=== PATIENT | male | born 1945 | race Caucasian/White ===

== ENCOUNTER 2017-11-04 05:50 | Day surgery (SDC) | payer BC ==
[2017-11-03 13:43] VITALS: BMI 34.2
[~2017-11-04 05:50] MED LIST: Cyclopentolate 1% Opth Drop 2 ML BOT FS SCH; Fluorouracil 100 MG, Enoxaparin Sodium 25 MG, EPINEPHrine 0.3 MG in Ophthalmic Irrigati... IVPB SCH; Phenylephrine 2.5% Ophth Soln 5 ML BOT FS SCH
[2017-11-04] MEDS ORDERED: Phenylephrine 2.5% Ophth Soln 5 ML BOT ONE (06:11)
[2017-11-04] MEDS ORDERED: Cyclopentolate 1% Opth Drop 2 ML BOT ONE (06:11)
[2017-11-04] MEDS ORDERED: Lidocaine 2% 10 ML INJ ONE (06:17)
[2017-11-04] MEDS ORDERED: Fentanyl 100 MCG/2 ML VIAL ONE (06:17)
[2017-11-04] MEDS ORDERED: Midazolam HCl 2 mg/2 ml Vial ONE (06:17)
[2017-11-04] MEDS ORDERED: PROPOFOL 20 ML ONE (06:17)
--- NOTE | 2017-11-04 09:43 | OP ---
DATE OF PROCEDURE: 11/04/2017 PREOPERATIVE DIAGNOSIS: Epiretinal membrane, right eye. POSTOPERATIVE DIAGNOSIS: Epiretinal membrane, right eye. PROCEDURE: Pars plana vitrectomy and membrane peel, right eye. SURGEON: Dr. Mathew Bullock ANESTHESIA: Local with monitored anesthesia care. PROCEDURE IN DETAIL: The patient was identified in the preoperative holding area. Appropriate conse nt for planned surgical procedure on the right eye been obtained. The patient was transported to the operative suite. Appropriate cardiopulmonary monitoring was established. Local anesthesia was obta ined using retrobulbar and modified Van Lint lid block using 50/50 mixture of 4% lidocaine, 0.75% bup ivacaine. The patient was prepped and draped in the usual sterile manner for ophthalmic surgery on t he right eye. Lid speculum was placed in the right eye. The 25-gauge trocars were placed in conjunc tiva and sclera supratemporally, inferotemporally, and supranasally. Infusion line was placed infero temporally. Light pipe and vitreous cutter were inserted into the eye. Core vitrectomy was performe d. Posterior hyaloid face was elevated and peeled into the periphery using vacuum suction. Indocyan ine green dye was infused on the posterior pole x1, identifying the epiretinal membrane. This was el evated using membrane scraper and peeled in several pieces across the macula. Periphery examined usi ng 360 degrees using the indirect ophthalmoscopy, no holes, breaks or tears were identified. Prophyl actic laser was placed behind the sclerotomy sites. Complete air fluid exchange was performed and ai r was left in the eye. Trocars were removed. The eye was noted to retain pressure well. Retrobulba r Kenalog and subconjunctival Ancef were placed. Atropine and antibiotic ointment were placed, and t he eye was patched and shielded. The patient was taken to the postoperative recovery unit in good co ndition having suffered no immediate perioperative complications. DISCHARGE INSTRUCTIONS: The patient was instructed to keep patch and shield on, avoid lifting or jose j ding, and follow up in the morning with Dr. Bullock.
[2017-11-04] MEDS ORDERED: PROPOFOL 200 MG/20 ML VIAL ONE (12:29)
[2017-11-04] MEDS ORDERED: Lidocaine 1% PF 5 ML VIAL ONE (12:29)
== END 2017-11-04 08:43 | disposition home or self-care (01) ==
LOC: SDC 05:50
PROVIDERS: ATTEND Ophthalmology Retina Specialist
PROC: 08NE3ZZ Release Right Retina, Percutaneous Approach (ICD-10-PCS; principal; 2017-11-04)
PROC: 08T43ZZ Resection of Right Vitreous, Percutaneous Approach (ICD-10-PCS; principal; 2017-11-04)
DX: H35.371 Puckering of macula, right eye (principal); Z79.82 Long term (current) use of aspirin; Z79.899 Other long term (current) drug therapy; Z88.0 Allergy status to penicillin; Z88.7 Allergy status to serum and vaccine; Z98.890 Other specified postprocedural states
CPT/HCPCS: J0171; J1650; J2001; J2250; J2704; J3010; J9190

== ENCOUNTER 2018-08-10 08:13 | Outpatient (CLI) | payer BC ==
[2018-08-10] MEDS ORDERED: Gadobenate Dimeglumine 529 MG/1 ML (20ML VIAL) ONE (10:26)
--- NOTE | 2018-08-10 13:22 | MRI ---
MRI BRAIN WITH AND WITHOUT CONTRAST: 08/10/2018 HISTORY: A 73-year-old male with R42, dizziness. COMPARISON: None. TECHNIQUE: Multiple sequences obtained in axial, sagittal, and coronal planes; pre and post IV injection of gado linium-based contrast agent: MultiHance 20 mL. FINDINGS: There is a small region of left frontal lobe encephalomalacia and gliosis, with no overlying post staci gical changes. There is a moderate degree of chronic ischemic white matter changes in the periventri cular and deep white matter, and some in the subcortical white matter, due to microvascular atheroscl erosis. There are also chronic ischemic white matter changes in the ned. The ventricles are normal in size and configuration. No mass effect, midline shift, extraaxial fluid collection, abnormal int raaxial enhancement, or mass. There are a few punctate foci of magnetic susceptibility artifact, ind icating remote hemorrhages, one in the right occipital lobe and two in the left posteromedial tempora l lobe, near the occipital lobe. These could represent a very mild degree of amyloid angiopathy or a very mild case of chronic hypertensive encephalopathy. There is no recent hemorrhage. There are bi lateral mastoid effusions. IMPRESSION: 1. No acute intracranial findings. 2. Small, focal, old insult in the left frontal lobe, probably an old infarction. 3. Moderate degree of chronic ischemic white matter changes. 4. Possible minimal amyloid angiopathy vs. minimal chronic hypertensive encephalopathy. 5. Bilateral mastoid effusions. DENICE Vargas POS: AMAURI
--- NOTE | 2018-08-10 14:37 | NM ---
NUCLEAR MEDICINE [facility] BRAIN SCAN: Date: 08/10/18 HISTORY: 73-year-old male with dizziness and giddiness. TECHNIQUE: Patient was premedicated with 130 mg of potassium iodide 1 hour prior to injection of radiopharmaceut ical. 4.6 mCi of I-123 Ioflupane injected IV. 3 hours later, scintigraphic images of the brain performed in axial plane. FINDINGS: There is fairly symmetrical uptake in the bilateral caudate nuclei. There is diminished uptake in the bilateral putamina. The findings are suggestive of Parkinsonism. IMPRESSION: Findings suggestive of early Parkinsonism. Recommend clinical correlation. POS: AMAURI
== END 2018-08-10 08:14 | disposition home or self-care (01) ==
LOC: NM 08:13
PROVIDERS: ATTEND Psychiatry & Neurology Neurology
DX: R42 Dizziness and giddiness (principal); H74.8X3 Other specified disorders of middle ear and mastoid, bilateral
CPT/HCPCS: 70553; 78607; 82565; A9577; A9584

== ENCOUNTER 2019-03-04 08:18 | Inpatient (IN) | payer BC, MEDICARE ==
[2019-03-04] MEDS ORDERED: PHENYLEPHRINE-NS 100 MCG/ML 10 ML SYRINGE ONE (08:29)
[2019-03-04] MEDS ORDERED: PROPOFOL 200 MG/20 ML VIAL ONE (08:29)
[2019-03-04] MEDS ORDERED: Vecuronium 10 MG VIAL ONE (08:29)
[2019-03-04] MEDS ORDERED: Rocuronium Bromide 10 MG/ML (10ML VIAL) ONE (08:29)
--- NOTE | 2019-03-04 08:40 | CT ---
EXAM: Brain CT scan Without contrast: HISTORY: Level One stroke left-sided weakness left-sided facial droop COMPARISON: Brain MRI 08/10/2018 FINDINGS: Small old left frontal cortical infarct. Small focal area of scalp swelling over the right parietal region. Atrophy and chronic white matter ischemic change. No focal mass or midline shift. No intra or extra-axial hemorrhage. Minimal mucosal disease. Bilateral mastoid abnormal opacification worse on the left unchanged from prior MRI. IMPRESSION: No significant acute mass or bleed. 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 Other findings as above. Findings discussed with Dr. Landa in the emergency room at 8:33 AM CODE CR
[2019-03-04] MEDS ORDERED: Midazolam HCl 5 mg/ml Vial ONE (08:57)
[2019-03-04] MEDS ORDERED: Succinylcholine Chloride 20 MG/ML 10 ml SYRINGE FS ONE (08:57)
[2019-03-04] MEDS ORDERED: Communication Order-Pharmacy FS ONE (09:00)
[2019-03-04] MEDS ORDERED: niCARdipine 20MG In NaCl 20 MG/200 ML BAG ONE (09:04)
[2019-03-04] MEDS ORDERED: fentaNYL Citrate/PF 2,000 MCG in Sodium Chloride 0.9% 60 ML IV SCH (09:07)
--- NOTE | 2019-03-04 09:08 | CT ---
EXAM: CT angiogram of the head including 3-D rendering: HISTORY: Left facial droop, left-sided weakness, Level One stroke alert COMPARISON: None FINDINGS: There is adequate opacification of the intracranial arteries. Visualized vertebral and basilar arteries: Unremarkable. Right and left intracranial internal carotid arteries: Calcified plaques without effusion or signific ant stenosis. Right and left Anterior and posterior cerebral arteries: Unremarkable. Right and left middle cerebral arteries: Using Nascet Criteria there is a severe stenosis of the dist al right M1 segment with intraluminal clot but without complete occlusion. No evidence for intracranial aneurysm. IMPRESSION: Severe stenosis of the distal right M1 segment without complete occlusion EXAM: CT angiogram of the neck including 3-D rendering: HISTORY: Left-sided facial droop Level One stroke COMPARISON: None FINDINGS: There is adequate opacification of the extracranial arterial tree. The origins of the right and left carotid and vertebral arteries demonstrate no significant stenosis. Right common, internal, and external carotid arteries:Calcified plaque at the origin of the ICA with mild stenosis using Nascet Criteria. Left common, internal, and external carotid arteries:Calcified plaque at the origin of the left ICA w ith mild stenosis. Moderate stenosis of the origin of the right subclavian artery. Right and left vertebral arteries and basilar artery:No significant stenosis or occlusion. Soft tissue neck demonstrates no evidence for significant adenopathy, mass, or abnormal fluid collect ion. IMPRESSION: Mild stenotic changes at the origins of the right and left ICA with calcified plaque. Moderate stenosis of the origin of the right subclavian artery. Findings were discussed with Dr. Landa in the emergency room at 9:00 AM CODE CR
[2019-03-04] MEDS ORDERED: Fentanyl 100 MCG/2 ML VIAL ONE ×2 (09:17→10:15)
[2019-03-04] MEDS ORDERED: Propofol 1,000 MG/100 ML VIAL IV ONE (09:19)
[2019-03-04 09:42] LABS: #Basophils 0.1 thou/uL (0.0-0.2); #Eosinphils 0.4 thou/uL (0.0-0.7); #Lymphocytes 1.3 thou/uL (1.20-3.40); #Monocytes 0.9 thou/uL (0.11-0.59); #Neutrophils 4.1 thou/uL (1.40-6.50); %Basophils 0.9 % (0.0-1.0); %Eosinophils 5.3 % (0.0-10.0); %Lymphocytes 18.8 % (21.0-51.0); %Monocytes 13.8 % (0.0-10.0); %Neutrophils 61.3 % (42.0-75.0); Hemoglobin 15.5 g/dL (14.0-18.0); Mean Corpuscular HGB CONC 33.9 g/dL (32.0-36.0); Mean Corpuscular Hemoglobin 33.1 pg (27.0-31.0); Mean Corpuscular Volume 97.6 fL (78.0-98.0); Platelet Count 175 thou/uL (130-400); RBC Distribution Width 12.6 % (11.5-14.5); Red Blood Cell (RBC) Count 4.68 mill/uL (4.70-6.10); White Blood Cell (WBC) Count 6.7 thou/uL (4.8-10.8)
[2019-03-04 09:49] LABS: PTT 26.8 SEC (22.9-36.1); Prothrombin Time 12.9 SEC (12.0-14.7)
[2019-03-04] MEDS ORDERED: Heparin 10,000 UNITS/1 ML VIAL ONE (09:54)
[2019-03-04] MEDS ORDERED: Lidocaine 1% (PF) 30 ML VIAL ONE (09:55)
[2019-03-04 10:01] LABS: Actual Bicarbonate (HCO3a) 23.6 mEq/L (22-28); Base Excess (BEa) -0.8 mEq/L (-2.0 to +3.0); CO2 Tension 38.2 mmHg (35.0-45.0); O2 Tension (PaO2) 372.8 mmHg (> 70.0); pH, Arterial 7.41 (7.35-7.45)
--- NOTE | 2019-03-04 10:01 | RAD ---
Exam: Chest one view HISTORY: Post intubation, left-sided chest pain FINDINGS: NG tube and endotracheal tubes are in satisfactory location. There is some mild bilateral vascular co ngestion. Minimal parenchymal changes in the left infrahilar region, nonspecific possibly chronic versus some subsegmental atelectasis versus mild pneumonitis. IMPRESSION: Life support tubes in place. Postop midline sternotomy. Increased markings in the left infrahilar reg ion, nonspecific. Mild bilateral vascular congestion. No old studies.
[2019-03-04 10:02] LABS: Analyzer IN Cardio ER; Calcium, Ionized 1.15 mmol/L (1.12-1.30); Carboxyhemoglobin (COHb) 0.3 gm% (0.0-3.0); Hemoglobin (Hb) 15.7 g/dL (14.0-18.0); Potassium - ABG Lab 4.52 mmol/L (3.70-5.30); Puncture Site RRA
[2019-03-04 10:05] LABS: ALT (SGPT) 12 U/L (8-55); AST (SGOT) 17 U/L (5-34); Alkaline Phosphatase 74 U/L (40-150); Anion Gap 12 mmol/L (10-20); BUN (Urea Nitrogen) 12 mg/dL (8.4-25.7); Bilirubin, Total 0.6 mg/dL (0.2-1.2); Calc. Creatinine Clearance 0 mL/min (70-130); Calcium 9.2 mg/dL (7.8-10.44); Carbon Dioxide 22 mmol/L (23-31); Chloride 107 mmol/L (98-107); Estimated GFR-MDRD 47; Globulin 2.8 g/dL (2.4-3.5); Glucose 87 mg/dL (83-110); Potassium 4.4 mmol/L (3.5-5.1); Protein, Total 6.8 g/dL (5.8-8.1); Sodium 137 mmol/L (136-145)
[2019-03-04] MEDS ORDERED: Rocuronium Bromide 50 MG/5 ML VIAL ONE (11:11)
--- NOTE | 2019-03-04 11:13 | PRG ---
DATE OF SERVICE: 03/04/2019 Mr. Mitchell is a 73-year-old gentleman, who had an altered level of consciousness with mild hemiparesis later this morning. He was brought into the ER, where he underwent a CT examination of the head, which was negative for hemorrhage. He was given IV tPA and he also underwent CT angiography. CT angiography revealed what was suggestive of incomplete occlusion of the right middle cerebral artery with appropriate filling to the distal vessels. Because he had mild degree of lateralizing findings, he was taken to the slab off mill tender where he underwent angiography. Angiography revealed no evidence for thrombus or occlusion. This is indicative of either artifact on the CTA or resolution of clot as a result of the tPA. He is intubated as he was intubated in the ER. He was intubated due to diminishing level of consciousness. In my view, it is conceivable there is some underlying other problem accountable for his symptoms. He will be admitted to the ICU. Medicine service has been notified by the ER. No resumed care for Mr. Mitchell. Job ID: [id number]
[2019-03-04 11:37] LABS: Actual Bicarbonate (HCO3a) 20.9 mEq/L (22-28); Analyzer IN Cardio OR; Base Excess (BEa) -2.2 mEq/L (-2.0 to +3.0); CO2 Tension 31.5 mmHg (35.0-45.0); Calcium, Ionized 1.06 mmol/L (1.12-1.30); Carboxyhemoglobin (COHb) 0.3 gm% (0.0-3.0); O2 Tension (PaO2) 137.9 mmHg (> 70.0); Potassium - ABG Lab 4.11 mmol/L (3.70-5.30); Puncture Site ALINE; pH, Arterial 7.44 (7.35-7.45)
[2019-03-04 11:38] LABS: ALV-art Gradient 105.925 (0-20)
[2019-03-04] MEDS ORDERED: hydrALAZINE 20 MG/ML VIAL ONE (12:06)
[2019-03-04] MEDS ORDERED: Iopamidol 370 76% 100 ML VIAL ONE (12:53)
[2019-03-04] MEDS ORDERED: ISOVUE-370 76%-LOCM 1 ML ONE (12:56)
[2019-03-04] MEDS ORDERED: Ondansetron PF 4 MG/2 ML Vial IVP PRN (13:18)
[2019-03-04] MEDS ORDERED: Sodium Chloride 0.65% Nasal 44 ML BOT EA NARE PRN (13:18)
[2019-03-04] MEDS ORDERED: niCARdipine 25 MG in Sodium Chloride 0.9% 250 ML 250 ML IVPB PRN (13:18)
[2019-03-04] MEDS ORDERED: Artificial Tears 18 DROP/0.9 ML EA EYE PRN (13:18)
[2019-03-04] MEDS ORDERED: Labetalol HCl 100 MG/20 ML VIAL SLOW IVP PRN (13:18)
[2019-03-04] MEDS ORDERED: hydrALAZINE 20 MG/ML VIAL SLOW IVP PRN (13:18)
[2019-03-04] MEDS ORDERED: Ventilator Sedation Protocol 1 EACH FS SCH (13:18)
--- NOTE | 2019-03-04 14:14 | HP ---
PRIMARY CARE PHYSICIAN: JANELLE Chaves REASON FOR ADMISSION: CVA status post tPA. HISTORY OF PRESENT ILLNESS: A 73-year-old male, who has history of Parkinson's disease, who was brought to emergency room for stroke-like symptoms. As per report, he had a fall, loss of consciousness and subsequently decreased responsiveness around 7:00 a.m. this morning. As per Paramedics, the patient was following some commands. He was maintaining his airway. As per family member, when he woke up , at that time the patient was fine, but all of suddenly symptoms started with falling and decreased responsiveness, which was witnessed. The patient fell down on his back and got mild contusion. The patient has underlying Parkinson's disease and he is following Dr. Gorge Fall as an outpatient basis. In our emergency room, the patient was more lethargic and for airway protection, he was intubated. The patient also received tPA. As a part of stroke workup, the patient had CT angiography, which showed severe stenosis of distal right M1 segment without complete occlusion and CT brain did not show any acute process other than old left frontal cortical infarct. There was no contraindication for tPA and after controlling blood pressure in the emergency room, the patient was given tPA and subsequently, he was taken to cardiac yard labor supervisor for cerebral angiography and as per Dr. Velasquez, there was no blockage. Subsequently, the patient is being admitted to ICU. Currently, the patient is already intubated. He cannot provide any history. ER physician has been notified pleating supervisor as well as neurosurgeon and I spoke with neurosurgeon as well. REVIEW OF SYSTEMS: All review of systems tried to be reviewed with the patient , but unable to review at this point because of intubated status. PAST MEDICAL HISTORY: Parkinson's disease and hypertension. PAST SURGICAL HISTORY: Unknown. The patient is not able to provide any history because of intubated status. FAMILY HISTORY: Unable to obtain because of intubated status. CURRENT HOME MEDICATION: Unable to obtain the patient home medication to verify. ALLERGIES: PER REPORT, THE PATIENT IS ALLERGIC TO PENICILLIN AND TETANUS TOXOID. SOCIAL HISTORY: The patient is . No history of tobacco, alcohol, or illicit drug abuse as per report. EMERGENCY ROOM COURSE: The patient is given tPA. He was given fentanyl, Diprivan as well as Cardene drip. PHYSICAL EXAMINATION: VITAL SIGNS: Currently, blood pressure 160/70, pulse 95, respiratory rate 18, and saturation 100% on ventilator. Weight 97.9 kg. GENERAL: The patient is currently intubated. HEENT: Head, mild abrasion over right occipital region noted. Eyes, pupil are reactive to light. Extraocular muscle intact. ENT, endotracheal tube in place. NECK: Supple. No JVD. LUNGS: Clear to auscultation without any rhonchi or rales. CARDIAC: S1 and S2 appears regular. No murmur. No gallop. No rub. ABDOMEN: Soft. Bowel sounds present. Nondistended. No peritoneal sign. BACK: Unremarkable. EXTREMITIES: Upper extremities, passive movement of all joints are normal. Lower extremity, no edema. NEUROLOGIC: Unable to assess at this point because he is currently intubated. SKIN: No skin rash. HEMATOLOGICAL SYSTEM: No lymphadenopathy. PSYCHIATRIC: Unable to assess at this point. SIGNIFICANT LABORATORY DATA: EKG showing sinus tachycardia, nonspecific ST-T changes. CT angiography reported as severe stenosis of distal right M1 segment without complete occlusion, moderate stenosis of right subclavian artery, vertebral and basilar artery without any stenosis. CT brain showed no acute intracranial process. CBC; WBC 6.7, hemoglobin 15.5, and platelet 175. INR 1.0. ABG; pH 7.41, CO2 of 38.2, O2 of 372, and saturation 99.4. BMP; sodium 137, potassium 4.4, chloride 107, carbon dioxide 22, BUN 12, creatinine 1.46, glucose 87, and calcium 9.2. LFT; AST 17, ALT 12, alkaline phosphatase 74, and albumin 4.0. Troponin I less than 0.010. ASSESSMENT AND PLAN: 1. Cerebrovascular accident status post tPA. CT brain is negative and CT angiography showed M1 stenosis. The patient is given tPA and the patient had cardiac cath with cerebral angiography, which was negative for any blockage. The patient is intubated for airway protection and he will be in ICU for 24 hours after tPA. 2. Acute respiratory failure, on intubation for airway protection. [facility] will be consulted for vent management. 3. Parkinson's disease. 4. Hypertension with hypertensive urgency, resolved with Cardene drip. 5. Dyslipidemia. We will continue Crestor 20 mg p.o. daily. 6. Anxiety and depression. Once we verify the patient's home medication, we will resume Lexapro and clonazepam. 7. Chronic kidney disease, stage 3. We will repeat labs tomorrow. 8. Deep venous thrombosis prophylaxis. We will start Lovenox from tomorrow. 9. Gastrointestinal prophylaxis, Pepcid 20 mg IV b.i.d. 10. Code status. The patient will be full code. The patient's is surrogate decision maker. As a part of stroke workup, we will obtain MRI brain echocardiography. We will check lipid profile, TSH tomorrow. As per protocol, we will also consult Neurology. Job ID: [id number] [facility]
[2019-03-04] MEDS ORDERED: Fentanyl BOLUS 250 ML IVPB PRN (14:29)
[2019-03-04] MEDS ORDERED: Morphine 2 MG/ML SYRINGE SLOW IVP PRN (14:29)
[2019-03-04] MEDS ORDERED: Propofol BOLUS 1,000 MG/100 ML VIAL IV PRN (14:29)
[2019-03-04] MEDS ORDERED: DISCONTINUE PREVIOUS NARCOTIC PAIN MEDICATIONS AND BENZODIAZEPINES FS SCH (14:29)
[2019-03-04] MEDS: fentaNYL Citrate/PF 2,000 MCG in Sodium Chloride 0.9% 60 ML IV SCH (14:58)
[2019-03-04] MEDS: Propofol 1,000 MG/100 ML VIAL IV PRN ×2 (16:03→21:11)
--- NOTE | 2019-03-04 17:33 | CON ---
DATE OF TELEMEDICINE CONSULTATION: 03/04/2019 JOSIE CAZARES CHIEF COMPLAINT: Acute stroke. HISTORY OF PRESENT ILLNESS: The patient's gave the medical history. The patient was awake this morning. He has been recently diagnosed with Parkinson disease. He went down to take his medications. In a little bit, the patient's found him unresponsive in the kitchen after he fell. He was following some commands Paramedics saw him, and then he woke up, but he had decreased responsiveness, and on CTA, he had M1 occlusion, IV tPA was given, and he was also taken to cardiac general labor for cerebral angiography by Dr. Velasquez, and there was no blockage. He is now admitted to the hospital, and before intubation, the nurse called me stating he was moving a lot and he was tightening his left arm and leg and he had to be intubated because of restlessness. The patient is currently intubated and sedated and some limitation to the exam because of that. The patient has been recently diagnosed with Parkinson disease. PAST MEDICAL HISTORY: Parkinson disease and hypertension. PAST SURGICAL HISTORY: Coronary artery bypass graft which was a 4-vessel bypass 12 years ago. FAMILY HISTORY: Father in his 50s from phlebitis. Mother in her 70s from coronary artery disease. Brother has cardiac or lung issue per , and she could not remember the name of the condition. The patient has 3 sons, who are all grown and healthy, youngest son is 35. No family history of strokes or Parkinson's. REVIEW OF SYSTEMS: Unable to obtain. PHYSICAL EXAMINATION: VITAL SIGNS: Blood pressure 152/64, pulse 88, respiratory rate 17, O2 saturation is 100%. He is on vent and also partial sedation with propofol during the exam. CHEST: Clear vesicular breathing. CARDIOVASCULAR: S1 and S2 heard. No murmurs. ABDOMEN: Soft. NEUROLOGIC: Pupils are 2 mm, reactive to light. Facial asymmetry with left facial weakness. He was able to protrude his tongue to command. Higher intellectual functions, he tries to obey some commands, but also has spontaneous movement. On motor examination, he was able to squeeze the examiner's hand on the left side and had spontaneous movement of the right upper extremity and lower extremity. On the left lower extremity, he tries to move it, but has positive withdrawal to pain. Involuntary movements, he had resting tremor in the right lower extremity and also left upper extremity. LABORATORY DATA: White count 6.7, hemoglobin 16.5, hematocrit 45.7, platelets 175. PT 12.9, INR 1, PTT 26.8. Chemistry: Sodium 137, potassium 4.4, chloride 107, bicarb 22, BUN 12, creatinine 1.46, glucose 87. Liver panel within normal limits for now, and he is pending cholesterol and lipid profile. IMAGING STUDIES: His CT angiography of [place] of [place] showed distal M1 severe stenosis with intraluminal clot, but without complete occlusion. He had severe stenosis of the distal right M1 segment. Angiography of the neck showed mild stenotic changes at the origin of the right ICA and left ICA with calcified plaque and moderate stenosis of the right subclavian artery. CT of the head was completed. There was an old left frontal cortical infarct. Other findings are negative. Known acute stroke was noted. In general labor, the procedural report was reviewed, and the patient had no visible clot per record. IMPRESSION: The patient is a 73-year-old man, who presented with right M1 occlusion to the ER. This was presumed to be the cause of his loss of consciousness this morning and his fall, and he had a prior stroke in the frontal area on the left side. He has Parkinson disease and also remote history of coronary artery disease at baseline. His examination showed tremor in the right lower extremity and left upper extremity and also spontaneous movement of the right side when he was more awake, and some effort with left upper extremity, not much effort with the left lower extremity. Clinical history and diagnosis most consistent with acute cerebrovascular accident in the right MCA territory. RECOMMENDATIONS: I discussed with the that it would take him some time to recover, and we will be following with them closely. Please follow acute stroke IV tPA protocol for management of his ischemic event and repeat CT tomorrow. I will follow up the patient with you. Job ID: [id number] JASMINA
[2019-03-04] MEDS: Rosuvastatin 20 MG TAB PO SCH (21:40)
--- NOTE | 2019-03-04 23:41 | CON ---
DATE OF CONSULTATION: HISTORY OF PRESENT ILLNESS: Mr. Mitchell is a 73-year-old male, who presented with altered mental status and hemiplegia. He subsequently received tPA and then went to the pathology laboratory aides teacher with Neurosurgery. He has now been admitted, mechanically ventilated in the ICU. He was sedated, when I evaluated him. PAST MEDICAL HISTORY: Remarkable for Parkinson disease and hypertension. FAMILY HISTORY: Unknown. There is no one in the room. SOCIAL HISTORY: Unknown. REVIEW OF SYSTEMS: Not obtainable. PHYSICAL EXAMINATION: VITAL SIGNS: Heart rate is 88, respiratory rate 18, oximetry is 100%, and blood pressure 152/64. He has an arterial line in. NECK: There is no cervical lymphadenopathy. LUNGS: Clear. HEART: Regular rhythm. ABDOMEN: Soft. EXTREMITIES: Without edema. LABORATORY DATA: White count 6.7, hemoglobin 15.5, and platelets 175. Sodium 137, potassium 4.4, chloride 107, bicarb 22, BUN 12, and creatinine 1.46. IMPRESSION: Hemiplegia with altered mental status, suggestive of a thrombotic cerebrovascular accident, now status post tPA. We will continue mechanical ventilation with serial neuro exams. Blood gas shows a pH 7.44, CO2 31, PO2 137 on 40%. Job ID: [id number]
[2019-03-05] MEDS: Propofol 1,000 MG/100 ML VIAL IV PRN ×3 (01:18→13:08)
[2019-03-05 04:56] LABS: Anion Gap 11 mmol/L (10-20); BUN (Urea Nitrogen) 12 mg/dL (8.4-25.7); Calc. Creatinine Clearance 80 mL/min (70-130); Calcium 8.3 mg/dL (7.8-10.44); Carbon Dioxide 23 mmol/L (23-31); Cardiac Risk 3.3 (Less than 4.5); Chloride 107 mmol/L (98-107); Cholesterol 117 mg/dl (< 200 Desired); Estimated GFR-MDRD 59; Glucose 91 mg/dL (83-110); HDL Cholesterol 36 mg/dL (>60 Neg Risk); LDL Cholesterol, Calculated 53 mg/dL; Potassium 3.7 mmol/L (3.5-5.1); Sodium 137 mmol/L (136-145); Triglycerides 140 mg/dL (Less than 150)
[2019-03-05 04:58] LABS: Band 3 % (5-11); Eosinophils 3 % (0-10); Hemoglobin 13.4 g/dL (14.0-18.0); Lymphocytes 16 % (21-51); MDiff Complete? YES; Mean Corpuscular HGB CONC 34.5 g/dL (32.0-36.0); Mean Corpuscular Hemoglobin 32.5 pg (27.0-31.0); Mean Corpuscular Volume 94.1 fL (78.0-98.0); Mean Platelet Volume 8.3 fL (7.4-10.4); Monocytes 14 % (0-10); Neutrophil 64 % (42-75); Platelet Count 193 thou/uL (130-400); Platelet Morphology Comment Appears Adequate; RBC Distribution Width 12.5 % (11.5-14.5); Red Blood Cell (RBC) Count 4.14 mill/uL (4.70-6.10); White Blood Cell (WBC) Count 9.7 thou/uL (4.8-10.8)
--- NOTE | 2019-03-05 08:19 | CT ---
PRELIMINARY REPORT/[facility]/EMERGENCY AFTER HOURS PROCEDURE: EXAM: CT Head Without Contrast EXAM DATE/TIME: 03/05/2019 4:15 AM CLINICAL HISTORY: 73 years old, male; Condition or disease; Patient HX: F/u CVA post tpa administration TECHNIQUE: Imaging protocol: Computed tomography of the head without contrast. COMPARISON: CT Brain WO Con 03/04/2019 8:29 AM FINDINGS: Brain: Volume loss and chronic small vessel ischemic change. Left frontal encephalomalacia. No intrac ranial hemorrhage. Ventricles: Right parieto-occipital cytotoxic edema compatible with known acute/subacute stroke. Bones/joints: See Mastoid Air Cells Finding. Sinuses: Complete opacification of the left maxillary sinus and partial opacification of the ethmoid air cells suspicious for sinusitis. Mastoid air cells: Partial opacification of the left mastoid air cells. No perceptible mastoid fractu re. No osseous erosion, overlying inflammation, or subperiosteal abscess to indicate mastoiditis. Soft tissues: Right parietal scalp hematoma. IMPRESSION: 1. Right parieto-occipital cytotoxic edema compatible with known acute/subacute stroke. 2. No intracranial hemorrhage. 3. Complete opacification of the left maxillary sinus and partial opacification of the ethmoid air ce lls suspicious for sinusitis. Thank you for allowing us to participate in the care of your patient. Dictated and Authenticated by: Jim Bourgeois MD 03/05/2019 4:28 AM Central Time ([place] & [place]) FINAL REPORT EMERGENCY AFTER HOURS BRAIN CT WITHOUT IV CONTRAST: Date: 03/05/19 Time: 0416 hours HISTORY: CVA. COMPARISON: 03/04/19. FINDINGS/IMPRESSION: Developing right parietooccipital edema, evidence for acute/subacute stroke findings. Complete opacif ication of the left maxillary and partial opacification of the ethmoid sinuses. Report in agreement with preliminary report given on-call by Nicholas. POS: AMAURI
[2019-03-05 08:29] LABS: Actual Bicarbonate (HCO3a) 21.4 mEq/L (22-28); Base Excess (BEa) -3.6 mEq/L (-2.0 to +3.0); CO2 Tension 38.6 mmHg (35.0-45.0); Calcium, Ionized 1.08 mmol/L (1.12-1.30); Carboxyhemoglobin (COHb) 0.9 gm% (0.0-3.0); Hemoglobin (Hb) 14.6 g/dL (14.0-18.0); O2 Tension (PaO2) 71.1 mmHg (> 70.0); pH, Arterial 7.36 (7.35-7.45)
[2019-03-05 08:33] LABS: Puncture Site ART LINE
--- NOTE | 2019-03-05 08:54 | RAD ---
Exam: Chest one view: HISTORY: Respiratory insufficiency COMPARISON: 03/04/2019 NG tube and endotracheal tubes remain in place. Stable increased markings in the infrahilar regions. No significant pneumothorax. IMPRESSION: Stable findings. Continued short-term follow-up.
[2019-03-05] MEDS: Famotidine/PF 20 mg/2ml Vial SLOW IVP SCH (09:00)
--- NOTE | 2019-03-05 10:10 | PDOC.HOSPP ---
- Subjective Encounter Date: 03/05/19 Encounter Time: 09:00 non-verbal Subjective: Patient seen and examined. pt is on ventilator, family bedside, No overnight events - Objective Vital Signs & Weight: Vital Signs (12 hours) Pulse Resp BP Pulse Ox 03/05/19 08:11 95 165/66 H 03/05/19 08:00 22 H 99 03/05/19 06:00 19 03/05/19 04:00 18 03/05/19 02:07 64 03/05/19 02:00 18 03/05/19 00:00 23 H Weight Admit Weight 231 lb 7.766 oz Weight 231 lb 7.766 oz Most Recent Monitor Data Heart Rate from ECG 83 NIBP 143/61 NIBP BP-Mean 88 Respiration from ECG 20 SpO2 96 I&O: 03/04/19 03/05/19 03/06/19 06:59 06:59 06:59 Intake Total 1589.1 Output Total 2320 190 Balance -730.9 -190 Result Diagrams: 03/05/19 04:05 03/05/19 04:05 Radiology Reviewed by me: Yes (CT brain and chest xray reviwed , echo reviewed) EKG Reviewed by me: Yes (NSR) Hospitalist ROS - Review of Systems ROS unobtainable: due to endotracheal tube - Medication Medications: Active Medications Generic Name Dose Route Start Last Admin Trade Name Freq PRN Reason Stop Dose Admin Famotidine 20 mg 03/05/19 09:00 03/05/19 09:00 Pepcid SLOW IVP 20 mg DAILY LOUIE Administration Nicardipine HCl 25 mg/ Sodium 260 mls @ 0 mls/hr 03/04/19 13:18 03/05/19 09: 02 Chloride IVPB 260 mls INF PRN Administration SBP > 180 or DBP > 105 Protocol Titrate Fentanyl Citrate 2,000 mcg/ 100 mls @ 0 mls/hr 03/04/19 14:29 03/04/19 14:58 Sodium Chloride IV 04/03/19 14:29 100 mls INF LOUIE Administration Protocol Per Protocol Propofol 1,000 mg 03/04/19 14:29 03/05/19 05:03 Diprivan IV 04/03/19 14:29 1,000 mg INF PRN Administration TO ACHIEVE GOAL RASS Protocol Rosuvastatin Calcium 20 mg 03/04/19 21:00 03/04/19 21:40 Crestor PO Not Given HS LOUIE - Exam General Appearance: NAD General - other findings: on ventilator, sedated Eye: PERRL, anicteric sclera ENT: normocephalic atraumatic, no oropharyngeal lesions Neck: supple, symmetric, no JVD, no thyromegaly, no carotid bruit Heart: RRR, no murmur, no gallops, no rubs Respiratory: CTAB, no wheezes, no rales, no ronchi Gastrointestinal: soft, non-distended, normal bowel sounds, no palpable masses, no hepatomegaly, no splenomegaly Extremities: no cyanosis, no clubbing, no edema Extremeties - other findings: scd+ Skin: normal turgor, no lesions, no rashes Neurological - other findings: unable to assess due to intubated status Musculoskeletal: normal tone Psychiatric - other findings: on ventilator Hosp A/P (1) Acute respiratory failure with hypoxia Code(s): J96.01 - ACUTE RESPIRATORY FAILURE WITH HYPOXIA Status: Acute (2) CVA (cerebral vascular accident) Code(s): I63.9 - CEREBRAL INFARCTION, UNSPECIFIED Status: Acute Qualifiers: Precerebral and cerebral artery: middle cerebral artery Laterality of affected vessel: right (3) Encephalopathy acute Code(s): G93.40 - ENCEPHALOPATHY, UNSPECIFIED Status: Acute (4) tPA adm status 24 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 Code(s): Z92.82 - S/P ADMN TPA IN DIFF FAC W/N LAST 24 HR BEF ADM TO CRNT FAC Status: Acute (5) Anxiety and depression Code(s): F41.9 - ANXIETY DISORDER, UNSPECIFIED; F32.9 - MAJOR DEPRESSIVE DISORDER, SINGLE EPISODE, UNSPECIFIED Status: Chronic (6) Dyslipidemia Code(s): E78.5 - HYPERLIPIDEMIA, UNSPECIFIED Status: Chronic (7) Glaucoma Code(s): H40.9 - UNSPECIFIED GLAUCOMA Status: Chronic (8) Hypertension Code(s): I10 - ESSENTIAL (PRIMARY) HYPERTENSION Status: Chronic (9) Obesity (BMI 30-39.9) Code(s): E66.9 - OBESITY, UNSPECIFIED Status: Chronic (10) Parkinson disease Code(s): G20 - PARKINSON'S DISEASE Status: Chronic - Plan old records reviewed/req, plan discussed w/ family, lei catheter, PT/OT, health care social worker, speech therapy, DVT proph w/lovenox, DVT proph w/SCDs plan of care discussed with and son bedside his home medication has been reconciled ventilator as per pulmonary MRI later on today Neurology, pulmonary assistance appreciated after 24 hour of TPA, will start lovenox, aspirin medication via NG tube for now medication reviewed as above symptomatic treatment
[2019-03-05] MEDS ORDERED: Vecuronium Bromide 20 MG VIAL IV SCH (10:30)
[2019-03-05] MEDS: Lorazepam 2 MG/ML VIAL SLOW IVP PRN ×2 (10:45→12:34)
[2019-03-05] MEDS: Sodium Chloride 0.9% 1,000 ML IV SCH (10:45)
[2019-03-05] MEDS ORDERED: Lisinopril 20 MG TAB PO SCH ×2 (11:15→21:00)
[2019-03-05] MEDS ORDERED: Vecuronium 10 MG VIAL IV SCH (11:45)
--- NOTE | 2019-03-05 13:17 | MRI ---
BRAIN MRI WITHOUT CONTRAST: Date: 03/05/19 COMPARISON: None. HISTORY: Stroke, left-sided facial droop, and left-sided weakness. TECHNIQUE: Multiplanar, multisequence MR imaging of the brain obtained without contrast. FINDINGS: There is multifocal restricted diffusion within the MCA territory on the right, including the posteri or superior right frontoparietal region measuring 3.7 x 1.4 cm. There is also vague restricted diffus ion consistent with acute infarction within the insula on the right and the right caudate head. In ad dition, there is an area of acute infarction within the parieto-occipital region on the right measuri ng up to 4-5 cm. There is T2 hyperintensity consistent with cytotoxic edema in the areas of multifoca l acute infarction within the right cerebral hemisphere. There is extensive opacification of bilateral ethmoid air cells and mastoid air cells. There is mucos al thickening of bilateral maxillary sinuses, left greater than right. Regional bone marrow signal in tensity is within normal limits. The axial gradient echo imaging demonstrates no evidence for acute hemorrhage. There is encephalomala fly in the left frontal lobe consistent with an area of prior infarction. Periventricular, deep, and subcortical white matter FLAIR hyperintensity noted, evidence of small vessel disease. IMPRESSION: Multifocal acute infarction within the right cerebral hemisphere. No associated hemorrhage. POS: OFF
--- NOTE | 2019-03-05 14:22 | PRG ---
DATE OF TELEMEDICINE SERVICE: 03/05/2019, JOSIE CAZARES CHIEF COMPLAINT: Acute stroke. INTERVAL HISTORY: The patient has remained on ventilator. He does react to stimuli and tries to cooperate when off sedation. At the time of my evaluation, he was on sedation today, which was done for MRI scan and his current report, MRI was completed and MRI shows multifocal acute infarction within the right cerebral hemisphere, no associated hemorrhage. His echocardiogram was also completed and ejection fraction is 55% to 60%. Normal-sized left atrium. PHYSICAL EXAMINATION: VITAL SIGNS: Blood pressure was 137/53, pulse 74, the patient was on vent, and he was afebrile, and his last temperature recording was at 98.6. GENERAL APPEARANCE: Well-built, well-nourished man, who was on sedation. Cranial nerves, pupils 2 mm reactive and equal. NEUROLOGIC: With higher intellectual functions. He was unable to obey any commands. Motor examination, he had improvement in his left hand lurer, which was more spontaneous. He did have right hand lurer as well and he had mild withdrawal to stimuli bilaterally in upper and lower extremities, despite sedation. IMPRESSION: The patient is a 73-year-old man with right middle cerebral artery infarct, currently sedated post tPA for airway protection and also to keep him calm and not be very agitated. RECOMMENDATIONS: Continue present monitoring and hopefully, he will be able to get off vent soon. I will request Dr. Fall to see the patient again tomorrow. Job ID: [id number] MTDD
--- NOTE | 2019-03-05 14:55 | PRG ---
DATE OF SERVICE: 03/05/2019 SUBJECTIVE: I am told he is moving all 4 extremities, although one of his upper extremities, I believe, his left was weaker than his right. When I saw him, he was sedated, anticipating going downstairs for an MRI. OBJECTIVE: VITAL SIGNS: Blood pressure has been reasonably well controlled at 131/60 systolic, heart rate in the 90s, respiratory rates in the 20s, oximetry is 97%. Intake and outputs positive -730. LUNGS: Clear. HEART: Regular rhythm. ABDOMEN: Soft. EXTREMITIES: Without edema. LABORATORY DATA: White count 9.7, hemoglobin 13.4, platelets 193,000. Electrolytes are normal. Blood gas; pH 7.36, CO2 38, PO2 71. IMPRESSION: 1. Respiratory failure associated with thrombotic cerebrovascular accident, status post tPA. 2. MRI has been done at the time of this dictation. Multifocal acute infarction was seen in the right cerebral hemisphere. PLAN: We will continue with supportive care. He needs sedation holiday in the morning and then an evaluation for weaning from mechanical ventilation. I met with family and answered all their questions. CRITICAL CARE TIME: 30 minutes. Job ID: [id number]
[2019-03-05] MEDS: Carbidopa/Levodopa 25-100 mg Tablet PO SCH ×2 (15:41→20:54)
[2019-03-05] MEDS: Rosuvastatin 20 MG TAB PO SCH (20:54)
[2019-03-05] MEDS: Aspirin 300 MG Suppository PR SCH (20:54)
[2019-03-05] MEDS: Aspirin 325 MG TAB PO SCH (20:54)
[2019-03-05] MEDS: Enoxaparin Sodium 30 MG/0.3 ML SYRINGE SC SCH (20:54)
[2019-03-05] MEDS: Brimonidine Tartrate 0.2% Ophth Soln 5 ml Bottle EA EYE SCH ×2 (20:55→21:16)
[2019-03-05] MEDS ORDERED: clonazePAM 1 MG TAB PO SCH (21:00)
[2019-03-06] MEDS: Propofol 1,000 MG/100 ML VIAL IV PRN ×3 (02:27→23:06)
[2019-03-06] MEDS: Sodium Chloride 0.9% 1,000 ML IV SCH ×3 (02:28→11:30)
[2019-03-06 04:50] LABS: Anion Gap 11 mmol/L (10-20); BUN (Urea Nitrogen) 11 mg/dL (8.4-25.7); Calc. Creatinine Clearance 91 mL/min (70-130); Calcium 8.1 mg/dL (7.8-10.44); Carbon Dioxide 20 mmol/L (23-31); Chloride 109 mmol/L (98-107); Estimated GFR-MDRD 68; Glucose 90 mg/dL (83-110); Potassium 3.5 mmol/L (3.5-5.1); Sodium 136 mmol/L (136-145)
[2019-03-06 05:00] LABS: Hemoglobin 12.5 g/dL (14.0-18.0); Mean Corpuscular HGB CONC 34.4 g/dL (32.0-36.0); Mean Corpuscular Hemoglobin 32.8 pg (27.0-31.0); Mean Corpuscular Volume 95.4 fL (78.0-98.0); Mean Platelet Volume 8.3 fL (7.4-10.4); Platelet Count 175 thou/uL (130-400); RBC Distribution Width 12.4 % (11.5-14.5); Red Blood Cell (RBC) Count 3.82 mill/uL (4.70-6.10); White Blood Cell (WBC) Count 9.3 thou/uL (4.8-10.8)
[2019-03-06 05:52] LABS: Band 7 % (5-11); Eosinophils 3 % (0-10); Lymphocytes 9 % (21-51); MDiff Complete? YES; Monocytes 10 % (0-10); Neutrophil 71 % (42-75)
[2019-03-06 07:40] LABS: Actual Bicarbonate (HCO3a) 20.8 mEq/L (22-28); Base Excess (BEa) -4.1 mEq/L (-2.0 to +3.0); CO2 Tension 37.5 mmHg (35.0-45.0); Calcium, Ionized 1.14 mmol/L (1.12-1.30); Carboxyhemoglobin (COHb) 1.2 gm% (0.0-3.0); Hemoglobin (Hb) 13.8 g/dL (14.0-18.0); O2 Tension (PaO2) 71.1 mmHg (> 70.0); Potassium - ABG Lab 3.73 mmol/L (3.70-5.30); pH, Arterial 7.36 (7.35-7.45)
[2019-03-06 07:44] LABS: Puncture Site ART LINE
[2019-03-06 07:45] LABS: ALV-art Gradient 167.225 (0-20)
[2019-03-06] MEDS: Carbidopa/Levodopa 25-100 mg Tablet PO SCH ×3 (08:10→20:40)
[2019-03-06] MEDS: Famotidine/PF 20 mg/2ml Vial SLOW IVP SCH (08:10)
[2019-03-06] MEDS: Multivit, Therapeutic 1 TAB PO SCH (08:10)
[2019-03-06] MEDS: Brimonidine Tartrate 0.2% Ophth Soln 5 ml Bottle EA EYE SCH ×2 (08:11→20:40)
[2019-03-06] MEDS: Lisinopril 20 MG TAB PO SCH (08:11)
[2019-03-06] MEDS: Bupropion 150 MG SR TAB PO SCH (08:12)
[2019-03-06] MEDS ORDERED: Ascorbic Acid 500 mg Chewable Tablet PO SCH (09:00)
--- NOTE | 2019-03-06 09:17 | PRG ---
DATE OF SERVICE: 03/06/2019 TIME SPENT: 35 minutes of critical care time. SUBJECTIVE: The patient remains intubated on mechanical ventilation. When sedation was lower, he did not awaken or follow commands. His blood pressure did shoot up quite high, therefore he was re-sedated. OBJECTIVE: VITAL SIGNS: Pulse 71, blood pressure 123/52 via art-line, O2 saturation 95%, respiratory rate 16, and temperature 98.2. HEENT: Pupils are 2 mm and sluggishly reactive. Sclerae are anicteric. Oropharynx clear. NECK: No adenopathy or JVD. LUNGS: Coarse breath sounds bilaterally. CARDIAC: S1 and S2. Regular. ABDOMEN: Soft, nontender to palpation. No hepatosplenomegaly. EXTREMITIES: No clubbing, cyanosis, or edema. LABORATORY DATA: PH of 7.36, pCO2 of 37, pO2 of 71, SIMV rate 12, tidal volume 500, PEEP 5, pressure support 10, and FiO2 of 40%. White blood cell count 9.3, hematocrit 36.4, and platelet count 175. Sodium 136, potassium 3.5, chloride 109, CO2 of 20, BUN 11, creatinine 1.1, and glucose 90. IMAGING DATA: His MRI from yesterday showed a large right hemispheric stroke. ASSESSMENT: 1. Cerebrovascular accident, status post tPA. 2. Large right cerebral hemisphere infarct. 3. Acute respiratory failure, requiring mechanical ventilation. PLAN: I have discussed with his at bedside on the bottom line is we really cannot proceed with weaning extubation until the patient is more awake and following commands. At the current time, all we can do is give him some time and see how this goes. We will go ahead and initiate enteral tube feeds if that has not already been done. Job ID: [id number]
--- NOTE | 2019-03-06 09:26 | RAD ---
CHEST 1 VIEW: Date: 03/06/19 HISTORY: Respiratory insufficiency. COMPARISON: 03/05/19. FINDINGS: Life support tubes remain in place. There are some increased bronchovascular markings, evidence for s ome vascular congestion, with bilateral pleural effusions, slightly progressive from prior study. IMPRESSION: Slightly progressive vascular congestion and bibasilar pleural and parenchymal opacity changes, more prominent in the left base. POS: H
--- NOTE | 2019-03-06 16:10 | PDOC.HOSPP ---
- Subjective Encounter Date: 03/06/19 Encounter Time: 16:08 Subjective: intubated and sedated, very drowsy but trying to follow PT commands - Objective Vital Signs & Weight: Vital Signs (12 hours) Temp Pulse Pulse Pulse Resp BP BP 03/06/19 15:11 75 03/06/19 14:00 24 H 03/06/19 12:00 18 03/06/19 11:00 98.1 F 03/06/19 10:43 70 03/06/19 10:11 61 66 151/60 H 03/06/19 10:00 25 H 03/06/19 09:32 67 68 132/55 L 03/06/19 08:11 154/70 H 03/06/19 08:00 18 03/06/19 07:33 79 03/06/19 07:00 98.2 F 03/06/19 06:00 20 BP Pulse Ox Pulse Ox Pulse Ox 03/06/19 15:11 03/06/19 14:00 03/06/19 12:00 03/06/19 11:00 03/06/19 10:43 03/06/19 10:11 137/56 L 100 99 03/06/19 10:00 03/06/19 09:32 136/57 L 03/06/19 08:11 03/06/19 08:00 99 03/06/19 07:33 03/06/19 07:00 03/06/19 06:00 Weight Admit Weight 231 lb 7.766 oz Weight 231 lb 7.766 oz Most Recent Monitor Data Heart Rate from ECG 83 NIBP 123/65 NIBP BP-Mean 84 Respiration from ECG 23 SpO2 94 I&O: 03/05/19 03/06/19 03/07/19 06:59 06:59 06:59 Intake Total 1589.1 2656.8 120 Output Total 2320 1180 445 Balance -730.9 1476.8 -325 Result Diagrams: 03/06/19 03:55 03/06/19 03:55 Hospitalist ROS - Medication Medications: Active Medications Generic Name Dose Route Start Last Admin Trade Name Freq PRN Reason Stop Dose Admin Aspirin 300 mg 03/05/19 21:00 03/05/19 20:54 Aspirin GA Not Given HS LOUIE Aspirin 325 mg 03/05/19 21:00 03/05/19 20:54 Aspirin PO 325 mg HS LOUIE Administration Brimonidine Tartrate 1 drop 03/05/19 21:00 03/06/19 08:11 Alphagan 0.2% Ophth Soln EA EYE 1 drop BID LOUIE Administration Bupropion HCl 150 mg 03/06/19 09:00 03/06/19 08:12 Wellbutrin Sr PO Not Given DAILY LOUIE Carbidopa/Levodopa 1 tab 03/05/19 15:00 03/06/19 14:34 Sinemet 25-100 PO 1 tab TID LOUIE Administration Enoxaparin Sodium 30 mg 03/05/19 21:00 03/05/19 20:54 Lovenox SC 30 mg 2100 LOUIE Administration Famotidine 20 mg 03/05/19 09:00 03/06/19 08:10 Pepcid SLOW IVP 20 mg DAILY LOUIE Administration Nicardipine HCl 25 mg/ Sodium 260 mls @ 0 mls/hr 03/04/19 13:18 03/05/19 09: 02 Chloride IVPB 260 mls INF PRN Administration SBP > 180 or DBP > 105 Protocol Titrate Fentanyl Citrate 2,000 mcg/ 100 mls @ 0 mls/hr 03/04/19 14:29 03/04/19 14:58 Sodium Chloride IV 04/03/19 14:29 100 mls INF LOUIE Administration Protocol Per Protocol Sodium Chloride 1,000 mls @ 75 mls/hr 03/04/19 19:15 03/06/19 11:30 Normal Saline 0.9% IV 1,000 mls .[id number] LOUIE Administration Dexmedetomidine HCl 400 mcg/ 100 mls @ 0 mls/hr 03/05/19 18:15 03/06/19 06:13 Sodium Chloride IVPB 100 mls INF LOUIE Administration Protocol Per Protocol Lisinopril 20 mg 03/06/19 09:00 03/06/19 08:11 Zestril PO 20 mg DAILY LOUIE Administration Lorazepam 2 mg 03/04/19 14:29 03/05/19 12:34 Ativan SLOW IVP 04/03/19 14:29 2 mg Q1H PRN Administration Breakthrough agitation Multivitamins 1 tab 03/06/19 09:00 03/06/19 08:10 Theragran PO 1 tab DAILY LOUIE Administration Propofol 1,000 mg 03/04/19 14:29 03/06/19 02:27 Diprivan IV 04/03/19 14:29 1,000 mg INF PRN Administration TO ACHIEVE GOAL RASS Protocol Rosuvastatin Calcium 20 mg 03/04/19 21:00 03/05/19 20:54 Crestor PO 20 mg HS LOUIE Administration - Exam General - other findings: intubated and sedated ENT: normocephalic atraumatic, no oropharyngeal lesions, moist mucosa Neck: supple, symmetric, no JVD, no thyromegaly Heart: RRR, no murmur, no gallops, no rubs, normal peripheral pulses Respiratory - other findings: intubated and sedated Gastrointestinal: soft, non-tender, non-distended, normal bowel sounds Extremities: no cyanosis, no clubbing, no edema Skin: normal turgor, no lesions, no rashes Neurological - other findings: intubated and sedated Hosp A/P (1) Acute respiratory failure with hypoxia Code(s): J96.01 - ACUTE RESPIRATORY FAILURE WITH HYPOXIA Status: Acute (2) CVA (cerebral vascular accident) Code(s): I63.9 - CEREBRAL INFARCTION, UNSPECIFIED Status: Acute Qualifiers: Precerebral and cerebral artery: middle cerebral artery Laterality of affected vessel: right (3) Encephalopathy acute Code(s): G93.40 - ENCEPHALOPATHY, UNSPECIFIED Status: Acute (4) 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 --S/P TPA, intubated for acute encephalopathy and respiratory failure --Started on aspirin --Continue Nicardipine for BP control --CTH with acute stroke and right parieto occipital edema --MRI showing multifocal acute infarction of right cerebrum --Angiogram shwoing severe stenotic M1 segment of middle cerbral artey and mod stenosis of B/L ICA dw NURSE, . Continue Lovenox for DVT prophylaxis
[2019-03-06] MEDS: Rosuvastatin 20 MG TAB PO SCH (20:40)
[2019-03-06] MEDS: Aspirin 325 MG TAB PO SCH (20:40)
[2019-03-06] MEDS: Enoxaparin Sodium 30 MG/0.3 ML SYRINGE SC SCH (20:40)
[2019-03-06] MEDS: Aspirin 300 MG Suppository PR SCH (20:41)
[2019-03-07] MEDS: Sodium Chloride 0.9% 1,000 ML IV SCH ×2 (01:43→15:10)
[2019-03-07 05:32] LABS: Band 16 % (5-11); Eosinophils 3 % (0-10); Hemoglobin 12.1 g/dL (14.0-18.0); Lymphocytes 6 % (21-51); MDiff Complete? YES; Mean Corpuscular HGB CONC 33.9 g/dL (32.0-36.0); Mean Corpuscular Hemoglobin 32.3 pg (27.0-31.0); Mean Corpuscular Volume 95.2 fL (78.0-98.0); Mean Platelet Volume 8.6 fL (7.4-10.4); Monocytes 10 % (0-10); Neutrophil 64 % (42-75); Platelet Count 172 thou/uL (130-400); RBC Distribution Width 12.3 % (11.5-14.5); Red Blood Cell (RBC) Count 3.76 mill/uL (4.70-6.10); White Blood Cell (WBC) Count 12.7 thou/uL (4.8-10.8)
[2019-03-07 05:34] LABS: Anion Gap 10 mmol/L (10-20); BUN (Urea Nitrogen) 12 mg/dL (8.4-25.7); Calc. Creatinine Clearance 92 mL/min (70-130); Calcium 8.1 mg/dL (7.8-10.44); Carbon Dioxide 21 mmol/L (23-31); Chloride 108 mmol/L (98-107); Estimated GFR-MDRD 69; Glucose 111 mg/dL (83-110); Potassium 3.7 mmol/L (3.5-5.1); Sodium 135 mmol/L (136-145)
[2019-03-07] MEDS: Propofol 1,000 MG/100 ML VIAL IV PRN ×2 (07:00→23:43)
[2019-03-07 07:03] LABS: Actual Bicarbonate (HCO3a) 19.9 mEq/L (22-28); Base Excess (BEa) -4.1 mEq/L (-2.0 to +3.0); CO2 Tension 32.5 mmHg (35.0-45.0); Calcium, Ionized 1.14 mmol/L (1.12-1.30); Carboxyhemoglobin (COHb) 0.9 gm% (0.0-3.0); Hemoglobin (Hb) 11.4 g/dL (14.0-18.0); O2 Tension (PaO2) 112.7 mmHg (> 70.0); Potassium - ABG Lab 3.52 mmol/L (3.70-5.30)
[2019-03-07 07:05] LABS: ALV-art Gradient 131.875 (0-20); Puncture Site LRA
--- NOTE | 2019-03-07 09:23 | RAD ---
PORTABLE CHEST: HISTORY: Respiratory distress. COMPARISON: 03/06/2019 study. FINDINGS: Heart size appears slightly enlarged. There are postop sternotomy changes. Endotracheal and NG Tube s are in satisfactory [id number]. Bibasilar parenchymal lung changes and pleural changes in the left base all appear unchanged since the prior exam. IMPRESSION: Stable exam. POS: OFF
[2019-03-07] MEDS: Multivit, Therapeutic 1 TAB PO SCH (11:00)
[2019-03-07] MEDS: Bupropion 150 MG SR TAB PO SCH (11:00)
[2019-03-07] MEDS: Brimonidine Tartrate 0.2% Ophth Soln 5 ml Bottle EA EYE SCH ×2 (11:01→20:44)
[2019-03-07] MEDS: Famotidine/PF 20 mg/2ml Vial SLOW IVP SCH (11:02)
[2019-03-07] MEDS: Carbidopa/Levodopa 25-100 mg Tablet PO SCH ×3 (11:47→20:42)
[2019-03-07] MEDS: Lisinopril 20 MG TAB PO SCH (11:49)
[2019-03-07] MEDS: Scopolamine 1.5 mg/72 hour Patch TD SCH (13:32)
--- NOTE | 2019-03-07 13:34 | PQF ---
CLINICAL DOCUMENTATION IMPROVEMENT CLARIFICATION FORM: ICD-10 Updated PLEASE DO AN ADDENDUM TO THE PROGRESS NOTE WITH ANY DOCUMENTATION UPDATES OR ADDITIONS AND CARRY THROUGH TO DC SUMMARY. THANK YOU. DATE: 03/08/19 ATTN: DR. ESCAMILLA Please exercise your independent, professional judgment in responding to the clarification form. Clinical indicators are provided on the bottom of this form for your review Please check appropriate box(s): [ x] Encephalopathy: Type: [x ] Acute [ ] Subacute [ ] Chronic Etiology: [ ] Hypertensive [ ] Metabolic [ ] Toxic [ ] Hepatic with Coma [ ] Hepatic w/o Coma [ ] Hypoxic [ ] Septic [ ] Drug induced: [ ] Unspecified [ ] in the setting of underlying dementia [ ] Other (please specify) [ ] Transient Alteration of Awareness [ x ] Other diagnosis __secondary to CVA with infarct [ ] Unable to determine In addition, please specify: Present on Admission (POA): [x ] Yes [ ] No [ ] Unable to determine For continuity of documentation, please document condition throughout progress notes and discharge summary. Thank You. CLINICAL INDICATORS - SIGNS / SYMPTOMS / LABS CONSULTATION NOTE 03/04: "ACUTE ENCEPHALOPATHY" RISKS: CVA (PROGRESS NOTE 03/05) HTN (PROGRESS NOTE 03/05) PARKINSON'S DISEASE (PROGRESS NOTE 03/05) TREATMENT: BRAIN CT (03/04) CRITICAL CARE MONITORING IV ATIVAN (03/04-PRESENT) (This form is maintained as a part of the permanent medical record) 2014 [employer]. All Rights Reserved JOSIE [email or web address] Office: [phone] JASMINA
--- NOTE | 2019-03-07 14:58 | PDOC.HOSPP ---
- Subjective Encounter Date: 03/07/19 Encounter Time: 14:56 non-verbal Subjective: More awake with mild sedation, no obvious discomfort - Objective Vital Signs & Weight: Vital Signs (12 hours) Temp Pulse Pulse Pulse Resp BP BP 03/07/19 14:41 80 138/76 03/07/19 14:00 25 H 03/07/19 13:00 98.8 F 03/07/19 12:00 15 03/07/19 11:04 84 96 128/62 03/07/19 11:00 98.7 F 03/07/19 10:13 68 154/68 H 03/07/19 10:00 26 H 03/07/19 08:00 12 03/07/19 06:06 54 L 126/66 03/07/19 06:00 12 03/07/19 04:00 97.8 F 12 BP Pulse Ox Pulse Ox 03/07/19 14:41 03/07/19 14:00 03/07/19 13:00 03/07/19 12:00 03/07/19 11:04 154/68 H 98 98 03/07/19 11:00 03/07/19 10:13 03/07/19 10:00 03/07/19 08:00 03/07/19 06:06 03/07/19 06:00 03/07/19 04:00 Weight Admit Weight 231 lb 7.766 oz Weight 231 lb 7.766 oz Most Recent Monitor Data Heart Rate from ECG 97 NIBP 161/86 NIBP BP-Mean 111 Respiration from ECG 19 SpO2 97 I&O: 03/06/19 03/07/19 03/08/19 06:59 06:59 06:59 Intake Total 2656.8 2902 120 Output Total 1180 2400 540 Balance 1476.8 502 -420 Result Diagrams: 03/07/19 04:21 03/07/19 04:22 Hospitalist ROS - Medication Medications: Active Medications Generic Name Dose Route Start Last Admin Trade Name Freq PRN Reason Stop Dose Admin Aspirin 300 mg 03/05/19 21:00 03/06/19 20:41 Aspirin VT Not Given HS LOUIE Brimonidine Tartrate 1 drop 03/05/19 21:00 03/07/19 11:01 Alphagan 0.2% Ophth Soln EA EYE 1 drop BID LOUIE Administration Bupropion HCl 150 mg 03/06/19 09:00 03/07/19 11:00 Wellbutrin Sr PO Not Given DAILY LOUIE Carbidopa/Levodopa 1 tab 03/05/19 15:00 03/07/19 11:47 Sinemet 25-100 PO 1 tab TID LOUIE Administration Enoxaparin Sodium 30 mg 03/05/19 21:00 03/06/19 20:40 Lovenox SC 30 mg 2100 LOUIE Administration Nicardipine HCl 25 mg/ Sodium 260 mls @ 0 mls/hr 03/04/19 13:18 03/05/19 09: 02 Chloride IVPB 260 mls INF PRN Administration SBP > 180 or DBP > 105 Protocol Titrate Fentanyl Citrate 2,000 mcg/ 100 mls @ 0 mls/hr 03/04/19 14:29 03/04/19 14:58 Sodium Chloride IV 04/03/19 14:29 100 mls INF LOUIE Administration Protocol Per Protocol Sodium Chloride 1,000 mls @ 75 mls/hr 03/04/19 19:15 03/07/19 01:43 Normal Saline 0.9% IV 1,000 mls .[id number] LOUIE Administration Dexmedetomidine HCl 400 mcg/ 100 mls @ 0 mls/hr 03/05/19 18:15 03/07/19 12:11 Sodium Chloride IVPB 100 mls INF LOUIE Administration Protocol Per Protocol Lisinopril 20 mg 03/06/19 09:00 03/07/19 11:49 Zestril PO 20 mg DAILY LOUIE Administration Lorazepam 2 mg 03/04/19 14:29 03/05/19 12:34 Ativan SLOW IVP 04/03/19 14:29 2 mg Q1H PRN Administration Breakthrough agitation Propofol 1,000 mg 03/04/19 14:29 03/07/19 07:00 Diprivan IV 04/03/19 14:29 1,000 mg INF PRN Administration TO ACHIEVE GOAL RASS Protocol Rosuvastatin Calcium 20 mg 03/04/19 21:00 03/06/19 20:40 Crestor PO 20 mg HS LOUIE Administration Scopolamine 1.5 mg 03/07/19 14:00 03/07/19 13:32 Transderm Scop TD 1.5 mg Q3D LOUIE Administration - Exam General - other findings: arousable, following commands Eye: PERRL, anicteric sclera ENT: normocephalic atraumatic, no oropharyngeal lesions ENT - other findings: + INTUBATION + ng TUBE Neck: supple, symmetric, no JVD Heart: RRR, no murmur, no gallops Respiratory: rales Gastrointestinal: soft, non-tender, non-distended Extremities: no cyanosis, no clubbing, no edema Neurological: CN's grossly intact Neurological - other findings: CONTINUED TO BE MILDLY SEDATED, DECREASED RIGHT UE STRENGTH? 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 --S/P TPA, intubated for acute encephalopathy and respiratory failure. Spontaneous on Vent, continued to be intubated, possible extubation on 03/08 --Started on aspirin --off of Nicardipine gtt for BP control --CTH with acute stroke and right parieto occipital edema --MRI showing multifocal acute infarction of right cerebrum --Angiogram showing severe stenotic M1 segment of middle cerbral artey and mod stenosis of B/L ICA dw . Continue Lovenox for DVT prophylaxis
--- NOTE | 2019-03-07 16:26 | PRG ---
DATE OF SERVICE: 03/07/2019 SUBJECTIVE: Claude Mitchell will awaken and move his extremities. His negative inspiratory force was -50. He is having issues with secretions both oral and tracheobronchial. Decreased his ventilatory support to 5/5 and we will observe him overnight. If he remains stable, we will have to bite the bullet and extubate him in the morning. OBJECTIVE: LUNGS: Remarkable for coarse and equal breath sounds. HEART: Regular rhythm. ABDOMEN: Soft. IMAGING DATA: Chest x-ray is unchanged. LABORATORY DATA: White count 12.7, hemoglobin 12.1, platelets 172. Sodium 135, potassium 3.7, chloride 108, bicarb 21, BUN 12, and creatinine 1.05, pH 7.40, CO2 32, PO2 112. IMPRESSION: Cerebrovascular accident. It was explained to the that we will not know about his ability to swallow and the secretions until he is extubated. I would like to try to get him extubated tomorrow, but I would like to have him have a stable 24 hours with minimal ventilatory support. His current settings will eliminate tube resistance. Hopefully, we can consider extubation tomorrow. CRITICAL CARE TIME: 30 minutes. Job ID: [id number]
[2019-03-07] MEDS: Famotidine 20 MG TAB PO SCH (20:42)
[2019-03-07] MEDS: Rosuvastatin 20 MG TAB PO SCH (20:42)
[2019-03-07] MEDS: Aspirin 300 MG Suppository PR SCH (20:43)
[2019-03-07] MEDS: Enoxaparin Sodium 30 MG/0.3 ML SYRINGE SC SCH (20:43)
[2019-03-08] MEDS ORDERED: Acetaminophen 1,000 MG in Premix Bag 1 BAG IVPB SCH (00:45)
[2019-03-08 00:48] LABS: Bacteria/HPF None Seen HPF (None Seen); Bilirubin Negative (Negative); Blood, Urine 1+ (Negative); Clarity Clear (Clear); Glucose, Urine (Dipstick) Normal (Negative); Leukocyte Negative Leu/uL (Negative); Mucous/LPF Rare LPF (<2+); Nitrite Negative (Negative); Protein, Urine (Dipstick) 50 mg/dL (Neg-Trace); Squamous Epithelial None Seen HPF (0-3); Urobilinogen Normal mg/dL (Less than 2); WBC/HPF 0-3 HPF (0-3)
[2019-03-08 00:54] LABS: Urine Culture Reflex No No
[2019-03-08] MEDS: Sodium Chloride 0.9% 1,000 ML IV SCH ×2 (05:11→18:05)
[2019-03-08 05:50] LABS: Hemoglobin 12.2 g/dL (14.0-18.0); Mean Corpuscular HGB CONC 33.4 g/dL (32.0-36.0); Mean Corpuscular Hemoglobin 31.9 pg (27.0-31.0); Mean Corpuscular Volume 95.4 fL (78.0-98.0); Mean Platelet Volume 8.7 fL (7.4-10.4); Platelet Count 203 thou/uL (130-400); RBC Distribution Width 12.2 % (11.5-14.5); Red Blood Cell (RBC) Count 3.83 mill/uL (4.70-6.10); White Blood Cell (WBC) Count 9.1 thou/uL (4.8-10.8)
[2019-03-08 06:01] LABS: Band 21 % (5-11); Eosinophils 1 % (0-10); Lymphocytes 5 % (21-51); MDiff Complete? YES; Monocytes 12 % (0-10); Neutrophil 60 % (42-75); Reactive Lymphocytes 1 % (0-10)
[2019-03-08 06:10] LABS: Anion Gap 11 mmol/L (10-20); BUN (Urea Nitrogen) 13 mg/dL (8.4-25.7); Calc. Creatinine Clearance 105 mL/min (70-130); Calcium 8.3 mg/dL (7.8-10.44); Carbon Dioxide 21 mmol/L (23-31); Chloride 108 mmol/L (98-107); Estimated GFR-MDRD 82; Glucose 107 mg/dL (83-110); Potassium 3.5 mmol/L (3.5-5.1); Sodium 136 mmol/L (136-145)
[2019-03-08] MEDS: Carbidopa/Levodopa 25-100 mg Tablet PO SCH ×3 (07:09→20:38)
[2019-03-08] MEDS: Lisinopril 20 MG TAB PO SCH (07:09)
[2019-03-08] MEDS: Famotidine 20 MG TAB PO SCH ×2 (07:09→20:37)
[2019-03-08] MEDS: Bupropion 150 MG SR TAB PO SCH (07:10)
[2019-03-08] MEDS: Brimonidine Tartrate 0.2% Ophth Soln 5 ml Bottle EA EYE SCH ×2 (07:10→20:38)
[2019-03-08 07:28] LABS: Actual Bicarbonate (HCO3a) 20.7 mEq/L (22-28); Base Excess (BEa) -3.2 mEq/L (-2.0 to +3.0); CO2 Tension 33.7 mmHg (35.0-45.0); Calcium, Ionized 1.16 mmol/L (1.12-1.30); Carboxyhemoglobin (COHb) 0.5 gm% (0.0-3.0); O2 Tension (PaO2) 100.3 mmHg (> 70.0); Potassium - ABG Lab 3.52 mmol/L (3.70-5.30); pH, Arterial 7.41 (7.35-7.45)
[2019-03-08 07:30] LABS: ALV-art Gradient 142.775 (0-20); Puncture Site RRA
[2019-03-08] MEDS: Multivits W-Minerals Liquid 15mL UDCUP PER TUBE SCH (08:40)
--- NOTE | 2019-03-08 08:48 | RAD ---
CHEST ONE VIEW: HISTORY: Respiratory insufficiency. COMPARISON: 03/07/2019 FINDINGS: Stable life support tubes with bilateral vascular congestion and bilateral pleural effusions, showing worsening when compared to the prior study. IMPRESSION: Worsening vascular congestion and pleural effusions from prior examination. Continued short-term followup. POS: [facility]
[2019-03-08] MEDS ORDERED: Midazolam HCl 2 mg/2 ml Vial ONE (11:18)
[2019-03-08] MEDS: Lorazepam 2 MG/ML VIAL SLOW IVP PRN (11:37)
[2019-03-08 12:08] LABS: Actual Bicarbonate (HCO3a) 20.2 mEq/L (22-28); Base Excess (BEa) -4.4 mEq/L (-2.0 to +3.0); CO2 Tension 35.5 mmHg (35.0-45.0); Calcium, Ionized 1.15 mmol/L (1.12-1.30); Carboxyhemoglobin (COHb) 0.6 gm% (0.0-3.0); Hemoglobin (Hb) 12.6 g/dL (14.0-18.0); O2 Tension (PaO2) 106.2 mmHg (> 70.0); Potassium - ABG Lab 3.26 mmol/L (3.70-5.30); pH, Arterial 7.37 (7.35-7.45)
[2019-03-08 12:11] LABS: ALV-art Gradient 205.925 (0-20); Puncture Site RRA
[2019-03-08] MEDS: Propofol 1,000 MG/100 ML VIAL IV PRN (13:07)
[2019-03-08] MEDS: fentaNYL Citrate/PF 2,000 MCG in Sodium Chloride 0.9% 60 ML IV SCH (14:46)
--- NOTE | 2019-03-08 17:34 | PRG ---
DATE OF SERVICE: 03/08/2019 SUBJECTIVE: Mr. Mitchell this morning looked well once the sedation was held. His sedation has been turned up overnight as was his mechanical ventilation. He met criteria for weaning. He passed a leak test. OBJECTIVE: LUNGS: Clear. HEART: Regular rhythm. ABDOMEN: Soft and nontender. EXTREMITIES: Without asymmetry. He is moving all 4 extremities, although it was difficult to say whether or not it was equally. LABORATORY DATA: White count 9.1, hemoglobin 12.2, platelets 203,000. Sodium 136, potassium 3.5, chloride 108, bicarb 29, BUN 30, creatinine 0.9. PH was 7.41, CO2 of 33, PO2 of 100. He was successfully extubated. About 30 minutes after extubation, he became very hoarse and then very stridorous. I presented to the bedside. He is unable to speak. He was adequately oxygenating and had no signs of muscle fatigue. Bronchoscope was quickly set up with an endotracheal tube over it. The scope was passed into his mouth. He had copious secretions retained in his upper airway. I was thinking initially that maybe this and his tongue were contributing to his stridor, but once all the secretions were cleared, it became apparent that this was all vocal cord edema. He had a very small orifice posteriorly that I fortunately was able to get the bronchoscope through, followed by an endotracheal tube, which was secured above the scott. He was connected to mechanical ventilation and sedated. When I went out to explain to his what it happened (she was actually in the room when all of this started), she said this exact same thing happened when he had bypass surgery in the past and then he ended up being hoarse for over a month. Because of his failure to adequately handle secretions after extubation combined with severe vocal cord edema, I recommended going ahead and proceeding with a tracheostomy. If it was vocal cord edema alone, I would not recommend this. Since he cannot handle saliva, it is unlikely he will handle nutrition in liquids, I have recommended a PEG as well. General Surgery has been consulted. Critical care time 45 minutes independent of the procedure. Job ID: [id number]
--- NOTE | 2019-03-08 20:33 | PDOC.HOSPP ---
- Subjective Encounter Date: 03/08/19 Encounter Time: 17:00 Subjective: Extubation trial failed, reintubated with plan for trach/peg on 03/10. Off nicardipine gtt. Difficulty managing his own secretions. Some spontaneous bilateral movements per nurse. Intubated and sedated at the time of my visit this evening. - Objective Vital Signs & Weight: Vital Signs (12 hours) Temp Pulse Resp Pulse Ox 03/08/19 20:00 99.7 F H 14 03/08/19 19:56 98 03/08/19 18:00 16 03/08/19 17:00 99.3 F 03/08/19 16:26 86 03/08/19 16:00 17 03/08/19 14:00 22 H 03/08/19 13:41 65 03/08/19 13:00 99.3 F 03/08/19 12:00 14 03/08/19 11:45 24 H 03/08/19 11:25 71 03/08/19 10:00 18 Weight Admit Weight 231 lb 7.766 oz Weight 227 lb 8.273 oz Most Recent Monitor Data Heart Rate from ECG 92 NIBP 170/80 NIBP BP-Mean 110 Respiration from ECG 15 SpO2 98 I&O: 03/07/19 03/08/19 03/09/19 06:59 06:59 06:59 Intake Total 2902 3296.7 1042.7 Output Total 2400 2175 1146 Balance 502 1121.7 -103.3 Result Diagrams: 03/08/19 04:54 03/08/19 04:54 Hospitalist ROS - Medication Medications: Active Medications Generic Name Dose Route Start Last Admin Trade Name Freq PRN Reason Stop Dose Admin Aspirin 300 mg 03/05/19 21:00 03/07/19 20:43 Aspirin [place] 300 mg HS LOUIE Administration Brimonidine Tartrate 1 drop 03/05/19 21:00 03/08/19 07:10 Alphagan 0.2% Ophth Soln EA EYE 1 drop BID LOUIE Administration Bupropion HCl 150 mg 03/06/19 09:00 03/08/19 07:10 Wellbutrin Sr PO Not Given DAILY LOUIE Carbidopa/Levodopa 1 tab 03/08/19 14:00 03/08/19 14:00 Sinemet 25-100 PO Not Given Q8HR LOUIE Enoxaparin Sodium 30 mg 03/05/19 21:00 03/07/19 20:43 Lovenox SC 30 mg 2100 LOUIE Administration Famotidine 20 mg 03/07/19 21:00 03/08/19 07:09 Pepcid PO 20 mg BID LOUIE Administration Nicardipine HCl 25 mg/ Sodium 260 mls @ 0 mls/hr 03/04/19 13:18 03/05/19 09: 02 Chloride IVPB 260 mls INF PRN Administration SBP > 180 or DBP > 105 Protocol Titrate Fentanyl Citrate 2,000 mcg/ 100 mls @ 0 mls/hr 03/04/19 14:29 03/08/19 14:46 Sodium Chloride IV 04/03/19 14:29 100 mls INF LOUIE Administration Protocol Per Protocol Sodium Chloride 1,000 mls @ 75 mls/hr 03/04/19 19:15 03/08/19 18:05 Normal Saline 0.9% IV 1,000 mls .[id number] LOUIE Administration Dexmedetomidine HCl 400 mcg/ 100 mls @ 0 mls/hr 03/05/19 18:15 03/08/19 08:37 Sodium Chloride IVPB 100 mls INF LOUIE Administration Protocol Per Protocol Iron/Minerals/Multivitamins 15 ml 03/08/19 09:00 03/08/19 08:40 Certa Nickolas Liquid PER TUBE 15 ml DAILY LOUIE Administration Lisinopril 20 mg 03/06/19 09:00 03/08/19 07:09 Zestril PO 20 mg DAILY LOUIE Administration Lorazepam 2 mg 03/04/19 14:29 03/08/19 11:37 Ativan SLOW IVP 04/03/19 14:29 2 mg Q1H PRN Administration Breakthrough agitation Propofol 1,000 mg 03/04/19 14:29 03/08/19 13:07 Diprivan IV 04/03/19 14:29 1,000 mg INF PRN Administration TO ACHIEVE GOAL RASS Protocol Rosuvastatin Calcium 20 mg 03/04/19 21:00 03/07/19 20:42 Crestor PO 20 mg HS LOUIE Administration Scopolamine 1.5 mg 03/07/19 14:00 03/07/19 13:32 Transderm Scop TD 1.5 mg Q3D LOUIE Administration Sodium Chloride 10 ml 03/07/19 21:00 03/08/19 07:10 Flush - Normal Saline IVF 10 ml Q12HR LOUIE Administration - Exam General - other findings: Intubated, sedated Eye - other findings: Pupils reactive bilaterally ENT - other findings: ETT Neck: no JVD Heart: RRR Respiratory - other findings: Transmitted upper airway noise, clears with suction Gastrointestinal: soft, non-tender Extremeties - other findings: trace edema Skin: no rashes Neurological - other findings: Moves ext spontaneously Psychiatric - other findings: Sedated Hosp A/P (1) Acute respiratory failure with hypoxia Code(s): J96.01 - ACUTE RESPIRATORY FAILURE WITH HYPOXIA Status: Acute (2) CVA (cerebral vascular accident) Code(s): I63.9 - CEREBRAL INFARCTION, UNSPECIFIED Status: Acute Qualifiers: Precerebral and cerebral artery: middle cerebral artery Laterality of affected vessel: right (3) Encephalopathy acute Code(s): G93.40 - ENCEPHALOPATHY, UNSPECIFIED Status: Acute (4) 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
[2019-03-08] MEDS: Aspirin 300 MG Suppository PR SCH (20:38)
[2019-03-08] MEDS: Rosuvastatin 20 MG TAB PO SCH (20:38)
[2019-03-08] MEDS: Enoxaparin Sodium 30 MG/0.3 ML SYRINGE SC SCH (20:39)
--- NOTE | 2019-03-08 23:32 | CON ---
DATE OF CONSULTATION: HISTORY OF PRESENT ILLNESS: Claude Mitchell is a 73-year-old male patient, who has respiratory failure and has had in the past after coronary bypass grafting 10 years ago, a prolonged period of hoarseness and stridor and attempts to extubate him have been not successful. Dr. Castillo has asked me to see him regarding placement of a tracheostomy and a PEG tube. We will plan that for Wednesday. The patient is ventilatory dependent with acute respiratory failure with hypoxia, recent stroke, MCA, encephalopathy, malnutrition, anxiety, depression, glaucoma, and hypertension. ALLERGIES: PENICILLIN, TETANUS, AND DIPHTHEROID. PAST MEDICAL HISTORY: Parkinson disease, hypertension, coronary artery disease, recent stroke with near-complete recovery after tPA administration by Neurosurgery. Neurosurgeon, Dr. Velasquez. PAST SURGICAL HISTORY: Coronary artery bypass grafting four vessels 12 years ago. PREHOSPITALIZATION MEDICATIONS: 1. Carbidopa. 2. Levodopa. 3. Bupropion. 4. Aspirin. 5. Crestor. 6. [place]-3. 7. Multivitamin. 8. Lisinopril. 9. Clonazepam. 10. Inhalers. 11. Eyedrops. PHYSICAL EXAMINATION: GENERAL: The patient on the ventilator. He is sedated. His is at the bedside. VITAL SIGNS: Blood pressure 166/84, pulse 76, 111 MAP, saturation 99%. LUNGS: Clear to auscultation. CARDIAC: Regular rate and rhythm without murmur or gallop. ABDOMEN: Soft, obese, nontender. Scar per sternotomy. EXTREMITIES: Unremarkable. ASSESSMENT AND PLAN: Recent stroke, status post tPA with neurologic recovery, but respiratory failure. Plan placement of tracheostomy and PEG tube in 48 hours, Wednesday. I have discussed with the patient's at the bedside and she consents. She understands risks and benefits. Job ID: [id number]
[2019-03-09] MEDS: Propofol 1,000 MG/100 ML VIAL IV PRN ×3 (02:57→20:00)
[2019-03-09] MEDS: Labetalol HCl 100 MG/20 ML VIAL SLOW IVP PRN (05:18)
[2019-03-09] MEDS: Carbidopa/Levodopa 25-100 mg Tablet PO SCH ×3 (05:18→21:17)
[2019-03-09] MEDS: Sodium Chloride 0.9% 1,000 ML IV SCH ×3 (05:21→21:16)
[2019-03-09 07:01] LABS: Anion Gap 17 mmol/L (10-20); BUN (Urea Nitrogen) 12 mg/dL (8.4-25.7); Calc. Creatinine Clearance 98 mL/min (70-130); Calcium 8.2 mg/dL (7.8-10.44); Carbon Dioxide 19 mmol/L (23-31); Chloride 107 mmol/L (98-107); Estimated GFR-MDRD 77; Glucose 76 mg/dL (83-110); Potassium 4.3 mmol/L (3.5-5.1); Sodium 139 mmol/L (136-145)
[2019-03-09] MEDS: Acetaminophen 650 MG Suppository PR PRN ×2 (07:11→15:37)
[2019-03-09 07:56] LABS: Actual Bicarbonate (HCO3a) 20.3 mEq/L (22-28); Base Excess (BEa) -4.8 mEq/L (-2.0 to +3.0); CO2 Tension 37.7 mmHg (35.0-45.0); Calcium, Ionized 1.17 mmol/L (1.12-1.30); Carboxyhemoglobin (COHb) 0.6 gm% (0.0-3.0); Hemoglobin (Hb) 12.8 g/dL (14.0-18.0); O2 Tension (PaO2) 70.2 mmHg (> 70.0); Potassium - ABG Lab 3.24 mmol/L (3.70-5.30); pH, Arterial 7.35 (7.35-7.45)
[2019-03-09 08:00] LABS: Puncture Site RR
[2019-03-09 08:01] LABS: ALV-art Gradient 167.875 (0-20)
[2019-03-09 08:12] LABS: Hemoglobin 12.4 g/dL (14.0-18.0); Mean Corpuscular HGB CONC 34.4 g/dL (32.0-36.0); Mean Corpuscular Hemoglobin 32.4 pg (27.0-31.0); Mean Corpuscular Volume 94.2 fL (78.0-98.0); Mean Platelet Volume 7.6 fL (7.4-10.4); Platelet Count 233 thou/uL (130-400); RBC Distribution Width 12.1 % (11.5-14.5); Red Blood Cell (RBC) Count 3.82 mill/uL (4.70-6.10); White Blood Cell (WBC) Count 13.7 thou/uL (4.8-10.8)
--- NOTE | 2019-03-09 08:25 | RAD ---
RADIOGRAPH CHEST 1 VIEW: DATE: 03/09/2019 TIME: 4:53 AM HISTORY: 73-year-old male in respiratory failure COMPARISON: 03/08/2019 FINDINGS: There has been no interval change. IMPRESSION: 1. No interval change. 2. Endotracheal tube and esophagogastric tube. 3. Mild pulmonary densities at bilateral lung bases, nonspecific.
[2019-03-09 08:29] LABS: Band 37 % (5-11); Eosinophils 1 % (0-10); Lymphocytes 3 % (21-51); MDiff Complete? YES; Monocytes 13 % (0-10); Myelocyte 1 % (0-0); Neutrophil 44 % (42-75); RBC Morphology Normal; Reactive Lymphocytes 1 % (0-10)
[2019-03-09] MEDS: Brimonidine Tartrate 0.2% Ophth Soln 5 ml Bottle EA EYE SCH ×2 (08:58→21:16)
[2019-03-09] MEDS: Lisinopril 20 MG TAB PO SCH (08:59)
[2019-03-09] MEDS: Famotidine 20 MG TAB PO SCH ×2 (08:59→21:17)
[2019-03-09] MEDS: Bupropion 150 MG SR TAB PO SCH (09:00)
[2019-03-09] MEDS: Multivits W-Minerals Liquid 15mL UDCUP PER TUBE SCH (09:00)
[2019-03-09] MEDS: fentaNYL Citrate/PF 2,000 MCG in Sodium Chloride 0.9% 60 ML IV SCH (10:37)
--- NOTE | 2019-03-09 11:08 | OP ---
DATE OF PROCEDURE: 03/08/2019 PROCEDURE PERFORMED: Fiberoptic bronchoscopy with intubation. DESCRIPTION OF PROCEDURE: The patient had a bite block placed in his mouth emergently. The scope was passed into his upper airway. Copious secretions were encountered. These were suctioned clear. This took probably between 1 and 2 minutes to get all of his secretions clear. I was then able to visualize the vocal cords, were extremely edematous. There was a very small glottic opening posteriorly. Fortunately, I was able to pass the fiberoptic scope through this and advanced a 7.5 endotracheal tube into his airway and secured it. His tracheobronchial tree was suctioned quickly until it was free of secretions. There was no hypoxemia or change in his vital signs during this emergent procedure. I met with the after and answered all of her questions. Job ID: [id number]
[2019-03-09] MEDS: Lorazepam 2 MG/ML VIAL SLOW IVP PRN ×2 (12:58→15:04)
--- NOTE | 2019-03-09 17:40 | PDOC.HOSPP ---
- Subjective Encounter Date: 03/09/19 Encounter Time: 13:10 Subjective: Intubated, lightly sedated, no acute overnight events. Trach/PEG planned 03/10. Spoke with bedside nurse. - Objective Vital Signs & Weight: Vital Signs (12 hours) Temp Pulse Pulse Pulse Resp BP BP 03/09/19 16:00 16 03/09/19 15:46 108 H 153/75 H 03/09/19 14:00 12 03/09/19 13:51 94 101/62 03/09/19 12:00 99.2 F 12 03/09/19 10:11 88 03/09/19 10:00 12 03/09/19 08:59 98/70 03/09/19 08:58 90 91 122/64 03/09/19 08:00 14 03/09/19 07:53 105 H 03/09/19 07:18 03/09/19 07:00 101.6 F H 03/09/19 06:00 17 BP Pulse Ox Pulse Ox Pulse Ox 03/09/19 16:00 03/09/19 15:46 03/09/19 14:00 03/09/19 13:51 03/09/19 12:00 03/09/19 10:11 03/09/19 10:00 03/09/19 08:59 03/09/19 08:58 115/59 L 98 99 03/09/19 08:00 03/09/19 07:53 03/09/19 07:18 97 03/09/19 07:00 03/09/19 06:00 Weight Admit Weight 231 lb 7.766 oz Weight 226 lb 13.69 oz Most Recent Monitor Data Heart Rate from ECG 107 NIBP 138/78 NIBP BP-Mean 98 Respiration from ECG 5 SpO2 94 I&O: 03/08/19 03/09/19 03/10/19 06:59 06:59 06:59 Intake Total 3296.7 2332.7 180 Output Total 2175 1686 495 Balance 1121.7 646.7 -315 Result Diagrams: 03/09/19 07:45 03/09/19 06:35 Hospitalist ROS - Medication Medications: Active Medications Generic Name Dose Route Start Last Admin Trade Name Freq PRN Reason Stop Dose Admin Acetaminophen 650 mg 03/04/19 13:18 03/09/19 15:37 Tylenol NV 650 mg Q4H PRN Administration Headache/Fever/Mild Pain (1-3) Aspirin 300 mg 03/05/19 21:00 03/08/19 20:38 Aspirin NV 300 mg HS LOUIE Administration Brimonidine Tartrate 1 drop 03/05/19 21:00 03/09/19 08:58 Alphagan 0.2% Ophth Soln EA EYE 1 drop BID LOUIE Administration Bupropion HCl 150 mg 03/06/19 09:00 03/09/19 09:00 Wellbutrin Sr PO 150 mg DAILY LOUIE Administration Carbidopa/Levodopa 1 tab 03/08/19 14:00 03/09/19 13:44 Sinemet 25-100 PO 1 tab Q8HR LOUIE Administration Enoxaparin Sodium 30 mg 03/05/19 21:00 03/08/19 20:39 Lovenox SC 30 mg 2100 LOUIE Administration Famotidine 20 mg 03/07/19 21:00 03/09/19 08:59 Pepcid PO 20 mg BID LOUIE Administration Nicardipine HCl 25 mg/ Sodium 260 mls @ 0 mls/hr 03/04/19 13:18 03/05/19 09: 02 Chloride IVPB 260 mls INF PRN Administration SBP > 180 or DBP > 105 Protocol Titrate Fentanyl Citrate 2,000 mcg/ 100 mls @ 0 mls/hr 03/04/19 14:29 03/09/19 10:37 Sodium Chloride IV 04/03/19 14:29 100 mls INF LOUIE Administration Protocol Per Protocol Sodium Chloride 1,000 mls @ 75 mls/hr 03/04/19 19:15 03/09/19 07:11 Normal Saline 0.9% IV 1,000 mls .[id number] LOUIE Administration Dexmedetomidine HCl 400 mcg/ 100 mls @ 0 mls/hr 03/05/19 18:15 03/08/19 08:37 Sodium Chloride IVPB 100 mls INF LOUIE Administration Protocol Per Protocol Iron/Minerals/Multivitamins 15 ml 03/08/19 09:00 03/09/19 09:00 Certa Nickolas Liquid PER TUBE 15 ml DAILY LOUIE Administration Labetalol HCl 10 mg 03/04/19 13:18 03/09/19 05:18 Normodyne SLOW IVP 10 mg Q10MIN PRN Administration SBP > 180 or DBP > 105 Lisinopril 20 mg 03/06/19 09:00 03/09/19 08:59 Zestril PO 20 mg DAILY LOUIE Administration Lorazepam 2 mg 03/04/19 14:29 03/09/19 15:04 Ativan SLOW IVP 04/03/19 14:29 2 mg Q1H PRN Administration Breakthrough agitation Propofol 1,000 mg 03/04/19 14:29 03/09/19 10:46 Diprivan IV 04/03/19 14:29 1,000 mg INF PRN Administration TO ACHIEVE GOAL RASS Protocol Rosuvastatin Calcium 20 mg 03/04/19 21:00 03/08/19 20:38 Crestor PO 20 mg HS LOUIE Administration Scopolamine 1.5 mg 03/07/19 14:00 03/07/19 13:32 Transderm Scop TD 1.5 mg Q3D LOUIE Administration Sodium Chloride 10 ml 03/07/19 21:00 03/09/19 09:00 Flush - Normal Saline IVF 10 ml Q12HR LOUIE Administration - Exam General - other findings: Intubated, sedated Eye: anicteric sclera ENT: normocephalic atraumatic Neck: supple, no JVD Heart: RRR Respiratory - other findings: clear anteriorly and laterally Gastrointestinal: soft, non-tender Extremities: no edema Neurological: no new deficit Psychiatric - other findings: intubated/sedated Hosp A/P (1) Acute respiratory failure with hypoxia Code(s): J96.01 - ACUTE RESPIRATORY FAILURE WITH HYPOXIA Status: Acute (2) CVA (cerebral vascular accident) Code(s): I63.9 - CEREBRAL INFARCTION, UNSPECIFIED Status: Acute Qualifiers: Precerebral and cerebral artery: middle cerebral artery Laterality of affected vessel: right (3) Encephalopathy acute Code(s): G93.40 - ENCEPHALOPATHY, UNSPECIFIED Status: Acute (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
--- NOTE | 2019-03-09 20:38 | PRG ---
DATE OF SERVICE: 03/09/2019 SUBJECTIVE: Claude Mitchell sedated for ventilation. We are awaiting tracheostomy and PEG tomorrow. OBJECTIVE: VITAL SIGNS: Stable. Blood pressure this evening is 120/72, heart rate is 95. He has been stable throughout the day. Respiratory rates in the teens, oximetry is in the mid 90s. LUNGS: Clear. HEART: Regular rhythm. ABDOMEN: Soft. EXTREMITIES: Without clubbing, cyanosis, or edema. NEUROLOGIC: Not done today because he was sedated. DIAGNOSTIC STUDIES: Chest radiograph showed patchy lung base abnormalities consistent with atelectasis. LABORATORY DATA: White count 13.7, hemoglobin 12.4, platelets 233. Electrolytes are unremarkable. IMPRESSION: Respiratory failure associated with stroke, status post extubation and re-intubation with severe vocal cord edema and inability to clear his airway secretions prior to re-intubation. PLAN: For trach and PEG. Critical care time is 35 minutes. Job ID: [id number] MTDD
[2019-03-09] MEDS: Aspirin 300 MG Suppository PR SCH (21:16)
[2019-03-09] MEDS: Fish Oil 1,000 MG CAP PO SCH (21:17)
[2019-03-09] MEDS: Rosuvastatin 20 MG TAB PO SCH (21:17)
[2019-03-10] MEDS: Propofol 1,000 MG/100 ML VIAL IV PRN ×3 (02:57→20:22)
[2019-03-10] MEDS: Diltiazem HCl 125 MG, Admixture Fee 1 EACH in Sodium Chloride 0.9% 100 ML IVPB SCH ×3 (02:57→23:59)
[2019-03-10] MEDS: fentaNYL Citrate/PF 2,000 MCG in Sodium Chloride 0.9% 60 ML IV SCH (04:40)
[2019-03-10] MEDS: Carbidopa/Levodopa 25-100 mg Tablet PO SCH ×3 (05:00→21:03)
[2019-03-10 05:19] LABS: Band 18 % (5-11); Hypochromia SLIGHT = 6-15 cells (100X) (0-5/hpf); Lymphocytes 1 % (21-51); MDiff Complete? YES; Mean Corpuscular HGB CONC 33.7 g/dL (32.0-36.0); Mean Corpuscular Hemoglobin 32.6 pg (27.0-31.0); Mean Corpuscular Volume 96.9 fL (78.0-98.0); Mean Platelet Volume 8.4 fL (7.4-10.4); Metamyelocyte 3 % (0-0); Monocytes 18 % (0-10); Neutrophil 60 % (42-75); Platelet Count 240 thou/uL (130-400); Platelet Morphology Comment Appears Adequate; RBC Distribution Width 12.2 % (11.5-14.5); Red Blood Cell (RBC) Count 3.68 mill/uL (4.70-6.10); White Blood Cell (WBC) Count 22.3 thou/uL (4.8-10.8)
[2019-03-10 05:30] LABS: Anion Gap 15 mmol/L (10-20); BUN (Urea Nitrogen) 15 mg/dL (8.4-25.7); Calc. Creatinine Clearance 80 mL/min (70-130); Calcium 8.6 mg/dL (7.8-10.44); Carbon Dioxide 21 mmol/L (23-31); Chloride 106 mmol/L (98-107); Estimated GFR-MDRD 61; Glucose 77 mg/dL (83-110); Potassium 3.8 mmol/L (3.5-5.1); Sodium 138 mmol/L (136-145)
[2019-03-10 07:19] LABS: Base Excess (BEa) -3.9 mEq/L (-2.0 to +3.0); CO2 Tension 43.5 mmHg (35.0-45.0); Calcium, Ionized 1.16 mmol/L (1.12-1.30); Carboxyhemoglobin (COHb) 0.7 gm% (0.0-3.0); Hemoglobin (Hb) 12.6 g/dL (14.0-18.0); O2 Tension (PaO2) 72.6 mmHg (> 70.0); Potassium - ABG Lab 3.97 mmol/L (3.70-5.30); pH, Arterial 7.32 (7.35-7.45)
[2019-03-10 07:26] LABS: ALV-art Gradient 158.225 (0-20); Puncture Site RRA
[2019-03-10] MEDS: Lisinopril 20 MG TAB PO SCH (07:45)
[2019-03-10] MEDS: Brimonidine Tartrate 0.2% Ophth Soln 5 ml Bottle EA EYE SCH ×2 (07:45→19:47)
[2019-03-10] MEDS: Famotidine 20 MG TAB PO SCH ×2 (07:45→19:47)
[2019-03-10] MEDS: Bupropion 150 MG SR TAB PO SCH (07:45)
[2019-03-10] MEDS: Multivits W-Minerals Liquid 15mL UDCUP PER TUBE SCH (07:46)
--- NOTE | 2019-03-10 09:42 | RAD ---
PORTABLE CHEST 1 VIEW: DATE: 03/10/2019. TIME: 4:47 a.m. HISTORY: Respiratory failure. FINDINGS/IMPRESSION: No significant interval change is seen since the previous day's exam. POS: AMAURI
[2019-03-10] MEDS: Sodium Chloride 0.9% 1,000 ML IV SCH ×2 (09:57→23:22)
[2019-03-10] MEDS ORDERED: Fentanyl 100 MCG/2 ML VIAL ONE (11:02)
[2019-03-10] MEDS ORDERED: Lidocaine 2% PF 5 ML VIAL ONE ×2 (11:32→11:33)
[2019-03-10] MEDS ORDERED: Rocuronium Bromide 10 MG/ML (10ML VIAL) ONE (11:32)
[2019-03-10] MEDS ORDERED: Bupivacaine HCl 0.5%/Epinephrine 1:200,000/PF 30 ml Vial ONE (11:32)
--- NOTE | 2019-03-10 12:38 | PRG ---
DATE OF SERVICE: 03/10/2019 SUBJECTIVE: Mr. Palomo is sedated for ventilation. He is in no distress. OBJECTIVE: VITAL SIGNS: Heart rate is 99, respiratory rate is 18, blood pressure 118/60. LUNGS: Remarkable for coarse, equal breath sounds. HEART: Regular rhythm. S1 and S2 are normal. ABDOMEN: Soft without guarding. EXTREMITIES: Without edema. IMPRESSION: Respiratory failure status post emergent re-intubation for vocal cord edema. PLAN: 1. We will continue supportive care. He will have a tracheostomy and a PEG today. 2. Chest radiograph is reviewed and is remarkable for some mild superior segment right lower lobe haziness. The x-ray is not changed. 3. He has had a week of IV antibiotics. His antibiotics have been discontinued and were completed. Job ID: [id number]
[2019-03-10] MEDS: Scopolamine 1.5 mg/72 hour Patch TD SCH (13:29)
--- NOTE | 2019-03-10 15:01 | PDOC.HOSPP ---
- Subjective non-verbal Subjective: Intubated. Non verbal. - Objective Vital Signs & Weight: Vital Signs (12 hours) Temp Pulse Resp BP Pulse Ox 03/10/19 14:00 16 03/10/19 13:36 101 H 03/10/19 10:44 99 03/10/19 10:00 12 03/10/19 08:00 20 03/10/19 07:45 105/63 03/10/19 07:15 95 03/10/19 07:05 102 H 03/10/19 07:00 100.3 F H 03/10/19 06:00 12 03/10/19 04:00 100.6 F H 14 Weight Admit Weight 231 lb 7.766 oz Weight 224 lb 13.944 oz Most Recent Monitor Data Heart Rate from ECG 107 NIBP 102/55 NIBP BP-Mean 70 Respiration from ECG 15 SpO2 93 I&O: 03/09/19 03/10/19 03/11/19 06:59 06:59 06:59 Intake Total 2332.7 1635 0 Output Total 1686 925 180 Balance 646.7 710 -180 Result Diagrams: 03/10/19 04:10 03/10/19 04:10 Radiology Reviewed by me: Yes (Chest xray) Hospitalist ROS - Review of Systems ROS unobtainable: due to endotracheal tube - Medication Medications: Active Medications Generic Name Dose Route Start Last Admin Trade Name Freq PRN Reason Stop Dose Admin Acetaminophen 650 mg 03/04/19 13:18 03/09/19 15:37 Tylenol [place] 650 mg Q4H PRN Administration Headache/Fever/Mild Pain (1-3) Aspirin 300 mg 03/05/19 21:00 03/09/19 21:16 Aspirin [place] 300 mg HS LOUIE Administration Brimonidine Tartrate 1 drop 03/05/19 21:00 03/10/19 07:45 Alphagan 0.2% Ophth Soln EA EYE 1 drop BID LOUIE Administration Bupropion HCl 150 mg 03/06/19 09:00 03/10/19 07:45 Wellbutrin Sr PO 150 mg DAILY LOUIE Administration Carbidopa/Levodopa 1 tab 03/08/19 14:00 03/10/19 13:29 Sinemet 25-100 PO 1 tab Q8HR LOUIE Administration Famotidine 20 mg 03/07/19 21:00 03/10/19 07:45 Pepcid PO 20 mg BID LOUIE Administration Fish Oil 1,000 mg 03/09/19 21:00 03/09/19 21:17 Fish Oil PO 1,000 mg HS LOUIE Administration Nicardipine HCl 25 mg/ Sodium 260 mls @ 0 mls/hr 03/04/19 13:18 03/05/19 09: 02 Chloride IVPB 260 mls INF PRN Administration SBP > 180 or DBP > 105 Protocol Titrate Fentanyl Citrate 2,000 mcg/ 100 mls @ 0 mls/hr 03/04/19 14:29 03/10/19 04:40 Sodium Chloride IV 04/03/19 14:29 100 mls INF LOUIE Administration Protocol Per Protocol Sodium Chloride 1,000 mls @ 75 mls/hr 03/04/19 19:15 03/10/19 09:57 Normal Saline 0.9% IV 1,000 mls .[id number] LOUIE Administration Dexmedetomidine HCl 400 mcg/ 100 mls @ 0 mls/hr 03/05/19 18:15 03/08/19 08:37 Sodium Chloride IVPB 100 mls INF LOUIE Administration Protocol Per Protocol Diltiazem HCl 125 mg/ 125 mls @ 5 mls/hr 03/10/19 02:45 03/10/19 13:53 Miscellaneous Medication 1 IVPB 125 mls each/ Sodium Chloride INF LOUIE Administration Protocol Iron/Minerals/Multivitamins 15 ml 03/08/19 09:00 03/10/19 07:46 Certa Nickolas Liquid PER TUBE 15 ml DAILY LOUIE Administration Labetalol HCl 10 mg 03/04/19 13:18 03/09/19 05:18 Normodyne SLOW IVP 10 mg Q10MIN PRN Administration SBP > 180 or DBP > 105 Lisinopril 20 mg 03/06/19 09:00 03/10/19 07:45 Zestril PO 20 mg DAILY LOUIE Administration Lorazepam 2 mg 03/04/19 14:29 03/09/19 15:04 Ativan SLOW IVP 04/03/19 14:29 2 mg Q1H PRN Administration Breakthrough agitation Propofol 1,000 mg 03/04/19 14:29 03/10/19 13:10 Diprivan IV 04/03/19 14:29 1,000 mg INF PRN Administration TO ACHIEVE GOAL RASS Protocol Rosuvastatin Calcium 20 mg 03/04/19 21:00 03/09/19 21:17 Crestor PO 20 mg HS LOUIE Administration Scopolamine 1.5 mg 03/07/19 14:00 03/10/19 13:29 Transderm Scop TD 1.5 mg Q3D LOUIE Administration Sodium Chloride 10 ml 03/07/19 21:00 03/10/19 07:48 Flush - Normal Saline IVF 10 ml Q12HR LOUIE Administration - Exam General Appearance: ill appearing Eye: PERRL, anicteric sclera ENT: no oropharyngeal lesions, dry oral mucosa Neck: supple, symmetric Heart: no murmur, no gallops, no rubs Heart - other findings: S1 and S2 present Respiratory: no rales, no ronchi, normal chest expansion, wheezes Gastrointestinal: soft, non-tender, non-distended, no guarding, no rigidity Extremities: no cyanosis, no clubbing Skin: no lesions, no rashes Neurological - other findings: Limited secondary clinical condition Psychiatric - other findings: Limited secondary clinical condition Hosp A/P (1) Acute respiratory failure with hypoxia Code(s): J96.01 - ACUTE RESPIRATORY FAILURE WITH HYPOXIA Status: Acute (2) CVA (cerebral vascular accident) Code(s): I63.9 - CEREBRAL INFARCTION, UNSPECIFIED Status: Acute Qualifiers: Precerebral and cerebral artery: middle cerebral artery Laterality of affected vessel: right (3) Encephalopathy acute Code(s): G93.40 - ENCEPHALOPATHY, UNSPECIFIED Status: Acute (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 - S/P ADMN TPA IN DIFF FAC W/N LAST 24 HR BEF ADM TO CRNT FAC Status: Acute (5) Dyslipidemia Code(s): E78.5 - HYPERLIPIDEMIA, UNSPECIFIED Status: Chronic (6) Glaucoma Code(s): H40.9 - UNSPECIFIED GLAUCOMA Status: Chronic (7) Hypertension Code(s): I10 - ESSENTIAL (PRIMARY) HYPERTENSION Status: Chronic - Plan Plan: Pulm/ CC consult, recommendations appreciated Neurology consult, recommendations appreciated Surgery consult, recommendations appreciated OR for trach and peg Will likely need LTAC placement Statin ASA MRI brain noted Echo noted US carotid noted BP control Replace electrolytes as needed GI and DVT PPX
[2019-03-10] MEDS: Aspirin 300 MG Suppository PR SCH (19:46)
[2019-03-10] MEDS: Fish Oil 1,000 MG CAP PO SCH (19:47)
[2019-03-10] MEDS: Rosuvastatin 20 MG TAB PO SCH (19:47)
[2019-03-11] MEDS: fentaNYL Citrate/PF 2,000 MCG in Sodium Chloride 0.9% 60 ML IV SCH (02:10)
[2019-03-11] MEDS: Propofol 1,000 MG/100 ML VIAL IV PRN (02:20)
[2019-03-11] MEDS ORDERED: niCARdipine 25 MG in Sodium Chloride 0.9% 250 ML 240 ML IVPB PRN (02:45)
[2019-03-11] MEDS: Carbidopa/Levodopa 25-100 mg Tablet PO SCH ×3 (05:10→21:43)
[2019-03-11 05:39] LABS: Anion Gap 13 mmol/L (10-20); BUN (Urea Nitrogen) 26 mg/dL (8.4-25.7); Band 33 % (5-11); Calc. Creatinine Clearance 48 mL/min (70-130); Calcium 8.2 mg/dL (7.8-10.44); Carbon Dioxide 21 mmol/L (23-31); Chloride 107 mmol/L (98-107); Estimated GFR-MDRD 33; Glucose 107 mg/dL (83-110); Hemoglobin 11.7 g/dL (14.0-18.0); Lymphocytes 2 % (21-51); MDiff Complete? YES; Mean Corpuscular Hemoglobin 32.1 pg (27.0-31.0); Mean Corpuscular Volume 97.2 fL (78.0-98.0); Mean Platelet Volume 8.1 fL (7.4-10.4); Metamyelocyte 4 % (0-0); Monocytes 4 % (0-10); Myelocyte 1 % (0-0); Neutrophil 56 % (42-75); Platelet Count 236 thou/uL (130-400); Platelet Morphology Comment Appears Adequate; Potassium 4.3 mmol/L (3.5-5.1); RBC Distribution Width 12.4 % (11.5-14.5); RBC Morphology Normal; Red Blood Cell (RBC) Count 3.65 mill/uL (4.70-6.10); Sodium 137 mmol/L (136-145); White Blood Cell (WBC) Count 27.3 thou/uL (4.8-10.8)
--- NOTE | 2019-03-11 07:38 | RAD ---
EXAM: Portable chest PROVIDED CLINICAL HISTORY: Respiratory insufficiency COMPARISON: 03/10/2019 FINDINGS: Interval extubation and removal of enteric catheter. Interval placement of tracheostomy appliance. Ad ditional significant interval change with respect to the prior examination is not apparent. IMPRESSION: As above.
--- NOTE | 2019-03-11 07:54 | PRG ---
DATE OF SERVICE: 03/11/2019 TIME SPENT: 35 minutes of critical care time. SUBJECTIVE: The patient underwent tracheostomy and PEG tube placement yesterday and it went well. He is currently sedated on propofol, so he is difficult for me to arouse this morning. OBJECTIVE: VITAL SIGNS: On exam, his temperature is 98.8, pulse 74, and blood pressure 100/58. He is currently on propofol and Cardizem drips. HEENT: Unremarkable. NECK: Trach in good position. LUNGS: Clear anteriorly. CARDIOVASCULAR: S1 and S2. Irregularly irregular. ABDOMEN: Soft, obese, and nontender. PEG tube noted. EXTREMITIES: No clubbing, cyanosis, or edema. LABORATORY DATA: White blood cell count 27.3, hemoglobin 11.7, hematocrit 35.4, platelet count 236, with 56% neutrophils, 33% bands. Sodium 137, potassium 4.3, chloride 107, CO2 of 21, BUN 26, creatinine 1.9, and glucose 107. ASSESSMENT: 1. Respiratory failure, requiring mechanical ventilation. 2. Status post tracheostomy placement for vocal cord edema/failed extubation. 3. Elevated white count. 4. Atrial fibrillation. 5. Stroke. PLAN: 1. I think he is probably stable enough to go on to a trach collar today. 2. We need to minimize sedation as much as possible. 3. Continue enteral tube feeds. Job ID: [id number]
[2019-03-11] MEDS: Bupropion 150 MG SR TAB PO SCH (09:46)
[2019-03-11] MEDS: Lisinopril 20 MG TAB PO SCH (09:46)
[2019-03-11] MEDS: Multivits W-Minerals Liquid 15mL UDCUP PER TUBE SCH (09:47)
[2019-03-11] MEDS: Famotidine 20 MG TAB PO SCH (09:47)
[2019-03-11] MEDS: Brimonidine Tartrate 0.2% Ophth Soln 5 ml Bottle EA EYE SCH ×2 (09:48→21:44)
[2019-03-11] MEDS ORDERED: Enoxaparin Sodium 100 MG/ML SYRINGE SC SCH ×4 (11:32→21:00)
[2019-03-11] MEDS: Piperacillin/Tazobactam 3.375 GM in Sodium Chloride 0.9% 100 ML IVPB SCH ×3 (12:41→23:45)
[2019-03-11] MEDS: Sodium Chloride 0.9% 1,000 ML IV SCH ×2 (12:42→16:19)
[2019-03-11] MEDS: Vancomycin HCl 1 GM in Premix Bag 1 BAG IVPB SCH (13:49)
--- NOTE | 2019-03-11 13:55 | PDOC.HOSPP ---
- Subjective non-verbal Subjective: Seen and examined. at bedside, many questions asked, all answered in detail. Patient non verbal. Does not follow commands. Eyes open, does not consistently track across the room. Seems uncomfortable on sedation vacation this AM. - Objective Vital Signs & Weight: Vital Signs (12 hours) Temp Pulse Resp BP Pulse Ox 03/11/19 12:00 99.8 F H 03/11/19 10:25 120 H 147/95 H 03/11/19 09:46 151/85 H 03/11/19 08:00 99.2 F 13 97 03/11/19 06:32 94 100/58 L 03/11/19 06:00 12 03/11/19 04:00 16 03/11/19 03:00 98.8 F 03/11/19 02:00 16 Weight Admit Weight 231 lb 7.766 oz Weight 228 lb 6.382 oz Most Recent Monitor Data Heart Rate from ECG 144 NIBP 145/75 NIBP BP-Mean 98 Respiration from ECG 18 SpO2 95 I&O: 03/10/19 03/11/19 03/12/19 06:59 06:59 06:59 Intake Total 1635 2657.4 Output Total 925 665 225 Balance 710 1992.4 -225 Result Diagrams: 03/11/19 05:05 03/11/19 05:05 Radiology Reviewed by me: Yes (Chest xray) Hospitalist ROS - Review of Systems ROS unobtainable: due to endotracheal tube - Medication Medications: Active Medications Generic Name Dose Route Start Last Admin Trade Name Freq PRN Reason Stop Dose Admin Acetaminophen 650 mg 03/04/19 13:18 03/09/19 15:37 Tylenol ID 650 mg Q4H PRN Administration Headache/Fever/Mild Pain (1-3) Aspirin 300 mg 03/05/19 21:00 03/10/19 19:46 Aspirin ID 300 mg HS LOUIE Administration Brimonidine Tartrate 1 drop 03/05/19 21:00 03/11/19 09:48 Alphagan 0.2% Ophth Soln EA EYE 1 drop BID LOUIE Administration Bupropion HCl 150 mg 03/06/19 09:00 03/11/19 09:46 Wellbutrin Sr PO 150 mg DAILY LOUIE Administration Carbidopa/Levodopa 1 tab 03/08/19 14:00 03/11/19 13:49 Sinemet 25-100 PO 1 tab Q8HR LOUIE Administration Fish Oil 1,000 mg 03/09/19 21:00 03/10/19 19:47 Fish Oil PO 1,000 mg HS LOUIE Administration Sodium Chloride 1,000 mls @ 75 mls/hr 03/04/19 19:15 03/11/19 12:42 Normal Saline 0.9% IV 1,000 mls .[id number] LOUIE Administration Diltiazem HCl 125 mg/ 125 mls @ 5 mls/hr 03/10/19 02:45 03/10/19 23:59 Miscellaneous Medication 1 IVPB 125 mls each/ Sodium Chloride INF LOUIE Administration Protocol Piperacillin Sod/Tazobactam 100 mls @ 200 mls/hr 03/11/19 12:00 03/11/19 12: 41 Sod 3.375 gm/ Sodium Chloride IVPB 100 mls Q6HR LOUIE Administration Vancomycin HCl 1 gm/ Device 200 mls @ 200 mls/hr 03/11/19 14:00 03/11/19 13: 49 IVPB 200 mls 0200,1400 LOUIE Administration Iron/Minerals/Multivitamins 15 ml 03/08/19 09:00 03/11/19 09:47 Certa Nickolas Liquid PER TUBE 15 ml DAILY LOUIE Administration Labetalol HCl 10 mg 03/04/19 13:18 03/09/19 05:18 Normodyne SLOW IVP 10 mg Q10MIN PRN Administration SBP > 180 or DBP > 105 Lisinopril 20 mg 03/06/19 09:00 03/11/19 09:46 Zestril PO 20 mg DAILY LOUIE Administration Lorazepam 2 mg 03/04/19 14:29 03/09/19 15:04 Ativan SLOW IVP 04/03/19 14:29 2 mg Q1H PRN Administration Breakthrough agitation Rosuvastatin Calcium 20 mg 03/04/19 21:00 03/10/19 19:47 Crestor PO 20 mg HS LOUIE Administration Scopolamine 1.5 mg 03/07/19 14:00 03/10/19 13:29 Transderm Scop TD 1.5 mg Q3D LOUIE Administration Sodium Chloride 10 ml 03/07/19 21:00 03/11/19 09:48 Flush - Normal Saline IVF 10 ml Q12HR LOUIE Administration - Exam General Appearance: NAD Eye: PERRL Eye - other findings: EOMI ENT: no oropharyngeal lesions, dry oral mucosa Neck: supple, symmetric, no lymphadenopathy Heart: no murmur, no gallops, irregular Heart - other findings: Rapid irregular rate Respiratory: no rales, normal chest expansion, rhonchi, tachypneic, wheezes Gastrointestinal: soft, non-tender, normal bowel sounds, no guarding, no rigidity Gastrointestinal - other findings: obese Extremities: 1+ LE edema Skin: no lesions, no rashes Neurological: no new deficit, hemiplegia Neurological - other findings: Eyes open, does not track, follows no commands. 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(s): Z92.82 - S/P ADMN TPA IN DIFF FAC W/N LAST 24 HR BEF ADM TO CRNT FAC Status: Acute (5) Dyslipidemia Code(s): E78.5 - HYPERLIPIDEMIA, UNSPECIFIED Status: Chronic (6) Glaucoma Code(s): H40.9 - UNSPECIFIED GLAUCOMA Status: Chronic (7) Hypertension Code(s): I10 - ESSENTIAL (PRIMARY) HYPERTENSION Status: Chronic - Plan Plan: Pulm/ CC consult, recommendations appreciated Cardiology consult, recommendations appreciated Nephrology consult, recommendations appreciated Neurology consult, recommendations appreciated Surgery consult, recommendations appreciated WBC trending up, no fever, though appears toxic Start broad spectrum ABX Blood cultures negative on 03/08 Culture secretions draining from around trach site, per RN they are thick and foul smelling Diffuse wheezing and rhonchi, CXR without focal PNA Afib with RVR Restart IV anticoagulation with lovenox Start Metoprolol for rate control Renal function worse Renally dose all medications, per pharmacy S/p trach and peg on 03/10 Will likely need LTAC placement when medically optimized Statin ASA MRI brain noted Echo noted US carotid noted BP control Replace electrolytes as needed GI and DVT PPX
[2019-03-11] MEDS: Diltiazem HCl 125 MG, Admixture Fee 1 EACH in Sodium Chloride 0.9% 100 ML IVPB SCH (15:13)
[2019-03-11] MEDS: Bisacodyl 10 MG SUPP PR PRN ×2 (15:14→15:53)
[2019-03-11 16:03] LABS: Bilirubin Negative (Negative); Blood, Urine Moderate (Negative); Glucose, Urine (Dipstick) Negative (Negative); Leukocyte Small (Negative); Nitrite Positive (Negative); Protein, Urine (Dipstick) > or equal to 300 mg/dL (Neg-Trace)
[2019-03-11 16:05] LABS: Clarity Cloudy (Clear)
[2019-03-11 16:13] LABS: WBC/HPF Greater Than 50 HPF (0-3)
[2019-03-11 16:14] LABS: Bacteria/HPF 2+ HPF (None Seen); Squamous Epithelial 0-3 HPF (0-3)
[2019-03-11 16:19] LABS: Creatinine, Urine 124.89 mg/dL (63-166)
[2019-03-11] MEDS: Acetaminophen 650 MG Suppository PR PRN (16:48)
[2019-03-11] MEDS ORDERED: Propofol 1,000 MG/100 ML VIAL IV ONE (17:43)
[2019-03-11] MEDS ORDERED: fentaNYL Citrate/PF 2,000 MCG in Sodium Chloride 0.9% 60 ML IV SCH (19:01)
[2019-03-11] MEDS ORDERED: Propofol 1,000 MG/100 ML VIAL IV PRN (19:01)
[2019-03-11] MEDS ORDERED: Fentanyl BOLUS 250 ML IVPB PRN (19:01)
[2019-03-11] MEDS ORDERED: Propofol BOLUS 1,000 MG/100 ML VIAL IV PRN (19:01)
--- NOTE | 2019-03-11 20:53 | CON ---
DATE OF CONSULTATION: 03/11/2019 HISTORY OF PRESENT ILLNESS: Mr. Mitchell is a 73-year-old white male, who was admitted for CVA. He did receive tPA with this admission. He was found to have multifocal CVA. For that reason, he was given antithrombotic therapy. During this hospitalization, the patient was not weaned off from his respirator. For that reason, a tracheostomy has been placed. We are now being consulted for the acute kidney injury. Creatinine this morning was noted at 1.99 and previously this was 1.17. Review of systems not obtainable since the patient is on ventilator support. He is minimally arousable at the present time. The interview was done with the patient's . REVIEW OF SYSTEMS: Not obtainable since the patient could not follow commands. MEDICATIONS: Currently on; 1. Aspirin 300 mg tablet daily. 2. Alphagan eye drop as directed. 3. Bupropion SR 150 mg once a day. 4. Carbidopa/levodopa one tablet q.8 hours. 5. Diltiazem 125 mg IV. 6. Lovenox 80 mg subcu daily. 7. Pepcid 20 mg tablet b.i.d. 8. Fentanyl bolus as needed. 9. Fish oil 1000 mg at bedtime. 10. Lisinopril 20 mg tablet once a day. 11. Morphine 2 mg IV q.4 hours p.r.n. 12. Cardene drip. 13. Zosyn 3.375 g IV q.6. 14. Crestor 20 mg tablet at bedtime. 15. Normal saline 75 mL/h. 16. Vancomycin 1 g q.12. PAST MEDICAL HISTORY: 1. Recent diagnosis of multifocal CVA. 2. The patient has history of coronary artery disease, hyperlipidemia, hypertension, and Parkinson's disease. 3. History of glaucoma. 4. History of decreased hearing. PAST SURGICAL HISTORY: Recently status post tracheostomy, status post colonoscopy, status post cardiac cath, status post CABG, status post inguinal hernia repair, status post umbilical hernia repair, and status post cataract surgery. SOCIAL HISTORY: The patient , lives in [place], 3 children and 3 step children. No smoking. No alcohol. 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 No blood transfusion. Education, high school with 1 year of college. FAMILY HISTORY: No family history of ESRD. ALLERGIES: TETANUS SHOT. TRAUMA: None. IMMUNIZATION: Up-to-date. HOSPITALIZATIONS: Please see past medical history. PHYSICAL EXAMINATION: VITAL SIGNS: Blood pressure is 145/75, heart rate is 123 to 144, respiratory rate 18, pulse ox 95%, and temperature 99.8. GENERAL: The patient is sedated on ventilator support. SKIN: Adequate turgor. HEENT: Pinkish conjunctivae. Anicteric sclerae. No neck mass. No carotid bruits. No JVD. Positive for tracheostomy. LUNGS: Decreased breath sounds/harsh breath sounds. HEART: Tachycardic. No murmur. No gallops. No rubs. ABDOMEN: Globular, soft, and nontender. No masses. EXTREMITIES: Trace edema. NEUROLOGIC: Decreased mentation. No tremors. No asterixis. LABORATORY DATA: Laboratories of March 11, 2019, sodium 143, potassium 4.3, chloride 107, carbon dioxide 21, BUN 26, creatinine 1.99, GFR 33 mL/minute, and calcium 8.2. March 10, 2019, creatinine 1.17. March 09, 2019, creatinine 0.96. Urinalysis of March 08, 2019, no pigmented granular casts. Specific gravity is 1.022. White count 27.3 and hemoglobin 11.7. ASSESSMENT AND PLAN: 1. Acute kidney injury-consider hemodynamically-mediated dysfunction. Urine a few days ago was already very concentrated. Agree with IV hydration, currently at 75 mL/hour. My bias is to increase the IV fluid to 100 mL/h. In addition, we will hold off lisinopril temporarily. We will review urinalysis and urine chemistries. We will hold off the renal ultrasound and only if there is no improvement, we will proceed with renal ultrasound. Will also hold of Lisinopril temporarily. 2. Status post cerebrovascular accident with acute respiratory failure-recently the patient is placed on respirator and tracheostomy has been done. Overall, prognosis remains guarded. Agree with current management. No indication for any dialytic intervention. Job ID: [id number] [facility]
[2019-03-11] MEDS ORDERED: Vancomycin HCl 1 GM in Premix Bag 1 BAG IVPB SCH (21:00)
[2019-03-11] MEDS: Rosuvastatin 20 MG TAB PO SCH (21:43)
[2019-03-11] MEDS: Aspirin 300 MG Suppository PR SCH (21:43)
[2019-03-11] MEDS: Fish Oil 1,000 MG CAP PO SCH (21:43)
[2019-03-11] MEDS: Metoprolol Tartrate 50 MG TAB PER TUBE SCH (21:55)
[2019-03-12] MEDS: Sodium Chloride 0.9% 1,000 ML IV SCH ×3 (02:28→19:39)
[2019-03-12] MEDS: Diltiazem HCl 125 MG, Admixture Fee 1 EACH in Sodium Chloride 0.9% 100 ML IVPB SCH ×2 (02:28→22:47)
[2019-03-12] MEDS: Vancomycin HCl 1 GM in Premix Bag 1 BAG IVPB SCH ×2 (02:28→14:36)
[2019-03-12] MEDS: Piperacillin/Tazobactam 3.375 GM in Sodium Chloride 0.9% 100 ML IVPB SCH ×4 (06:12→23:01)
[2019-03-12] MEDS: Carbidopa/Levodopa 25-100 mg Tablet PO SCH ×3 (06:12→21:14)
[2019-03-12 06:30] LABS: Band 25 % (5-11); Eosinophils 1 % (0-10); Hemoglobin 11.5 g/dL (14.0-18.0); Hypochromia SLIGHT = 6-15 cells (100X) (0-5/hpf); Lymphocytes 4 % (21-51); MDiff Complete? YES; Mean Corpuscular HGB CONC 32.2 g/dL (32.0-36.0); Mean Corpuscular Hemoglobin 31.9 pg (27.0-31.0); Mean Corpuscular Volume 99.3 fL (78.0-98.0); Mean Platelet Volume 7.9 fL (7.4-10.4); Monocytes 3 % (0-10); Neutrophil 67 % (42-75); Platelet Count 271 thou/uL (130-400); Platelet Morphology Comment Appears Adequate; RBC Distribution Width 12.8 % (11.5-14.5); Red Blood Cell (RBC) Count 3.61 mill/uL (4.70-6.10); White Blood Cell (WBC) Count 33.5 thou/uL (4.8-10.8)
[2019-03-12 06:39] LABS: Anion Gap 13 mmol/L (10-20); BUN (Urea Nitrogen) 30 mg/dL (8.4-25.7); Calc. Creatinine Clearance 64 mL/min (70-130); Calcium 8.1 mg/dL (7.8-10.44); Carbon Dioxide 20 mmol/L (23-31); Chloride 109 mmol/L (98-107); Estimated GFR-MDRD 45; Glucose 108 mg/dL (83-110); Potassium 3.8 mmol/L (3.5-5.1); Sodium 138 mmol/L (136-145)
[2019-03-12] MEDS ORDERED: Enoxaparin Sodium 100 MG/ML SYRINGE SC SCH (09:00)
[2019-03-12] MEDS ORDERED: Famotidine 20 MG TAB PO SCH (09:00)
[2019-03-12] MEDS: Amiodarone 200 MG TAB PO SCH ×3 (09:25→19:22)
[2019-03-12] MEDS: Brimonidine Tartrate 0.2% Ophth Soln 5 ml Bottle EA EYE SCH ×2 (09:25→19:22)
[2019-03-12] MEDS: Bupropion 150 MG SR TAB PO SCH (09:26)
[2019-03-12] MEDS: Metoprolol Tartrate 50 MG TAB PER TUBE SCH ×2 (09:27→19:22)
[2019-03-12] MEDS: Multivits W-Minerals Liquid 15mL UDCUP PER TUBE SCH (09:28)
--- NOTE | 2019-03-12 09:51 | PRG ---
DATE OF SERVICE: 03/12/2019 SUBJECTIVE: The patient has intermittent problems with atrial fibrillation with rapid ventricular response. His amiodarone was increased. His Cardizem is also being increased today, and his family is at the bedside. They are concerned about his degree of edema and his lack of neurologic improvement. It is also noted that the patient was started on broad-spectrum antibiotics yesterday for elevated white blood cell count. OBJECTIVE: VITAL SIGNS: On exam, his temperature is 98.5 with a T-max of 101.2 yesterday afternoon, pulse 121, blood pressure 119/80, O2 saturation 100% on the vent, 96% on trach collar. GENERAL: He will open his eyes, will not follow commands. HEENT: Otherwise, unremarkable. NECK: He has foul-smelling drainage from his trach. CARDIOVASCULAR: S1 and S2. Irregularly irregular and tachycardic. ABDOMEN: Soft, nontender. LUNGS: Coarse rhonchi. EXTREMITIES: Edematous throughout. LABORATORY DATA: White blood cell count 33.5, hematocrit 35.8, and platelet count 271. Sodium 138, potassium 3.8, chloride 109, CO2 of 20, BUN 30, creatinine 1.5, glucose 108. ASSESSMENT: 1. Atrial fibrillation with rapid ventricular response. 2. Acute respiratory failure requiring mechanical ventilation. 3. Possible nosocomial infection given fever and elevated white blood cell count. 4. Renal dysfunction. 5. Stroke. PLAN: 1. Continue trach collar trials. 2. Atrial fibrillation, medications adjusted. Continue broad-spectrum IV antibiotics. 3. The patient is currently anticoagulated for his atrial fibrillation with an appropriate renally adjusted dose of enoxaparin. 4. Discussed in detail with family at bedside. Job ID: [id number]
--- NOTE | 2019-03-12 10:00 | CON ---
DATE OF CONSULTATION: 03/12/2019 REASON FOR CONSULTATION: Atrial fibrillation, recent extensive stroke. HISTORY OF PRESENT ILLNESS: Mr. Mitchell is an unfortunate 73-year-old gentleman, who was admitted to the hospital with extensive multifocal stroke on 03/04/2019. The patient was initially in sinus rhythm. The patient has developed atrial fibrillation during this hospitalization. The patient as far as I can tell from the chart did not have a previous cardiac history. It looks like he has been in atrial fibrillation since 03/10/2019. The patient is on intravenous diltiazem and oral metoprolol. The patient received tPA. On admission here, he has been anticoagulated since admission. The patient, as outlined in the chart, has had an extensive stroke. PAST MEDICAL HISTORY: Parkinson disease and hypertension. MEDICATIONS: He is on enoxaparin full dose up until recently. The dose was recently reduced due to renal insufficiency. FAMILY HISTORY: Unknown. SOCIAL HISTORY: Unknown. REVIEW OF SYSTEMS: Not obtainable. PHYSICAL EXAMINATION: GENERAL: On examination, this is an elderly gentleman, intubated on the ventilator. HEENT: Eyes are open. Sclerae are nonicteric. Mouth, mucous membranes appear moist. NECK: No bruits. LUNGS: Some rhonchi bilaterally. No wheezing. CARDIAC: Irregularly irregular and tachycardic. ABDOMEN: Soft and nontender. No hepatosplenomegaly. EXTREMITIES: Warm, dry. No clubbing or cyanosis. There is moderate edema. He does have dorsalis pedis and posterior tibial pulses palpable. PERTINENT LABORATORY DATA: His creatinine is increased at 1.99 yesterday, down to 1.52 today. GFR went from 33 to 45. IMAGING DATA: EKG does reveal atrial fibrillation with a rapid ventricular response despite intravenous diltiazem and NG metoprolol. The heart rate is approximately 120 beats per minute, but a lot of variation due to the fibrillation. Sometimes the heart rates in the 130s. ASSESSMENT: 1. Recent stroke, likely embolic and multifocal. 2. Respiratory failure secondary to stroke. 3. Atrial fibrillation, very difficult to control, not well controlled despite beta-blockers and diltiazem. 4. Renal insufficiency, stage 3, improving. PLAN: I think it is reasonable to add intravenous amiodarone to see if we can maintain sinus rhythm as his rate is not well controlled despite metoprolol and diltiazem. We will initially try amiodarone in the NG tube if that is the option, and if necessary, we will change to intravenous amiodarone. Job ID: [id number]
[2019-03-12] MEDS: Guaifenesin DM 100-10/5 ML UDCUP PER TUBE SCH ×3 (10:03→21:14)
--- NOTE | 2019-03-12 10:55 | PRG ---
DATE OF SERVICE: 03/12/2019 SUBJECTIVE: Mr. Mitchell is a 73-year-old white male, who was admitted for an embolic CVA, status post tPA, went to acute respiratory failure and currently on ventilator support. He had a tracheostomy placed. Please note, we were consulted due to the acute kidney injury. We suspect he may simply have a hemodynamically-mediated renal dysfunction. He was given empiric volume repletion. In addition, we have held off the lisinopril. No acute events noted last night. OBJECTIVE: VITAL SIGNS: Blood pressure is 124/71, heart rate is 121, respiratory rate 12, and pulse ox 100%. GENERAL: The patient is awake and follows simple commands, on ventilator support. SKIN: Adequate turgor. HEENT: He has pinkish conjunctivae. Anicteric sclerae. NECK: No neck mass. No carotid bruits. No JVD. Positive for tracheostomy. LUNGS: Decreased harsh breath sounds. HEART: Tachycardic. No murmur, no gallops, no rubs. ABDOMEN: Globular, soft, nontender. No masses. EXTREMITIES: No edema. No deformities. MEDICATIONS: Medications of March 12, 2019, reviewed. LABORATORY DATA: Laboratories of March 12, 2019; white count 33.5, hemoglobin 11.5. Sodium 138, potassium 2.8, chloride 109, carbon dioxide 20, BUN 30, creatinine 1.52, glucose 108, calcium 8.1. Urinalysis shows specific gravity of 1.025, wbc greater than 50, rbc 11 to 20, protein greater than 300. ASSESSMENT AND PLAN: 1. Acute kidney injury-I suspect a hemodynamically-mediated renal dysfunction. Urine sediment did not show any evidence of acute tubular necrosis. Urine is still very concentrated. Agree with current management. Continue to hold off LEDY inhibitors. Continue normal saline at 100 mL an hour. 2. Atrial fibrillation. Cardiology is following. IV amiodarone has been started. 3. Status post cerebrovascular [id number] anticoagulation. Urology is following. 4. Acute respiratory failure-unable to wean currently. Has a tracheostomy and on ventilator support. 5. Overall agree with current management. 6. Addendum: Order renal ultrasound. Job ID: [id number]
--- NOTE | 2019-03-12 11:14 | PDOC.HOSPP ---
- Subjective non-verbal Subjective: Not much clinical improvement. Neurologically not making much improvement. Heart rate difficult to control despite diltiazem, metoprolol. Now cardiology starting Amiodarone. Renal function improved, pharmacy to continue to renally dose all medications. - Objective Vital Signs & Weight: Vital Signs (12 hours) Temp Pulse Resp BP 03/12/19 11:06 78 21 H 03/12/19 06:35 110 H 124/71 03/12/19 06:24 114 H 119/80 03/12/19 06:00 16 03/12/19 04:00 98.5 F 16 03/12/19 02:00 13 03/12/19 00:00 98.9 F 16 Weight Admit Weight 231 lb 7.766 oz Weight 232 lb 5.875 oz Most Recent Monitor Data Heart Rate from ECG 121 NIBP 119/80 NIBP BP-Mean 93 Respiration from ECG 12 SpO2 100 I&O: 03/11/19 03/12/19 03/13/19 06:59 06:59 06:59 Intake Total 2657.4 3901 Output Total 665 1005 Balance 1992.4 2896 Result Diagrams: 03/12/19 06:04 03/12/19 06:04 Radiology Reviewed by me: Yes (CXR 03/11) Hospitalist ROS - Review of Systems ROS unobtainable: due to endotracheal tube - Medication Medications: Active Medications Generic Name Dose Route Start Last Admin Trade Name Freq PRN Reason Stop Dose Admin Acetaminophen 650 mg 03/04/19 13:18 03/11/19 16:48 Tylenol TN 650 mg Q4H PRN Administration Headache/Fever/Mild Pain (1-3) Albuterol/Ipratropium 3 ml 03/11/19 15:00 03/12/19 11:06 Duoneb NEB 3 ml [id number] LOUIE Administration Amiodarone HCl 400 mg 03/12/19 09:00 03/12/19 09:25 Cordarone PO 400 mg TID LOUIE Administration Aspirin 300 mg 03/05/19 21:00 03/11/19 21:43 Aspirin TN 300 mg HS LOUIE Administration Bisacodyl 10 mg 03/04/19 13:18 03/11/19 15:53 Dulcolax TN 10 mg DAILYPRN PRN Administration Constipation Brimonidine Tartrate 1 drop 03/05/19 21:00 03/12/19 09:25 Alphagan 0.2% Ophth Soln EA EYE 1 drop BID LOUIE Administration Bupropion HCl 150 mg 03/06/19 09:00 03/12/19 09:26 Wellbutrin Sr PO 150 mg DAILY LOUIE Administration Carbidopa/Levodopa 1 tab 03/08/19 14:00 03/12/19 06:12 Sinemet 25-100 PO 1 tab Q8HR LOUIE Administration Enoxaparin Sodium 80 mg 03/12/19 09:00 03/12/19 09:30 Lovenox SC 80 mg DAILY LOUIE Administration Famotidine 20 mg 03/12/19 09:00 03/12/19 09:27 Pepcid PO 20 mg DAILY LOUIE Administration Fish Oil 1,000 mg 03/09/19 21:00 03/11/19 21:43 Fish Oil PO 1,000 mg HS LOUIE Administration Guaifenesin/Dextromethorphan 10 ml 03/12/19 10:00 03/12/19 10:03 Robitussin Dm PER TUBE 10 ml 0400,1000,1600,2200 LOUIE Administration Diltiazem HCl 125 mg/ 125 mls @ 5 mls/hr 03/10/19 02:45 03/12/19 02:28 Miscellaneous Medication 1 IVPB 125 mls each/ Sodium Chloride INF LOUIE Administration Protocol Piperacillin Sod/Tazobactam 100 mls @ 200 mls/hr 03/11/19 12:00 03/12/19 06: 12 Sod 3.375 gm/ Sodium Chloride IVPB 100 mls Q6HR LOUIE Administration Vancomycin HCl 1 gm/ Device 200 mls @ 200 mls/hr 03/11/19 14:00 03/12/19 02: 28 IVPB 200 mls 0200,1400 LOUIE Administration Sodium Chloride 1,000 mls @ 100 mls/hr 03/11/19 15:32 03/12/19 09:38 Normal Saline 0.9% IV 1,000 mls .Q10H LOUIE Administration Iron/Minerals/Multivitamins 15 ml 03/08/19 09:00 03/12/19 09:28 Certa Nickolas Liquid PER TUBE 15 ml DAILY LOUIE Administration Labetalol HCl 10 mg 03/04/19 13:18 03/09/19 05:18 Normodyne SLOW IVP 10 mg Q10MIN PRN Administration SBP > 180 or DBP > 105 Lorazepam 2 mg 03/04/19 14:29 03/09/19 15:04 Ativan SLOW IVP 04/03/19 14:29 2 mg Q1H PRN Administration Breakthrough agitation Metoprolol Tartrate 50 mg 03/11/19 21:00 03/12/19 09:27 Lopressor PER TUBE 50 mg BID LOUIE Administration Morphine Sulfate 2 mg 03/04/19 14:29 03/11/19 16:48 Morphine SLOW IVP 04/03/19 14:29 2 mg Q1H PRN Administration BREAKTHROUGH PAIN/Agitation Propofol 1,000 mg 03/11/19 19:01 03/11/19 23:58 Diprivan IV 04/10/19 19:01 1,000 mg INF PRN Administration TO ACHIEVE GOAL RASS Protocol Rosuvastatin Calcium 20 mg 03/04/19 21:00 03/11/19 21:43 Crestor PO 20 mg HS LOUIE Administration Scopolamine 1.5 mg 03/07/19 14:00 03/10/19 13:29 Transderm Scop TD 1.5 mg Q3D LOUIE Administration Sodium Chloride 10 ml 03/07/19 21:00 03/12/19 09:30 Flush - Normal Saline IVF 10 ml Q12HR LOUIE Administration - Exam General Appearance: ill appearing Eye: PERRL Eye - other findings: EOMI ENT: no oropharyngeal lesions, dry oral mucosa Neck: supple, symmetric, no lymphadenopathy Heart: no murmur, no gallops, no rubs Heart - other findings: Rapid irregular rhythm Respiratory: no rales, normal chest expansion, rhonchi, wheezes (improving) Gastrointestinal: soft, non-tender, no guarding, no rigidity Gastrointestinal - other findings: Obese Extremities: 1+ LE edema Skin: no lesions, no rashes Neurological: no new deficit Neurological - other findings: Not following commands. 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 - S/P ADMN TPA IN DIFF FAC W/N LAST 24 HR BEF ADM TO CRNT FAC Status: Acute (5) Dyslipidemia Code(s): E78.5 - HYPERLIPIDEMIA, UNSPECIFIED Status: Chronic (6) Glaucoma Code(s): H40.9 - UNSPECIFIED GLAUCOMA Status: Chronic (7) Hypertension Code(s): I10 - ESSENTIAL (PRIMARY) HYPERTENSION Status: Chronic - Plan Plan: Pulm/ CC consult, recommendations appreciated Cardiology consult, recommendations appreciated Nephrology consult, recommendations appreciated Neurology consult, recommendations appreciated Surgery consult, recommendations appreciated WBC trending up, having fever, appears toxic Continue broad spectrum ABX consider ID consult Consider CT abd/ pelvis to eval source of sepsis Blood Cx negative on 03/08 Trach site Cx Afib with RVR Start Amiodarone. Continue Metoprolol, diltiazem - per cardiology IV anticoagulation with lovenox, pharmacy to renally dose Renal function improved Renally dose all medications, per pharmacy S/p trach and peg on 03/10 Will likely need LTAC placement when medically optimized Statin ASA MRI brain noted Echo noted US carotid noted BP control Replace electrolytes as needed GI and DVT PPX
--- NOTE | 2019-03-12 12:21 | ULT ---
ULTRASOUND RENAL BILATERAL STANDARD: HISTORY: Acute renal failure. COMPARISON: None. FINDINGS: Real-time, cameron scale, and color evaluation of the kidneys and urinary bladder was performed. Urinary bladder is decompressed with a Mullen catheter. The right kidney measures 10.6 x 4.8 x 6.6 cm and the left kidney measures 11.9 x 5.7 x 6.3 cm. No renal mass, hydronephrosis, or abnormal calcif ications. IMPRESSION: No evidence for acute obstructive uropathy. POS: HOME
[2019-03-12] MEDS: Fish Oil 1,000 MG CAP PO SCH (19:22)
[2019-03-12] MEDS: Rosuvastatin 20 MG TAB PO SCH (19:22)
[2019-03-12] MEDS: Aspirin 300 MG Suppository PR SCH (19:22)
[2019-03-12] MEDS: Labetalol HCl 100 MG/20 ML VIAL SLOW IVP PRN (19:35)
[2019-03-13] MEDS: Labetalol HCl 100 MG/20 ML VIAL SLOW IVP PRN ×2 (00:48→06:04)
[2019-03-13 01:14] LABS: Vancomycin, Trough 12.5 ug/mL
[2019-03-13] MEDS: Vancomycin HCl 1.25 GM in Sodium Chloride 0.9% 250 ML 250 ML IVPB SCH ×2 (01:35→14:43)
[2019-03-13] MEDS: Guaifenesin DM 100-10/5 ML UDCUP PER TUBE SCH ×4 (03:03→21:49)
[2019-03-13] MEDS: Diltiazem HCl 125 MG, Admixture Fee 1 EACH in Sodium Chloride 0.9% 100 ML IVPB SCH (04:05)
[2019-03-13] MEDS: Piperacillin/Tazobactam 3.375 GM in Sodium Chloride 0.9% 100 ML IVPB SCH ×3 (05:04→17:17)
[2019-03-13] MEDS: Carbidopa/Levodopa 25-100 mg Tablet PO SCH ×3 (05:04→21:49)
[2019-03-13 06:07] LABS: Anion Gap 15 mmol/L (10-20); BUN (Urea Nitrogen) 23 mg/dL (8.4-25.7); Calc. Creatinine Clearance 87 mL/min (70-130); Calcium 8.3 mg/dL (7.8-10.44); Carbon Dioxide 20 mmol/L (23-31); Chloride 109 mmol/L (98-107); Estimated GFR-MDRD 63; Glucose 110 mg/dL (83-110); Potassium 3.4 mmol/L (3.5-5.1); Sodium 141 mmol/L (136-145)
[2019-03-13 06:11] LABS: Band 40 % (5-11); Hemoglobin 13.9 g/dL (14.0-18.0); Lymphocytes 1 % (21-51); MDiff Complete? YES; Mean Corpuscular HGB CONC 33.1 g/dL (32.0-36.0); Mean Corpuscular Hemoglobin 31.4 pg (27.0-31.0); Mean Corpuscular Volume 94.6 fL (78.0-98.0); Mean Platelet Volume 8.1 fL (7.4-10.4); Metamyelocyte 3 % (0-0); Monocytes 2 % (0-10); Myelocyte 1 % (0-0); Neutrophil 53 % (42-75); Platelet Count 235 thou/uL (130-400); Platelet Morphology Comment Appears Adequate; RBC Distribution Width 12.8 % (11.5-14.5); Red Blood Cell (RBC) Count 4.42 mill/uL (4.70-6.10); White Blood Cell (WBC) Count 31.1 thou/uL (4.8-10.8)
[2019-03-13] MEDS ORDERED: Enoxaparin Sodium 80 MG/0.8 ML SYRINGE SC SCH (09:00)
[2019-03-13] MEDS: Sodium Chloride 0.9% 1,000 ML IV SCH ×2 (10:02→15:06)
[2019-03-13] MEDS: Metoprolol Tartrate 100 MG TAB PER TUBE SCH ×2 (10:03→20:29)
[2019-03-13] MEDS: Amiodarone 200 MG TAB PO SCH ×3 (10:03→20:26)
[2019-03-13] MEDS: Bupropion 150 MG SR TAB PO SCH (10:03)
[2019-03-13] MEDS: Famotidine 20 MG TAB PO SCH ×2 (10:04→20:27)
[2019-03-13] MEDS: Multivits W-Minerals Liquid 15mL UDCUP PER TUBE SCH (10:04)
[2019-03-13] MEDS: Brimonidine Tartrate 0.2% Ophth Soln 5 ml Bottle EA EYE SCH ×2 (10:09→20:27)
--- NOTE | 2019-03-13 10:20 | OP ---
DATE OF PROCEDURE: 03/10/2019 PREOPERATIVE DIAGNOSES: Stroke, respiratory failure, dysphagia, and malnutrition. POSTOPERATIVE DIAGNOSES: Stroke, respiratory failure, dysphagia, and malnutrition. PROCEDURES: A #8 Shiley tracheostomy tube, percutaneous endoscopic gastrostomy tube. ANESTHESIA: General, local of 0.5% Marcaine with epinephrine. DESCRIPTION OF PROCEDURE: The patient was taken to the operating room, where under general anesthesia, neck and chest were prepared with ChloraPrep and draped in routine fashion. Local anesthetic was infiltrated in the skin and subcutaneous tissue of an anterior neck above the manubrium. Incision was carried down through the skin, subcutaneous tissue, platysma. Strap muscles reflected laterally. Anterior jugular veins divided between 3-0 silk ties and trachea identified, cleared of the isthmus, divided with cautery and placing tracheostomy sutures 3-0 Prolene on either side and excising a window of the trachea over 2 to 3 cartilaginous rings making the anterior window withdrawn. Endotracheal tube placed in the #8 Shiley low-pressure cuff into the trachea under direct visualization, inflating the cuff connecting it to the ventilator. Skin approximated with 3-0 Prolene suture. Sterile dressings applied. Endoscope placed per os under direct visualization and using air insufflation, passed throughout the esophagus into the stomach noting a good indentation of left subcostal. Abdomen was prepared with ChloraPrep. Local anesthetic was infiltrated in the skin and subcutaneous tissue. Stab incision made and trocar catheter induced percutaneously into the gastric lumen visualized endoscopically. Wire advanced, grasped with a snare and brought out through the mouth removing the endoscope. Wire connected to the feeding device, brought back down into the stomach, secured to the abdominal wall with fixation device and tube was tailored to length, connected to the feeding device. Sterile dressings were applied. The patient tolerated the procedure well. Job ID: [id number]
[2019-03-13] MEDS: Metoprolol Tartrate 50 MG TAB PER TUBE SCH (10:50)
--- NOTE | 2019-03-13 11:11 | PDOC.HOSPP ---
- Subjective Subjective: Seen and examined. Having some neuro improvements. Moving right side to commands. Opens eyes to voice and tracks around the room. Non verbal. No appreciated purposeful movments on the left. at bedside, all questions answered in detail. happy with clinical progression. - Objective Vital Signs & Weight: Vital Signs (12 hours) Temp Pulse Resp BP Pulse Ox 03/13/19 10:25 85 21 H 98 03/13/19 07:57 98 03/13/19 07:00 97.7 F 03/13/19 06:29 118 H 26 H 98 03/13/19 06:04 112 H 160/114 H 03/13/19 03:00 99.1 F 03/13/19 00:48 112 H 174/145 H Weight Admit Weight 231 lb 7.766 oz Weight 235 lb 10.786 oz Most Recent Monitor Data Heart Rate from ECG 82 NIBP 163/84 NIBP BP-Mean 110 Respiration from ECG 17 SpO2 99 I&O: 03/12/19 03/13/19 03/14/19 06:59 06:59 06:59 Intake Total 3901 3932 60 Output Total 1005 2965 990 Balance 2896 967 -930 Result Diagrams: 03/13/19 05:47 03/13/19 05:46 Radiology Reviewed by me: Yes (Renal US) Hospitalist ROS - Review of Systems All other systems reviewed; all pertinent +/- noted in HPI/Subj - Medication Medications: Active Medications Generic Name Dose Route Start Last Admin Trade Name Freq PRN Reason Stop Dose Admin Acetaminophen 650 mg 03/04/19 13:18 03/11/19 16:48 Tylenol [place] 650 mg Q4H PRN Administration Headache/Fever/Mild Pain (1-3) Albuterol/Ipratropium 3 ml 03/11/19 15:00 03/13/19 10:25 Duoneb NEB 3 ml [id number] LOUIE Administration Amiodarone HCl 400 mg 03/12/19 09:00 03/13/19 10:03 Cordarone PO 400 mg TID LOUIE Administration Bisacodyl 10 mg 03/04/19 13:18 03/11/19 15:53 Dulcolax LA 10 mg DAILYPRN PRN Administration Constipation Brimonidine Tartrate 1 drop 03/05/19 21:00 03/13/19 10:09 Alphagan 0.2% Ophth Soln EA EYE 1 drop BID LOUIE Administration Bupropion HCl 150 mg 03/06/19 09:00 03/13/19 10:03 Wellbutrin Sr PO 150 mg DAILY LOUIE Administration Carbidopa/Levodopa 1 tab 03/08/19 14:00 03/13/19 05:04 Sinemet 25-100 PO 1 tab Q8HR LOUIE Administration Enoxaparin Sodium 80 mg 03/13/19 09:00 03/13/19 10:02 Lovenox SC 80 mg DAILY LOUIE Administration Famotidine 20 mg 03/13/19 09:00 03/13/19 10:04 Pepcid PO 20 mg BID LOUIE Administration Fish Oil 1,000 mg 03/09/19 21:00 03/12/19 19:22 Fish Oil PO 1,000 mg HS LOUIE Administration Guaifenesin/Dextromethorphan 10 ml 03/12/19 10:00 03/13/19 10:02 Robitussin Dm PER TUBE 10 ml 0400,1000,1600,2200 LOUIE Administration Piperacillin Sod/Tazobactam 100 mls @ 200 mls/hr 03/11/19 12:00 03/13/19 05: 04 Sod 3.375 gm/ Sodium Chloride IVPB 100 mls Q6HR LOUIE Administration Sodium Chloride 1,000 mls @ 100 mls/hr 03/11/19 15:32 03/13/19 10:02 Normal Saline 0.9% IV 1,000 mls .Q10H LOUIE Administration Diltiazem HCl 125 mg/ 125 mls @ 0 mls/hr 03/12/19 13:45 03/13/19 04:05 Miscellaneous Medication 1 IVPB 125 mls each/ Sodium Chloride INF LOUIE Administration Protocol Titrate Vancomycin HCl 1.25 gm/ Sodium 250 mls @ 166.667 mls/hr 03/13/19 02:00 01:35 Chloride IVPB 250 mls 0200,1400 LOUIE Administration Iron/Minerals/Multivitamins 15 ml 03/08/19 09:00 03/13/19 10:04 Certa Nickolas Liquid PER TUBE 15 ml DAILY LOUIE Administration Labetalol HCl 10 mg 03/04/19 13:18 03/13/19 06:04 Normodyne SLOW IVP 10 mg Q10MIN PRN Administration SBP > 180 or DBP > 105 Lorazepam 2 mg 03/04/19 14:29 03/09/19 15:04 Ativan SLOW IVP 04/03/19 14:29 2 mg Q1H PRN Administration Breakthrough agitation Metoprolol Tartrate 100 mg 03/13/19 09:00 03/13/19 10:03 Lopressor PER TUBE 100 mg BID LOUIE Administration Morphine Sulfate 2 mg 03/04/19 14:29 03/11/19 16:48 Morphine SLOW IVP 04/03/19 14:29 2 mg Q1H PRN Administration BREAKTHROUGH PAIN/Agitation Propofol 1,000 mg 03/11/19 19:01 03/11/19 23:58 Diprivan IV 04/10/19 19:01 1,000 mg INF PRN Administration TO ACHIEVE GOAL RASS Protocol Rosuvastatin Calcium 20 mg 03/04/19 21:00 03/12/19 19:22 Crestor PO 20 mg HS LOUIE Administration Scopolamine 1.5 mg 03/07/19 14:00 03/10/19 13:29 Transderm Scop TD 1.5 mg Q3D LOUIE Administration Sodium Chloride 10 ml 03/07/19 21:00 03/13/19 10:11 Flush - Normal Saline IVF 10 ml Q12HR LOUIE Administration - Exam General Appearance: NAD Eye: PERRL, anicteric sclera Eye - other findings: EOMI ENT: no oropharyngeal lesions, moist mucosa, dry oral mucosa Neck: supple, symmetric, no lymphadenopathy Heart: no murmur, no gallops, no rubs, irregular Heart - other findings: Rate 80's-110's while Im in the room, variable Respiratory: no rales, normal chest expansion, rhonchi, wheezes (Improving) Gastrointestinal: soft, non-tender, non-distended, no guarding, no rigidity Extremities: 2+ LE edema Skin: no lesions, no rashes Neurological: no new deficit, hemiplegia, speech deficit Neurological - other findings: Right motor improved 3/5 UE. 2/5 LE. 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 - S/P ADMN TPA IN DIFF FAC W/N LAST 24 HR BEF ADM TO CRNT FAC Status: Acute (5) Dyslipidemia Code(s): E78.5 - HYPERLIPIDEMIA, UNSPECIFIED Status: Chronic (6) Glaucoma Code(s): H40.9 - UNSPECIFIED GLAUCOMA Status: Chronic (7) Hypertension Code(s): I10 - ESSENTIAL (PRIMARY) HYPERTENSION Status: Chronic (8) Sepsis Code(s): A41.9 - SEPSIS, UNSPECIFIED ORGANISM Status: Acute (9) Pneumonia Code(s): J18.9 - PNEUMONIA, UNSPECIFIED ORGANISM Status: Acute (10) CAPRICE (acute kidney injury) Code(s): N17.9 - ACUTE KIDNEY FAILURE, UNSPECIFIED Status: Acute - Plan Plan: Pulm/ CC consult, recommendations appreciated Cardiology consult, recommendations appreciated Nephrology consult, recommendations appreciated Neurology consult, recommendations appreciated Surgery consult, recommendations appreciated WBC trending up, having fever, appears toxic Continue broad spectrum ABX consider ID consult Blood Cx negative on 03/08 Trach site Cx Afib with RVR Continue rate control vs rhythm control agents per cardiology IV anticoagulation with lovenox, pharmacy to renally dose Renal function improved Renally dose all medications, per pharmacy S/p trach and peg on 03/10 Will likely need LTAC placement when medically optimized Statin ASA MRI brain noted Echo noted US carotid noted BP control Replace electrolytes as needed GI and DVT PPX
[2019-03-13] MEDS: Scopolamine 1.5 mg/72 hour Patch TD SCH (14:44)
[2019-03-13] MEDS ORDERED: Potassium Chloride 20 MEQ TAB PO SCH (14:45)
--- NOTE | 2019-03-13 14:49 | PRG ---
DATE OF SERVICE: 03/13/2019 SUBJECTIVE: Claude Mitchell is in no distress. His felt like he was a little better yesterday than today. OBJECTIVE: VITAL SIGNS: Heart rate 79, blood pressure 164/77. HEART: Regular rhythm. ABDOMEN: Soft. LABORATORY DATA: White count 31.1, platelets 235,000, sodium 141, potassium 3.4, chloride 109, bicarb 20, creatinine 1.13. IMPRESSION: 1. S/P CVA with tPA administration. 2. Status post tracheostomy, PEG placement after failed extubation secondary to vocal cord edema combined with moderate inability to clear secretions . 3. Acute on chronic kidney disease. He needs to stay in the Critical Care Unit. He will probably need LTAC. Job ID: [id number] MTDD
--- NOTE | 2019-03-13 15:05 | PRG ---
DATE OF SERVICE: 03/13/2019 SUBJECTIVE: Mr. Mitchell is sitting up in the chair. He is doing well. He has converted to sinus rhythm. OBJECTIVE: VITAL SIGNS: Blood pressure 160/77, pulse it is now sinus with a rate in the 80s. LUNGS: Clear of any wheezing and some rhonchi. CARDIAC: Normal S1, normal S2. ABDOMEN: Soft, nontender. EXTREMITIES: There is mild edema. PERTINENT LABORATORY DATA: His creatinine has improved at 1.13. Potassium is 3.4. ASSESSMENT: 1. Paroxysmal atrial fibrillation, now in sinus rhythm. 2. Recent stroke. PLAN: 1. Stop Cardizem. 2. We will go back to enoxaparin 80 mg twice a day. 3. Replete potassium. 4. metoprolol. Job ID: [id number]
--- NOTE | 2019-03-13 16:39 | EKG ---
Test Reason : STAT Blood Pressure : / mmHG Vent. Rate : 120 BPM Atrial Rate : 105 BPM P-R Int : 000 ms QRS Dur : 090 ms QT Int : 314 ms P-R-T Axes : 000 011 204 degrees QTc Int : 443 ms Atrial fibrillation with rapid ventricular response Abnormal ECG Confirmed by JAREN NAIR ([id number]) on 03/13/2019 4:39:29 PM Referred By: SELWYN Confirmed By:JAREN NAIR
[2019-03-13] MEDS: Aspirin 325 MG TAB PER TUBE SCH (20:26)
[2019-03-13] MEDS: Rosuvastatin 20 MG TAB PO SCH (20:27)
[2019-03-13] MEDS: Fish Oil 1,000 MG CAP PO SCH (20:27)
[2019-03-13] MEDS: Enoxaparin Sodium 80 MG/0.8 ML SYRINGE SC SCH (21:49)
[2019-03-14] MEDS: Piperacillin/Tazobactam 3.375 GM in Sodium Chloride 0.9% 100 ML IVPB SCH ×4 (00:12→17:01)
[2019-03-14] MEDS: Vancomycin HCl 1.25 GM in Sodium Chloride 0.9% 250 ML 250 ML IVPB SCH ×2 (02:19→14:08)
[2019-03-14] MEDS: Labetalol HCl 100 MG/20 ML VIAL SLOW IVP PRN ×4 (03:34→09:41)
[2019-03-14] MEDS: Guaifenesin DM 100-10/5 ML UDCUP PER TUBE SCH ×4 (04:42→22:29)
[2019-03-14 04:58] LABS: Band 9 % (5-11); Hemoglobin 12.4 g/dL (14.0-18.0); Hypochromia SLIGHT = 6-15 cells (100X) (0-5/hpf); Lymphocytes 9 % (21-51); MDiff Complete? YES; Mean Corpuscular HGB CONC 33.5 g/dL (32.0-36.0); Mean Corpuscular Hemoglobin 31.7 pg (27.0-31.0); Mean Corpuscular Volume 94.6 fL (78.0-98.0); Mean Platelet Volume 7.8 fL (7.4-10.4); Metamyelocyte 1 % (0-0); Monocytes 7 % (0-10); Neutrophil 74 % (42-75); Platelet Count 312 thou/uL (130-400); Platelet Morphology Comment Appears Adequate; RBC Distribution Width 12.6 % (11.5-14.5); White Blood Cell (WBC) Count 29.1 thou/uL (4.8-10.8)
[2019-03-14 05:00] LABS: Anion Gap 13 mmol/L (10-20); BUN (Urea Nitrogen) 27 mg/dL (8.4-25.7); Calc. Creatinine Clearance 98 mL/min (70-130); Calcium 8.3 mg/dL (7.8-10.44); Carbon Dioxide 23 mmol/L (23-31); Chloride 109 mmol/L (98-107); Estimated GFR-MDRD 73; Glucose 123 mg/dL (83-110); Potassium 3.1 mmol/L (3.5-5.1); Sodium 142 mmol/L (136-145)
[2019-03-14] MEDS: Carbidopa/Levodopa 25-100 mg Tablet PO SCH ×3 (06:09→22:29)
[2019-03-14] MEDS: Multivits W-Minerals Liquid 15mL UDCUP PER TUBE SCH (09:41)
[2019-03-14] MEDS: Enoxaparin Sodium 80 MG/0.8 ML SYRINGE SC SCH ×2 (09:41→20:19)
[2019-03-14] MEDS: Amiodarone 200 MG TAB PO SCH ×3 (09:42→20:18)
[2019-03-14] MEDS: Brimonidine Tartrate 0.2% Ophth Soln 5 ml Bottle EA EYE SCH ×2 (09:42→20:19)
[2019-03-14] MEDS: Bupropion 150 MG SR TAB PO SCH (09:42)
[2019-03-14] MEDS: Metoprolol Tartrate 100 MG TAB PER TUBE SCH ×2 (09:42→20:18)
[2019-03-14] MEDS: Famotidine 20 MG TAB PO SCH ×2 (09:42→20:18)
[2019-03-14] MEDS: Sodium Chloride 0.9% 1,000 ML IV SCH (10:08)
[2019-03-14] MEDS: Metoclopramide HCl 10 MG/2 ML VIAL IVP SCH ×2 (11:14→17:01)
[2019-03-14 13:39] LABS: Vancomycin, Trough 18.5 ug/mL
[2019-03-14] MEDS: hydrALAZINE 20 MG/ML VIAL SLOW IVP PRN (14:09)
--- NOTE | 2019-03-14 15:16 | PDOC.HOSPP ---
- Subjective Subjective: Seen and examined. Continues to have slow neurologic improvement. Moving right side more. Moving neck more. Still no purpuseful movement in the left. Left sided hemineglect, will not look to the left. at bedside, all questions answered in detail. - Objective Vital Signs & Weight: Vital Signs (12 hours) Temp Pulse Resp BP Pulse Ox 03/14/19 14:09 75 188/102 H 03/14/19 11:00 98.2 F 03/14/19 10:49 75 28 H 98 03/14/19 09:41 75 181/98 H 03/14/19 08:00 98 03/14/19 07:15 75 181/98 H 03/14/19 07:00 98.4 F 03/14/19 06:36 75 20 99 03/14/19 04:32 80 196/90 H 03/14/19 04:00 98.1 F 03/14/19 03:34 74 187/106 H Weight Admit Weight 231 lb 7.766 oz Weight 230 lb 6.129 oz Most Recent Monitor Data Heart Rate from ECG 80 NIBP 188/102 NIBP BP-Mean 130 Respiration from ECG 26 SpO2 97 I&O: 03/13/19 03/14/19 03/15/19 06:59 06:59 06:59 Intake Total 3932 4210 Output Total 2965 6080 1010 Balance 967 -1870 -1010 Result Diagrams: 03/14/19 04:20 03/14/19 04:20 Hospitalist ROS - Review of Systems ROS unobtainable: due to mental status - Medication Medications: Active Medications Generic Name Dose Route Start Last Admin Trade Name Freq PRN Reason Stop Dose Admin Acetaminophen 650 mg 03/04/19 13:18 03/11/19 16:48 Tylenol [place] 650 mg Q4H PRN Administration Headache/Fever/Mild Pain (1-3) Albuterol/Ipratropium 3 ml 03/11/19 15:00 03/14/19 10:49 Duoneb NEB 3 ml [id number] LOUIE Administration Amiodarone HCl 400 mg 03/12/19 09:00 03/14/19 14:08 Cordarone PO 400 mg TID LOUIE Administration Aspirin 325 mg 03/13/19 21:00 03/13/19 20:26 Aspirin PER TUBE 325 mg HS LOUIE Administration Bisacodyl 10 mg 03/04/19 13:18 03/11/19 15:53 Dulcolax [place] 10 mg DAILYPRN PRN Administration Constipation Brimonidine Tartrate 1 drop 03/05/19 21:00 03/14/19 09:42 Alphagan 0.2% Ophth Soln EA EYE 1 drop BID LOUIE Administration Bupropion HCl 150 mg 03/06/19 09:00 03/14/19 09:42 Wellbutrin Sr PO 150 mg DAILY LOUIE Administration Carbidopa/Levodopa 1 tab 03/08/19 14:00 03/14/19 14:08 Sinemet 25-100 PO 1 tab Q8HR LOUIE Administration Enoxaparin Sodium 80 mg 03/13/19 21:00 03/14/19 09:41 Lovenox SC 80 mg 0900,2100 LOUIE Administration Famotidine 20 mg 03/13/19 09:00 03/14/19 09:42 Pepcid PO 20 mg BID LOUIE Administration Fish Oil 1,000 mg 03/09/19 21:00 03/13/19 20:27 Fish Oil PO 1,000 mg HS LOUIE Administration Guaifenesin/Dextromethorphan 10 ml 03/12/19 10:00 03/14/19 09:41 Robitussin Dm PER TUBE 10 ml 0400,1000,1600,2200 LOUIE Administration Hydralazine HCl 10 mg 03/04/19 13:18 03/14/19 14:09 Apresoline SLOW IVP 10 mg Q4H PRN Administration SBP > 180 or DBP > 105 Piperacillin Sod/Tazobactam 100 mls @ 200 mls/hr 03/11/19 12:00 03/14/19 11: 19 Sod 3.375 gm/ Sodium Chloride IVPB 100 mls Q6HR LOUIE Administration Vancomycin HCl 1.25 gm/ Sodium 250 mls @ 166.667 mls/hr 03/13/19 02:00 14:08 Chloride IVPB 250 mls 0200,1400 LOUIE Administration Sodium Chloride 1,000 mls @ 50 mls/hr 03/13/19 14:25 03/14/19 10:08 Normal Saline 0.9% IV 1,000 mls .Q20H LOUIE Administration Iron/Minerals/Multivitamins 15 ml 03/08/19 09:00 03/14/19 09:41 Certa Nickolas Liquid PER TUBE 15 ml DAILY LOUIE Administration Labetalol HCl 10 mg 03/04/19 13:18 03/14/19 09:41 Normodyne SLOW IVP 10 mg Q10MIN PRN Administration SBP > 180 or DBP > 105 Metoclopramide HCl 10 mg 03/14/19 12:00 03/14/19 11:14 Reglan IVP 10 mg Q6HR LOUIE Administration Metoprolol Tartrate 100 mg 03/13/19 09:00 03/14/19 09:42 Lopressor PER TUBE 100 mg BID LOUIE Administration Propofol 1,000 mg 03/11/19 19:01 03/11/19 23:58 Diprivan IV 04/10/19 19:01 1,000 mg INF PRN Administration TO ACHIEVE GOAL RASS Protocol Rosuvastatin Calcium 20 mg 03/04/19 21:00 03/13/19 20:27 Crestor PO 20 mg HS LOUIE Administration Scopolamine 1.5 mg 03/07/19 14:00 03/13/19 14:44 Transderm Scop TD 1.5 mg Q3D LOUIE Administration Sodium Chloride 10 ml 03/07/19 21:00 03/14/19 09:50 Flush - Normal Saline IVF Not Given Q12HR LOUIE Sodium Chloride 10 ml 03/07/19 13:17 03/14/19 10:09 Flush - Normal Saline IVF 10 ml PRN PRN Administration Saline Flush - Exam General Appearance: NAD Eye: anicteric sclera ENT: no oropharyngeal lesions, moist mucosa Neck: supple, symmetric, no lymphadenopathy Heart: no murmur, no gallops, no rubs, irregular Respiratory: no rales, normal chest expansion, no tachypnea, rhonchi, wheezes Gastrointestinal: non-tender, non-distended, normal bowel sounds, no guarding, no rigidity Extremities: 2+ LE edema Skin: no lesions, no rashes Neurological: hemiplegia, speech deficit Neurological - other findings: +3/5 right motor. 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 - S/P ADMN TPA IN DIFF FAC W/N LAST 24 HR BEF ADM TO CRNT FAC Status: Acute (5) Dyslipidemia Code(s): E78.5 - HYPERLIPIDEMIA, UNSPECIFIED Status: Chronic (6) Glaucoma Code(s): H40.9 - UNSPECIFIED GLAUCOMA Status: Chronic (7) Hypertension Code(s): I10 - ESSENTIAL (PRIMARY) HYPERTENSION Status: Chronic (8) Sepsis Code(s): A41.9 - SEPSIS, UNSPECIFIED ORGANISM Status: Acute (9) Pneumonia Code(s): J18.9 - PNEUMONIA, UNSPECIFIED ORGANISM Status: Acute (10) CAPRICE (acute kidney injury) Code(s): N17.9 - ACUTE KIDNEY FAILURE, UNSPECIFIED Status: Acute - Plan Plan: Pulm/ CC consult, recommendations appreciated Cardiology consult, recommendations appreciated Nephrology consult, recommendations appreciated Neurology consult, recommendations appreciated Surgery consult, recommendations appreciated WBC improving, fever resolved since I started antibiotics - clinically improving Continue broad spectrum ABX Gram stain resp secretions with mixed daron including gram neg rods Blood Cx negative on 03/08 Trach site Cx Afib with RVR - improved on current regimen Continue rate control vs rhythm control agents per cardiology IV anticoagulation with lovenox, pharmacy to renally dose Renal function improved Renally dose all medications, per pharmacy S/p trach and peg on 03/10 Will likely need LTAC placement when medically optimized Statin ASA MRI brain noted Echo noted US carotid noted BP control PT/ OT eval and treat Replace electrolytes as needed GI and DVT PPX
[2019-03-14] MEDS ORDERED: Amlodipine 5 MG TAB PO SCH (18:15)
--- NOTE | 2019-03-14 18:15 | PRG ---
DATE OF SERVICE: 03/14/2019 SUBJECTIVE: Mr. Mitchell is sitting up in a chair. Seems to be recovering to some degree from mental status standpoint. OBJECTIVE: VITAL SIGNS: Blood pressure is 160/90, pulse is 78. LUNGS: Clear. CARDIAC: Normal S1. Normal S2. ABDOMEN: Soft and nontender. ASSESSMENT: 1. Previous stroke. 2. Paroxysmal atrial fibrillation, maintaining sinus rhythm. 3. Hypertension. PLAN: 1. Continue amiodarone. 2. Renal function is back to normal. He is on full dose of Lovenox now. 3. He is on p.r.n. hydralazine, we will add amlodipine. Job ID: [id number]
[2019-03-14] MEDS: Rosuvastatin 20 MG TAB PO SCH (20:17)
[2019-03-14] MEDS: Aspirin 325 MG TAB PER TUBE SCH (20:17)
[2019-03-14] MEDS: Fish Oil 1,000 MG CAP PO SCH (20:19)
[2019-03-15] MEDS: Metoclopramide HCl 10 MG/2 ML VIAL IVP SCH ×5 (00:32→23:09)
[2019-03-15] MEDS: Piperacillin/Tazobactam 3.375 GM in Sodium Chloride 0.9% 100 ML IVPB SCH ×5 (00:32→23:09)
[2019-03-15] MEDS: Vancomycin HCl 1.25 GM in Sodium Chloride 0.9% 250 ML 250 ML IVPB SCH ×2 (02:26→14:01)
[2019-03-15] MEDS: Guaifenesin DM 100-10/5 ML UDCUP PER TUBE SCH ×4 (04:24→21:07)
[2019-03-15] MEDS: Acetaminophen 650 MG/20.3 ML UDCUP PER TUBE PRN ×2 (04:24→10:21)
[2019-03-15 04:57] LABS: Band 7 % (5-11); Hemoglobin 11.8 g/dL (14.0-18.0); Lymphocytes 6 % (21-51); MDiff Complete? YES; Mean Corpuscular HGB CONC 34.3 g/dL (32.0-36.0); Mean Corpuscular Hemoglobin 32.2 pg (27.0-31.0); Mean Corpuscular Volume 94.1 fL (78.0-98.0); Mean Platelet Volume 8.1 fL (7.4-10.4); Metamyelocyte 1 % (0-0); Monocytes 7 % (0-10); Myelocyte 2 % (0-0); Neutrophil 77 % (42-75); Platelet Count 328 thou/uL (130-400); Platelet Morphology Comment Appears Adequate; RBC Distribution Width 12.9 % (11.5-14.5); Red Blood Cell (RBC) Count 3.65 mill/uL (4.70-6.10); White Blood Cell (WBC) Count 25.4 thou/uL (4.8-10.8)
[2019-03-15 05:09] LABS: Anion Gap 14 mmol/L (10-20); BUN (Urea Nitrogen) 32 mg/dL (8.4-25.7); Calc. Creatinine Clearance 84 mL/min (70-130); Calcium 8.4 mg/dL (7.8-10.44); Carbon Dioxide 24 mmol/L (23-31); Chloride 110 mmol/L (98-107); Estimated GFR-MDRD 63; Glucose 107 mg/dL (83-110); Sodium 145 mmol/L (136-145)
[2019-03-15] MEDS: Carbidopa/Levodopa 25-100 mg Tablet PO SCH ×3 (05:49→21:07)
[2019-03-15] MEDS: Labetalol HCl 100 MG/20 ML VIAL SLOW IVP PRN ×2 (08:51→10:14)
[2019-03-15] MEDS: Sodium Chloride 0.9% 1,000 ML IV SCH (10:05)
[2019-03-15] MEDS: Amlodipine 5 MG TAB PO SCH (10:09)
[2019-03-15] MEDS: Amiodarone 200 MG TAB PO SCH ×3 (10:09→21:07)
[2019-03-15] MEDS: Famotidine 20 MG TAB PO SCH ×2 (10:11→21:06)
[2019-03-15] MEDS: Enoxaparin Sodium 80 MG/0.8 ML SYRINGE SC SCH ×2 (10:11→21:07)
[2019-03-15] MEDS: Brimonidine Tartrate 0.2% Ophth Soln 5 ml Bottle EA EYE SCH ×2 (10:11→21:08)
[2019-03-15] MEDS: Bupropion 150 MG SR TAB PO SCH (10:11)
[2019-03-15] MEDS: Metoprolol Tartrate 100 MG TAB PER TUBE SCH ×2 (10:12→21:07)
[2019-03-15] MEDS: Multivits W-Minerals Liquid 15mL UDCUP PER TUBE SCH (10:29)
--- NOTE | 2019-03-15 11:00 | PRG ---
DATE OF SERVICE: 03/14/2019 SUBJECTIVE: Mr. Mitchell is a little more cooperative today, but his cooperation is intermittent. One of the physical therapist actually gets more out of him than anybody. OBJECTIVE: VITAL SIGNS: Pulse in the 70s, respiratory rate in 20s, blood pressure stable. LUNGS: Remarkable for rhonchi bilaterally, they are mild. HEART: Regular rhythm. ABDOMEN: Soft. LABORATORY DATA: White count 29.1, hemoglobin 12.4, platelets 312,000, sodium 142, potassium 3.1, chloride 109, bicarb 23, BUN 27, creatinine 1. Intake and output reviewed. IMPRESSION: Status post mechanical ventilation for stroke with emergent re-intubation secondary to vocal cord edema and retained secretions. He is a candidate for evaluation for LTAC. Job ID: [id number] [facility]
[2019-03-15] MEDS ORDERED: Potassium Chloride 20 MEQ TAB PO PRN (13:32)
[2019-03-15] MEDS ORDERED: Magnesium 2 GM/50 ML 2 GM in Premix Bag 1 BAG IVPB PRN (13:32)
[2019-03-15] MEDS ORDERED: Potassium Chloride 40 MEQ in Sodium Chloride 0.9% 250 ML 250 ML IVPB PRN (13:32)
[2019-03-15] MEDS ORDERED: Potassium Phosphate 9 MMOL in Sodium Chloride 0.9% 100 ML IVPB PRN (13:32)
[2019-03-15] MEDS ORDERED: Potassium Chloride 40 MEQ in Premix Bag 1 BAG IVPB PRN (13:32)
[2019-03-15] MEDS ORDERED: Potassium Phosphate 12 MMOL in Sodium Chloride 0.9% 250 ML 250 ML IV PRN (13:32)
[2019-03-15] MEDS ORDERED: Potassium Phosphate 15 MMOL in Sodium Chloride 0.9% 250 ML 250 ML IV PRN (13:32)
[2019-03-15] MEDS ORDERED: PHOS-NAK 1 PKT PACK PO PRN ×2 (13:32)
[2019-03-15] MEDS ORDERED: Magnesium Oxide 400 MG TAB PO PRN ×2 (13:32)
[2019-03-15] MEDS ORDERED: CCU Electrolyte Replacement 1 EACH IVPB PRN (13:32)
--- NOTE | 2019-03-15 15:35 | PDOC.HOSPP ---
- Subjective Subjective: Seen and examined. Neurologic status improves slowly day by day. states he was crawling out of the bed and using his left side more. I did see the patient move his left arm and looking to his left side. All questions were answered in detail, is happy with improvements. - Objective Vital Signs & Weight: Vital Signs (12 hours) Temp Pulse Resp BP Pulse Ox 03/15/19 14:35 88 22 H 94 L 03/15/19 12:00 98 F 03/15/19 10:26 81 26 H 98 03/15/19 10:14 83 192/95 H 03/15/19 10:09 83 192/95 H 03/15/19 08:51 83 192/95 H 03/15/19 08:02 76 24 H 96 03/15/19 08:00 98.8 F 98 03/15/19 04:00 98.5 F Weight Admit Weight 231 lb 7.766 oz Weight 229 lb 0.964 oz Most Recent Monitor Data Heart Rate from ECG 66 NIBP 171/79 NIBP BP-Mean 109 Respiration from ECG 17 SpO2 98 I&O: 03/14/19 03/15/19 03/16/19 06:59 06:59 06:59 Intake Total 4210 2780 180 Output Total 6080 2733 850 Balance -1870 47 -670 Result Diagrams: 03/15/19 04:35 03/15/19 04:35 Hospitalist ROS - Review of Systems ROS unobtainable: due to endotracheal tube - Medication Medications: Active Medications Generic Name Dose Route Start Last Admin Trade Name Freq PRN Reason Stop Dose Admin Acetaminophen 650 mg 03/04/19 13:18 03/11/19 16:48 Tylenol PA 650 mg Q4H PRN Administration Headache/Fever/Mild Pain (1-3) Acetaminophen 650 mg 03/15/19 04:04 03/15/19 10:21 Tylenol Elixir PER TUBE 650 mg Q6H PRN Administration Mild Pain (1-3) Albuterol/Ipratropium 3 ml 03/11/19 15:00 03/15/19 14:35 Duoneb NEB 3 ml [id number] LOUIE Administration Amiodarone HCl 400 mg 03/12/19 09:00 03/15/19 14:04 Cordarone PO 400 mg TID LOUIE Administration Amlodipine Besylate 5 mg 03/15/19 09:00 03/15/19 10:09 Norvasc PO 5 mg DAILY LOUIE Administration Aspirin 325 mg 03/13/19 21:00 03/14/19 20:17 Aspirin PER TUBE 325 mg HS LOUIE Administration Bisacodyl 10 mg 03/04/19 13:18 03/11/19 15:53 Dulcolax PA 10 mg DAILYPRN PRN Administration Constipation Brimonidine Tartrate 1 drop 03/05/19 21:00 03/15/19 10:11 Alphagan 0.2% Ophth Soln EA EYE 1 drop BID LOUIE Administration Bupropion HCl 150 mg 03/06/19 09:00 03/15/19 10:11 Wellbutrin Sr PO 150 mg DAILY LOUIE Administration Carbidopa/Levodopa 1 tab 03/08/19 14:00 03/15/19 14:01 Sinemet 25-100 PO 1 tab Q8HR LOUIE Administration Enoxaparin Sodium 80 mg 03/13/19 21:00 03/15/19 10:11 Lovenox SC 80 mg 0900,2099 LOUIE Administration Famotidine 20 mg 03/13/19 09:00 03/15/19 10:11 Pepcid PO 20 mg BID LOUIE Administration Fish Oil 1,000 mg 03/09/19 21:00 03/14/19 20:19 Fish Oil PO 1,000 mg HS LOUIE Administration Guaifenesin/Dextromethorphan 10 ml 03/12/19 10:00 03/15/19 14:08 Robitussin Dm PER TUBE 10 ml 0400,1000,1600,2200 LOUIE Administration Hydralazine HCl 10 mg 03/04/19 13:18 03/14/19 14:09 Apresoline SLOW IVP 10 mg Q4H PRN Administration SBP > 180 or DBP > 105 Piperacillin Sod/Tazobactam 100 mls @ 200 mls/hr 03/11/19 12:00 03/15/19 12: 29 Sod 3.375 gm/ Sodium Chloride IVPB 100 mls Q6HR LOUIE Administration Vancomycin HCl 1.25 gm/ Sodium 250 mls @ 166.667 mls/hr 03/13/19 02:00 14:01 Chloride IVPB 250 mls 0200,1400 LOUIE Administration Iron/Minerals/Multivitamins 15 ml 03/08/19 09:00 03/15/19 10:29 Certa Nickolas Liquid PER TUBE 15 ml DAILY LOUIE Administration Labetalol HCl 10 mg 03/04/19 13:18 03/15/19 10:14 Normodyne SLOW IVP 10 mg Q10MIN PRN Administration SBP > 180 or DBP > 105 Metoclopramide HCl 10 mg 03/14/19 12:00 03/15/19 12:30 Reglan IVP 10 mg Q6HR LOUIE Administration Metoprolol Tartrate 100 mg 03/13/19 09:00 03/15/19 10:12 Lopressor PER TUBE 100 mg BID LOUIE Administration Rosuvastatin Calcium 20 mg 03/04/19 21:00 03/14/19 20:17 Crestor PO 20 mg HS LOUIE Administration Scopolamine 1.5 mg 03/07/19 14:00 03/13/19 14:44 Transderm Scop TD 1.5 mg Q3D LOUIE Administration Sodium Chloride 10 ml 03/07/19 21:00 03/15/19 10:12 Flush - Normal Saline IVF 10 ml Q12HR LOUIE Administration Sodium Chloride 10 ml 03/07/19 13:17 03/15/19 05:50 Flush - Normal Saline IVF 10 ml PRN PRN Administration Saline Flush - Exam General Appearance: awake alert, ill appearing Eye: PERRL, anicteric sclera ENT: no oropharyngeal lesions, moist mucosa Neck: supple, symmetric, no lymphadenopathy Heart: no murmur, no gallops, no rubs, irregular Respiratory: no rales, rhonchi (Improving), tachypneic, wheezes (Improving) Gastrointestinal: soft, non-tender, non-distended, no guarding, no rigidity Extremities: 2+ LE edema Skin: no lesions, no rashes Neurological: no new deficit Neurological - other findings: Left deficits improving. 4/5 today UE. 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 Code(s): Z92.82 - S/P ADMN TPA IN DIFF FAC W/N LAST 24 HR BEF ADM TO CRNT FAC Status: Acute (5) Dyslipidemia Code(s): E78.5 - HYPERLIPIDEMIA, UNSPECIFIED Status: Chronic (6) Glaucoma Code(s): H40.9 - UNSPECIFIED GLAUCOMA Status: Chronic (7) Hypertension Code(s): I10 - ESSENTIAL (PRIMARY) HYPERTENSION Status: Chronic (8) Sepsis Code(s): A41.9 - SEPSIS, UNSPECIFIED ORGANISM Status: Acute (9) Pneumonia Code(s): J18.9 - PNEUMONIA, UNSPECIFIED ORGANISM Status: Acute (10) CAPRICE (acute kidney injury) Code(s): N17.9 - ACUTE KIDNEY FAILURE, UNSPECIFIED Status: Acute - Plan Plan: Pulm/ CC consult, recommendations appreciated Cardiology consult, recommendations appreciated Nephrology consult, recommendations appreciated Neurology consult, recommendations appreciated Surgery consult, recommendations appreciated WBC improving, fever resolved - clinically improving Continue broad spectrum ABX Gram stain resp secretions with mixed daron including gram neg rods Blood Cx negative on 03/08 Trach site Cx Afib with RVR - improved on current regimen Continue rate control vs rhythm control agents per cardiology IV anticoagulation with lovenox, pharmacy to renally dose Renal function improved Renally dose all medications, per pharmacy S/p trach and peg on 03/10 Will likely need LTAC placement when medically optimized Statin ASA Lisionopril for CVA prevention and better BP control MRI brain noted Echo noted US carotid noted BP control PT/ OT eval and treat Replace electrolytes as needed GI and DVT PPX
[2019-03-15] MEDS ORDERED: Lisinopril 5 MG TAB PO SCH (15:45)
[2019-03-15] MEDS: Fish Oil 1,000 MG CAP PO SCH (21:06)
[2019-03-15] MEDS: Aspirin 325 MG TAB PER TUBE SCH (21:07)
[2019-03-15] MEDS: Rosuvastatin 20 MG TAB PO SCH (21:07)
[2019-03-16] MEDS: Vancomycin HCl 1.25 GM in Sodium Chloride 0.9% 250 ML 250 ML IVPB SCH ×2 (01:28→14:48)
[2019-03-16] MEDS: Piperacillin/Tazobactam 3.375 GM in Sodium Chloride 0.9% 100 ML IVPB SCH ×4 (05:17→23:07)
[2019-03-16] MEDS: Metoclopramide HCl 10 MG/2 ML VIAL IVP SCH ×4 (05:17→23:13)
[2019-03-16] MEDS: Guaifenesin DM 100-10/5 ML UDCUP PER TUBE SCH ×4 (05:17→20:03)
[2019-03-16] MEDS: Carbidopa/Levodopa 25-100 mg Tablet PO SCH ×3 (05:17→20:02)
[2019-03-16 05:37] LABS: Anion Gap 12 mmol/L (10-20); BUN (Urea Nitrogen) 31 mg/dL (8.4-25.7); Calc. Creatinine Clearance 85 mL/min (70-130); Calcium 8.3 mg/dL (7.8-10.44); Carbon Dioxide 23 mmol/L (23-31); Chloride 112 mmol/L (98-107); Estimated GFR-MDRD 64; Glucose 108 mg/dL (83-110); Potassium 3.1 mmol/L (3.5-5.1); Sodium 144 mmol/L (136-145)
[2019-03-16 05:40] LABS: Band 1 % (5-11); Hemoglobin 12.4 g/dL (14.0-18.0); Hypochromia SLIGHT = 6-15 cells (100X) (0-5/hpf); Lymphocytes 3 % (21-51); MDiff Complete? YES; Mean Corpuscular HGB CONC 31.2 g/dL (32.0-36.0); Mean Corpuscular Hemoglobin 29.9 pg (27.0-31.0); Mean Platelet Volume 8.8 fL (7.4-10.4); Monocytes 7 % (0-10); Neutrophil 89 % (42-75); Platelet Count 364 thou/uL (130-400); Platelet Morphology Comment Appears Adequate; RBC Distribution Width 13.4 % (11.5-14.5); Red Blood Cell (RBC) Count 4.13 mill/uL (4.70-6.10); White Blood Cell (WBC) Count 26.6 thou/uL (4.8-10.8)
[2019-03-16] MEDS: Labetalol HCl 100 MG/20 ML VIAL SLOW IVP PRN (06:28)
--- NOTE | 2019-03-16 08:53 | PRG ---
DATE OF SERVICE: 03/15/2019 SUBJECTIVE: Claude Mitchell is making small steps every day. He is a little more alert each day and today, he was trying to write a note to his and interacting with his . OBJECTIVE: VITAL SIGNS: Heart rate 70, blood pressure 155/79, respiratory rate is 18 LUNGS: Clear. HEART: Regular rhythm. ABDOMEN: Soft. EXTREMITIES: Without edema or asymmetry. LABORATORY DATA: White count 25.4, hemoglobin 11.8, platelets 328. Sodium 145, potassium 3, chloride 110, bicarb 24, BUN 32, creatinine 1.14. IMPRESSION: 1. Status post respiratory failure and mechanical ventilation with a stroke. He is status post tPA. Swallowing dysfunction, status post PEG. 2. Status post extubation with vocal cord edema and inability to handle secretions leading to reintubation and trach. 3. Atrial fibrillation converted to sinus rhythm. 4. Hypertension . Continue supportive care measures. The next step would be LTAC I would think. Job ID: [id number] MTDD
[2019-03-16] MEDS ORDERED: Lisinopril 5 MG TAB PO SCH (09:00)
[2019-03-16] MEDS ORDERED: Potassium Chloride 20 MEQ TAB PO SCH (09:30)
[2019-03-16] MEDS ORDERED: Enoxaparin Sodium 100 MG/ML SYRINGE SC SCH (09:30)
--- NOTE | 2019-03-16 10:04 | PRG ---
DATE OF SERVICE: 03/16/2019 SUBJECTIVE: Mr. Mitchell is in bed, resting now. The patient's stated he was following directions previously, but now he is sleeping. OBJECTIVE: VITAL SIGNS: His pulse is in the 70s and sinus rhythm. LUNGS: Clear. CARDIAC: Normal S1. Normal S2. ABDOMEN: Soft and nontender. ASSESSMENT: 1. Paroxysmal atrial fibrillation, maintaining sinus rhythm. 2. Hypertension. 3. Previous stroke. PLAN: 1. Reduce the amiodarone to 400 mg twice a day. 2. I think when he goes to rehab, reduce the amiodarone to 200 mg twice a day for 1 month, then back to 200 mg once a day. 3. He is also anticoagulated, which he should be continued on. His renal function is now improved with a creatinine of 1.12, GFR 64. We will go ahead and increase enoxaparin to 100 mg every 12 hours, could also be changed to Eliquis 5 mg twice a day. Job ID: [id number]
[2019-03-16] MEDS: Acetaminophen 650 MG/20.3 ML UDCUP PER TUBE PRN (10:06)
[2019-03-16] MEDS: Bupropion 150 MG SR TAB PO SCH (10:07)
[2019-03-16] MEDS: Multivits W-Minerals Liquid 15mL UDCUP PER TUBE SCH (10:07)
[2019-03-16] MEDS: Amlodipine 5 MG TAB PO SCH (10:08)
[2019-03-16] MEDS: Famotidine 20 MG TAB PO SCH ×2 (10:08→19:53)
[2019-03-16] MEDS: Metoprolol Tartrate 100 MG TAB PER TUBE SCH ×2 (10:11→19:53)
[2019-03-16] MEDS: Brimonidine Tartrate 0.2% Ophth Soln 5 ml Bottle EA EYE SCH ×2 (10:11→19:54)
[2019-03-16] MEDS: Enoxaparin Sodium 80 MG/0.8 ML SYRINGE SC SCH (11:23)
[2019-03-16] MEDS: Amiodarone 200 MG TAB PO SCH (11:24)
[2019-03-16] MEDS ORDERED: Amiodarone 200 MG TAB PO SCH ×2 (11:30→21:00)
[2019-03-16] MEDS: Scopolamine 1.5 mg/72 hour Patch TD SCH (12:11)
--- NOTE | 2019-03-16 13:36 | PDOC.HOSPP ---
- Subjective Subjective: Seen and examined. He is making daily progress with his left side daily. I am optimistic of a good recovery, though it will be a long course. Patient mouthing words, unable to vocalize much on T-piece this AM. May be able to vocalize better if he can tolerate capping. His pulmonary status also continues to improve. - Objective Vital Signs & Weight: Vital Signs (12 hours) Temp Pulse Pulse Pulse Resp BP BP 03/16/19 10:47 80 22 H 03/16/19 10:10 82 136/75 03/16/19 10:08 82 136/72 03/16/19 09:38 79 74 136/67 03/16/19 08:00 99 F 03/16/19 07:44 82 26 H 03/16/19 06:28 77 03/16/19 04:00 98.5 F BP Pulse Ox 03/16/19 10:47 94 L 03/16/19 10:10 03/16/19 10:08 03/16/19 09:38 117/53 L 03/16/19 08:00 03/16/19 07:44 94 L 03/16/19 06:28 03/16/19 04:00 Weight Admit Weight 231 lb 7.766 oz Weight 224 lb 6.889 oz Most Recent Monitor Data Heart Rate from ECG 71 NIBP 104/57 NIBP BP-Mean 72 Respiration from ECG 23 SpO2 97 I&O: 03/15/19 03/16/19 03/17/19 06:59 06:59 06:59 Intake Total 2780 2936 330 Output Total 2733 2801 235 Balance 47 135 95 Result Diagrams: 03/16/19 05:06 03/16/19 05:06 Additional Labs: Accuchecks 03/16/19 03:34 POC Glucose 101 Hospitalist ROS - Review of Systems ROS unobtainable: due to endotracheal tube - Medication Medications: Active Medications Generic Name Dose Route Start Last Admin Trade Name Freq PRN Reason Stop Dose Admin Acetaminophen 650 mg 03/04/19 13:18 03/11/19 16:48 Tylenol IA 650 mg Q4H PRN Administration Headache/Fever/Mild Pain (1-3) Acetaminophen 650 mg 03/15/19 04:04 03/16/19 10:06 Tylenol Elixir PER TUBE 650 mg Q6H PRN Administration Mild Pain (1-3) Albuterol/Ipratropium 3 ml 03/11/19 15:00 03/16/19 10:47 Duoneb NEB 3 ml [id number] LOUIE Administration Amlodipine Besylate 5 mg 03/15/19 09:00 03/16/19 10:08 Norvasc PO 5 mg DAILY LOUIE Administration Aspirin 325 mg 03/13/19 21:00 03/15/19 21:07 Aspirin PER TUBE 325 mg HS LOUIE Administration Bisacodyl 10 mg 03/04/19 13:18 03/11/19 15:53 Dulcolax IA 10 mg DAILYPRN PRN Administration Constipation Brimonidine Tartrate 1 drop 03/05/19 21:00 03/16/19 10:11 Alphagan 0.2% Ophth Soln EA EYE 1 drop BID LOUIE Administration Bupropion HCl 150 mg 03/06/19 09:00 03/16/19 10:07 Wellbutrin Sr PO 150 mg DAILY LOUIE Administration Carbidopa/Levodopa 1 tab 03/08/19 14:00 03/16/19 12:13 Sinemet 25-100 PO 1 tab Q8HR LOUIE Administration Famotidine 20 mg 03/13/19 09:00 03/16/19 10:08 Pepcid PO 20 mg BID LOUIE Administration Fish Oil 1,000 mg 03/09/19 21:00 03/15/19 21:06 Fish Oil PO 1,000 mg HS LOUIE Administration Guaifenesin/Dextromethorphan 10 ml 03/12/19 10:00 03/16/19 10:07 Robitussin Dm PER TUBE 10 ml 0400,1000,1600,2200 LOUIE Administration Hydralazine HCl 10 mg 03/04/19 13:18 03/14/19 14:09 Apresoline SLOW IVP 10 mg Q4H PRN Administration SBP > 180 or DBP > 105 Piperacillin Sod/Tazobactam 100 mls @ 200 mls/hr 03/11/19 12:00 03/16/19 12: 10 Sod 3.375 gm/ Sodium Chloride IVPB 100 mls Q6HR LOUIE Administration Vancomycin HCl 1.25 gm/ Sodium 250 mls @ 166.667 mls/hr 03/13/19 02:00 01:28 Chloride IVPB 250 mls 0200,1400 LOUIE Administration Iron/Minerals/Multivitamins 15 ml 03/08/19 09:00 03/16/19 10:07 Certa Nickolas Liquid PER TUBE 15 ml DAILY LOUIE Administration Labetalol HCl 10 mg 03/04/19 13:18 03/16/19 06:28 Normodyne SLOW IVP 10 mg Q10MIN PRN Administration SBP > 180 or DBP > 105 Lisinopril 5 mg 03/16/19 09:00 03/16/19 10:10 Zestril PO 5 mg DAILY LOUIE Administration Metoclopramide HCl 10 mg 03/14/19 12:00 03/16/19 10:12 Reglan IVP Not Given Q6HR LOUIE Metoprolol Tartrate 100 mg 03/13/19 09:00 03/16/19 10:11 Lopressor PER TUBE 100 mg BID LOUIE Administration Rosuvastatin Calcium 20 mg 03/04/19 21:00 03/15/19 21:07 Crestor PO 20 mg HS LOUIE Administration Scopolamine 1.5 mg 03/07/19 14:00 03/16/19 12:11 Transderm Scop TD 1.5 mg Q3D LOUIE Administration Sodium Chloride 10 ml 03/07/19 21:00 03/16/19 10:11 Flush - Normal Saline IVF 10 ml Q12HR LOUIE Administration Sodium Chloride 10 ml 03/07/19 13:17 03/15/19 05:50 Flush - Normal Saline IVF 10 ml PRN PRN Administration Saline Flush - Exam General Appearance: NAD, awake alert Eye: anicteric sclera ENT: no oropharyngeal lesions, moist mucosa Neck: supple, symmetric, no lymphadenopathy Heart: no murmur, no gallops, no rubs, irregular Respiratory: no rales, no tachypnea, rhonchi, wheezes Gastrointestinal: soft, non-tender, non-distended, no guarding, no rigidity Extremities: 1+ LE edema (Improving) Skin: no lesions, no rashes Neurological: normal sensation to touch, no new deficit, speech deficit ( Follows simple commands and mouths words, which is a good improvement.) Neurological - other findings: Left sided motor improved again +4/5. 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 Code(s): Z92.82 - S/P ADMN TPA IN DIFF FAC W/N LAST 24 HR BEF ADM TO CRNT FAC Status: Acute (5) Dyslipidemia Code(s): E78.5 - HYPERLIPIDEMIA, UNSPECIFIED Status: Chronic (6) Glaucoma Code(s): H40.9 - UNSPECIFIED GLAUCOMA Status: Chronic (7) Hypertension Code(s): I10 - ESSENTIAL (PRIMARY) HYPERTENSION Status: Chronic (8) Sepsis Code(s): A41.9 - SEPSIS, UNSPECIFIED ORGANISM Status: Acute (9) Pneumonia Code(s): J18.9 - PNEUMONIA, UNSPECIFIED ORGANISM Status: Acute (10) CAPRICE (acute kidney injury) Code(s): N17.9 - ACUTE KIDNEY FAILURE, UNSPECIFIED Status: Acute - Plan Plan: Pulm/ CC consult, recommendations appreciated Cardiology consult, recommendations appreciated Nephrology consult, recommendations appreciated Neurology consult, recommendations appreciated Surgery consult, recommendations appreciated Neurologically made great improvements over the past few days BP highs and lows, adjusting per cardiology Continue broad spectrum ABX Gram stain resp secretions with mixed daron including gram neg rods Blood Cx negative on 03/08 Trach site Cx Afib with RVR - improved on current regimen Continue rate control vs rhythm control agents per cardiology May transition to Eliquis, IV anticoagulation with lovenox, pharmacy to renally dose Renal function improved Renally dose all medications, per pharmacy S/p trach and peg on 03/10 Will likely need LTAC placement when medically optimized CVA regimen: -Statin -ASA -Kory inh MRI brain noted Echo noted US carotid noted BP control PT/ OT eval and treat Replace electrolytes as needed GI and DVT PPX
[2019-03-16] MEDS: Enoxaparin Sodium 100 MG/ML SYRINGE SC SCH (19:52)
[2019-03-16] MEDS: Rosuvastatin 20 MG TAB PO SCH (19:53)
[2019-03-16] MEDS: Aspirin 325 MG TAB PER TUBE SCH (19:53)
[2019-03-16] MEDS: Fish Oil 1,000 MG CAP PO SCH (19:53)
[2019-03-16] MEDS ORDERED: Clopidogrel Bisulfate 75 MG TAB ONE (19:56)
[2019-03-17] MEDS: Vancomycin HCl 1.25 GM in Sodium Chloride 0.9% 250 ML 250 ML IVPB SCH ×2 (01:57→14:17)
[2019-03-17] MEDS: Labetalol HCl 100 MG/20 ML VIAL SLOW IVP PRN (04:12)
[2019-03-17] MEDS: Guaifenesin DM 100-10/5 ML UDCUP PER TUBE SCH ×4 (05:14→21:39)
[2019-03-17] MEDS: hydrALAZINE 20 MG/ML VIAL SLOW IVP PRN (05:15)
[2019-03-17] MEDS: Carbidopa/Levodopa 25-100 mg Tablet PO SCH ×3 (05:15→21:21)
[2019-03-17] MEDS: Piperacillin/Tazobactam 3.375 GM in Sodium Chloride 0.9% 100 ML IVPB SCH ×4 (05:15→23:48)
[2019-03-17] MEDS: Metoclopramide HCl 10 MG/2 ML VIAL IVP SCH (05:38)
[2019-03-17 07:08] LABS: Hemoglobin 12.7 g/dL (14.0-18.0); Mean Corpuscular HGB CONC 32.7 g/dL (32.0-36.0); Mean Corpuscular Volume 94.9 fL (78.0-98.0); Mean Platelet Volume 8.6 fL (7.4-10.4); Platelet Count 373 thou/uL (130-400); RBC Distribution Width 13.4 % (11.5-14.5); Red Blood Cell (RBC) Count 4.09 mill/uL (4.70-6.10); White Blood Cell (WBC) Count 27.7 thou/uL (4.8-10.8)
[2019-03-17 07:37] LABS: Band 17 % (5-11); Eosinophils 3 % (0-10); Lymphocytes 7 % (21-51); MDiff Complete? YES; Metamyelocyte 1 % (0-0); Monocytes 6 % (0-10); Neutrophil 66 % (42-75); RBC Morphology Normal
[2019-03-17 08:13] LABS: Anion Gap 14 mmol/L (10-20); BUN (Urea Nitrogen) 33 mg/dL (8.4-25.7); Calc. Creatinine Clearance 86 mL/min (70-130); Calcium 8.4 mg/dL (7.8-10.44); Carbon Dioxide 23 mmol/L (23-31); Chloride 113 mmol/L (98-107); Estimated GFR-MDRD 66; Glucose 104 mg/dL (83-110); Sodium 147 mmol/L (136-145)
[2019-03-17 08:22] LABS: Potassium 2.9 mmol/L (3.5-5.1)
[2019-03-17] MEDS ORDERED: Potassium Chloride 20 MEQ TAB PO SCH ×2 (09:00→16:00)
[2019-03-17] MEDS: Amlodipine 5 MG TAB PO SCH (09:15)
[2019-03-17] MEDS: Famotidine 20 MG TAB PO SCH ×2 (09:15→21:22)
[2019-03-17] MEDS: Metoprolol Tartrate 100 MG TAB PER TUBE SCH ×2 (09:15→21:21)
[2019-03-17] MEDS: Enoxaparin Sodium 100 MG/ML SYRINGE SC SCH ×2 (09:15→21:21)
[2019-03-17] MEDS: Bupropion 150 MG SR TAB PO SCH (09:20)
[2019-03-17] MEDS: Multivits W-Minerals Liquid 15mL UDCUP PER TUBE SCH (09:21)
[2019-03-17] MEDS: Lisinopril 5 MG TAB PER TUBE SCH (09:22)
[2019-03-17] MEDS: Amiodarone 200 MG TAB PO SCH ×2 (09:23→21:21)
[2019-03-17] MEDS: Brimonidine Tartrate 0.2% Ophth Soln 5 ml Bottle EA EYE SCH ×2 (09:25→21:21)
--- NOTE | 2019-03-17 09:48 | PRG ---
DATE OF SERVICE: 03/17/2019 SUBJECTIVE: Mr. Mitchell is awake and alert, looking around the room. OBJECTIVE: VITAL SIGNS: Still blood pressure was elevated, most recently 160 systolic. Pulse 78 and regular. LUNGS: Clear. CARDIAC: Normal S1 and S2. ABDOMEN: Obese. Nontender. EXTREMITIES: No clubbing or cyanosis. There is no significant edema. SKIN: Warm and dry. PERTINENT LABORATORY DATA: Potassium is still low at 2.9. Sodium is 147. ASSESSMENT: 1. Paroxysmal atrial fibrillation, maintaining sinus rhythm. 2. Hypertension. 3. Hypokalemia. PLAN: 1. Reduce amiodarone to 200 mg twice a day. 2. Continue to replete potassium. 3. Increase lisinopril. 4. Dr. Massey will be available this weekend, if needed. Job ID: [id number]
--- NOTE | 2019-03-17 09:50 | PRG ---
DATE OF SERVICE: 03/17/2019 SUBJECTIVE: The patient is doing extremely well. He is off the ventilator, on trach collar. OBJECTIVE: VITAL SIGNS: His temperature is 99.3, pulse 74, blood pressure 175/83, and O2 saturation 95%. 24-hour intake, 2936; output, 2801. HEENT: Unremarkable. NECK: No adenopathy or JVD. Trach in good position. Some bloody secretions. CARDIAC: S1 and S2, regular. ABDOMEN: Soft. EXTREMITIES: No clubbing, cyanosis, or edema. LABORATORY DATA: White blood cell count 27.7, hematocrit 38.8, and platelet count 373. Sodium 147, potassium 2.9, chloride 113, CO2 of 23, BUN 33, creatinine 1.1, glucose 104. ASSESSMENT: 1. Status post respiratory failure, requiring mechanical ventilation. 2. Status post tracheostomy placement. 3. Hypernatremia. 4. Hypokalemia. 5. Atrial fibrillation. PLAN: 1. Continue trach collar trials. 2. Continuing antibiotics for the time being. 3. Potassium supplementation has been ordered by Dr. Savage. 4. Consider moving to the [facility] in the next day or two. Job ID: [id number]
--- NOTE | 2019-03-17 12:51 | PDOC.HOSPP ---
- Subjective Subjective: Seen and examined. at bedside, questions were asked - all answered in detail. Patients happy with progression on plan of care. Plan to have trach size adjusted today and possible capping. More somnolent early this AM. Left motor continues to improve. - Objective Vital Signs & Weight: Vital Signs (12 hours) Temp Pulse Resp Pulse Ox 03/17/19 11:04 64 23 H 97 03/17/19 09:22 74 03/17/19 09:15 74 03/17/19 09:00 99.2 F 03/17/19 08:00 99.2 F 100 03/17/19 07:24 96 03/17/19 07:22 74 24 H 96 03/17/19 04:12 74 03/17/19 04:00 99.3 F Weight Admit Weight 231 lb 7.766 oz Weight 225 lb 15.581 oz Most Recent Monitor Data Heart Rate from ECG 67 NIBP 167/76 NIBP BP-Mean 106 Respiration from ECG 28 SpO2 97 I&O: 03/16/19 03/17/19 03/18/19 06:59 06:59 06:59 Intake Total 2936 3232 120 Output Total 2801 2575 420 Balance 135 657 -300 Result Diagrams: 03/17/19 06:30 03/17/19 06:30 Hospitalist ROS - Review of Systems ROS unobtainable: due to endotracheal tube - Medication Medications: Active Medications Generic Name Dose Route Start Last Admin Trade Name Freq PRN Reason Stop Dose Admin Acetaminophen 650 mg 03/04/19 13:18 03/11/19 16:[address] 650 mg Q4H PRN Administration Headache/Fever/Mild Pain (1-3) Acetaminophen 650 mg 03/15/19 04:04 03/16/19 10:06 Tylenol Elixir PER TUBE 650 mg Q6H PRN Administration Mild Pain (1-3) Albuterol/Ipratropium 3 ml 03/11/19 15:00 03/17/19 11:04 Duoneb NEB 3 ml [id number] LOUIE Administration Amiodarone HCl 200 mg 03/17/19 09:00 03/17/19 09:23 Cordarone PO 200 mg BID LOUIE Administration Amlodipine Besylate 5 mg 03/15/19 09:00 03/17/19 09:15 Norvasc PO 5 mg DAILY LOUIE Administration Bisacodyl 10 mg 03/04/19 13:18 03/11/19 15:[address] 10 mg DAILYPRN PRN Administration Constipation Brimonidine Tartrate 1 drop 03/05/19 21:00 03/17/19 09:25 Alphagan 0.2% Ophth Soln EA EYE 1 drop BID LOUIE Administration Bupropion HCl 150 mg 03/06/19 09:00 03/17/19 09:20 Wellbutrin Sr PO 150 mg DAILY LOUIE Administration Carbidopa/Levodopa 1 tab 03/08/19 14:00 03/17/19 05:15 Sinemet 25-100 PO 1 tab Q8HR LOUIE Administration Enoxaparin Sodium 100 mg 03/16/19 21:00 03/17/19 09:15 Lovenox SC 100 mg 0900,2100 LOUIE Administration Famotidine 20 mg 03/13/19 09:00 03/17/19 09:15 Pepcid PO 20 mg BID LOUIE Administration Fish Oil 1,000 mg 03/09/19 21:00 03/16/19 19:53 Fish Oil PO 1,000 mg HS LOUIE Administration Guaifenesin/Dextromethorphan 10 ml 03/12/19 10:00 03/17/19 09:21 Robitussin Dm PER TUBE 10 ml 0400,1000,1600,2200 LOUIE Administration Hydralazine HCl 10 mg 03/04/19 13:18 03/17/19 05:15 Apresoline SLOW IVP 10 mg Q4H PRN Administration SBP > 180 or DBP > 105 Piperacillin Sod/Tazobactam 100 mls @ 200 mls/hr 03/11/19 12:00 03/17/19 05: 15 Sod 3.375 gm/ Sodium Chloride IVPB 100 mls Q6HR LOUIE Administration Vancomycin HCl 1.25 gm/ Sodium 250 mls @ 166.667 mls/hr 03/13/19 02:00 01:57 Chloride IVPB 250 mls 0200,1400 LOUIE Administration Iron/Minerals/Multivitamins 15 ml 03/08/19 09:00 03/17/19 09:21 Certa Nickolas Liquid PER TUBE 15 ml DAILY LOUIE Administration Labetalol HCl 10 mg 03/04/19 13:18 03/17/19 04:12 Normodyne SLOW IVP 10 mg Q10MIN PRN Administration SBP > 180 or DBP > 105 Lisinopril 10 mg 03/17/19 09:00 03/17/19 09:22 Zestril PER TUBE 10 mg DAILY LOUIE Administration Metoprolol Tartrate 100 mg 03/13/19 09:00 03/17/19 09:15 Lopressor PER TUBE 100 mg BID LOUIE Administration Rosuvastatin Calcium 20 mg 03/04/19 21:00 03/16/19 19:53 Crestor PO 20 mg HS LOUIE Administration Scopolamine 1.5 mg 03/07/19 14:00 03/16/19 12:11 Transderm Scop TD 1.5 mg Q3D LOUIE Administration Sodium Chloride 10 ml 03/07/19 21:00 03/17/19 09:23 Flush - Normal Saline IVF 10 ml Q12HR LOUIE Administration Sodium Chloride 10 ml 03/07/19 13:17 03/15/19 05:50 Flush - Normal Saline IVF 10 ml PRN PRN Administration Saline Flush - Exam General Appearance: NAD, awake alert Eye: anicteric sclera ENT: no oropharyngeal lesions, moist mucosa Neck: supple, symmetric, no lymphadenopathy Heart: no murmur, no gallops, no rubs Respiratory: CTAB, no wheezes, no rales, no ronchi Gastrointestinal: soft, non-tender, non-distended, normal bowel sounds, no guarding, no rigidity Extremities: 1+ LE edema Skin: no lesions, no rashes Neurological - other findings: Left motor improving +4/5. 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 Code(s): Z92.82 - S/P ADMN TPA IN DIFF FAC W/N LAST 24 HR BEF ADM TO CRNT FAC Status: Acute (5) Dyslipidemia Code(s): E78.5 - HYPERLIPIDEMIA, UNSPECIFIED Status: Chronic (6) Glaucoma Code(s): H40.9 - UNSPECIFIED GLAUCOMA Status: Chronic (7) Hypertension Code(s): I10 - ESSENTIAL (PRIMARY) HYPERTENSION Status: Chronic (8) Sepsis Code(s): A41.9 - SEPSIS, UNSPECIFIED ORGANISM Status: Acute (9) Pneumonia Code(s): J18.9 - PNEUMONIA, UNSPECIFIED ORGANISM Status: Acute (10) CAPRCIE (acute kidney injury) Code(s): N17.9 - ACUTE KIDNEY FAILURE, UNSPECIFIED Status: Acute - Plan Plan: Pulm/ CC consult, recommendations appreciated Cardiology consult, recommendations appreciated Nephrology consult, recommendations appreciated Neurology consult, recommendations appreciated Surgery consult, recommendations appreciated Neurologically made great improvements over the past few days Plan for LTAC when medically optimized and bed available BP highs and lows, adjusting per cardiology Continue broad spectrum ABX Gram stain resp secretions with mixed daron including gram neg rods Blood Cx negative on 03/08 Trach site Cx Afib with RVR - improved on current regimen Continue rate control vs rhythm control agents per cardiology May transition to Eliquis, IV anticoagulation with lovenox, pharmacy to renally dose Renal function improved Renally dose all medications, per pharmacy S/p trach and peg on 03/10 Will likely need LTAC placement when medically optimized CVA regimen: -Statin -ASA -Kory inh MRI brain noted Echo noted US carotid noted BP control PT/ OT eval and treat Replace electrolytes as needed GI and DVT PPX
[2019-03-17 14:58] VITALS: BMI 35.4
[2019-03-17] MEDS: Acetaminophen 650 MG/20.3 ML UDCUP PER TUBE PRN (16:20)
[2019-03-17] MEDS: Aspirin Chewable 81 MG TAB PER TUBE SCH (21:22)
[2019-03-17] MEDS: Rosuvastatin 20 MG TAB PO SCH (21:22)
[2019-03-17] MEDS: Fish Oil 1,000 MG CAP PO SCH (21:22)
[2019-03-17 23:38] LABS: Anion Gap 11 mmol/L (10-20); BUN (Urea Nitrogen) 31 mg/dL (8.4-25.7); Calc. Creatinine Clearance 74 mL/min (70-130); Carbon Dioxide 25 mmol/L (23-31); Chloride 114 mmol/L (98-107); Estimated GFR-MDRD 55; Glucose 113 mg/dL (83-110); Magnesium 2.1 mg/dL (1.6-2.6); Phosphorus 3.2 mg/dL (2.3-4.7); Potassium 3.2 mmol/L (3.5-5.1); Sodium 147 mmol/L (136-145)
--- NOTE | 2019-03-17 23:46 | PDOC.EVN ---
Event Note - Event Note Event Note: Patient had a 16 beat run of VT. EKG shows sinus with QTc of 497. K+ improved. Mg++ is 2.1. Amiodarone was recently decreased by Dr. Savage. Patient was asymptomatic.
[2019-03-18] MEDS: hydrALAZINE 20 MG/ML VIAL SLOW IVP PRN ×2 (00:21→04:17)
[2019-03-18] MEDS: Vancomycin HCl 1.25 GM in Sodium Chloride 0.9% 250 ML 250 ML IVPB SCH ×2 (01:31→14:33)
[2019-03-18] MEDS: Guaifenesin DM 100-10/5 ML UDCUP PER TUBE SCH ×2 (04:11→11:05)
[2019-03-18] MEDS: Piperacillin/Tazobactam 3.375 GM in Sodium Chloride 0.9% 100 ML IVPB SCH ×3 (05:27→17:52)
[2019-03-18] MEDS: Carbidopa/Levodopa 25-100 mg Tablet PO SCH ×3 (05:27→21:27)
[2019-03-18 06:47] LABS: Anion Gap 12 mmol/L (10-20); BUN (Urea Nitrogen) 29 mg/dL (8.4-25.7); Calc. Creatinine Clearance 80 mL/min (70-130); Calcium 8.1 mg/dL (7.8-10.44); Carbon Dioxide 23 mmol/L (23-31); Chloride 114 mmol/L (98-107); Estimated GFR-MDRD 60; Glucose 126 mg/dL (83-110); Potassium 3.8 mmol/L (3.5-5.1); Sodium 145 mmol/L (136-145)
[2019-03-18 06:54] LABS: Band 7 % (5-11); Hemoglobin 12.3 g/dL (14.0-18.0); Lymphocytes 7 % (21-51); MDiff Complete? YES; Mean Corpuscular HGB CONC 33.9 g/dL (32.0-36.0); Mean Corpuscular Hemoglobin 32.3 pg (27.0-31.0); Mean Corpuscular Volume 95.4 fL (78.0-98.0); Mean Platelet Volume 8.9 fL (7.4-10.4); Monocytes 4 % (0-10); Neutrophil 82 % (42-75); Platelet Count 429 thou/uL (130-400); RBC Distribution Width 13.4 % (11.5-14.5); White Blood Cell (WBC) Count 27.3 thou/uL (4.8-10.8)
--- NOTE | 2019-03-18 09:47 | PRG ---
DATE OF SERVICE: 03/18/2019 SUBJECTIVE: The patient is seen and examined at the bedside. There was an event note by Zuleika Velásquez yesterday that he had 16 beats of ventricular tachycardia. His amiodarone apparently was recently decreased to 200 mg twice a day by Dr. Savage. The patient was asymptomatic. OBJECTIVE: VITAL SIGNS: Blood pressure is 158/77, pulse is 80, temperature is 99.0, maximal temperature is 99.4, pulse oximetry is 94%. HEENT: His head is atraumatic and normocephalic. Conjunctivae are injected. Sclerae are nonicteric. NECK: Tracheostomy tube is in place. LUNGS: Bilateral rales. No wheezing. HEART: S1 and S2 normal. No S3. No S4. ABDOMEN: Soft, nontender, somewhat distended. Bowel sounds present. EXTREMITIES: 1+ peripheral edema, similar bilaterally. NEUROLOGICAL: Left-sided weakness present. He does not follow my commands. LABORATORY DATA: White count of 27.3, hemoglobin 12.3, hematocrit 36.3, and platelet count 429,000. Sodium of 145, potassium 3.8, chloride 114, CO2 of 23, BUN 29, creatinine 1.18, glucose 126, calcium 8.1, magnesium 2.1 that is from last night and potassium was 3.2. IMPRESSION: 1. Acute respiratory failure with hypoxia, secondary to pneumonia. 2. Sepsis. 3. Cerebrovascular accident in middle cerebral artery distribution on the right side with left-sided weakness. 4. Encephalopathy. 5. Status post tPA. 6. Hypokalemia. 7. Acute kidney injury, acute, improved. 8. Hypertension. 9. Short run of asymptomatic ventricular tachycardia. PLAN: We will continue his potassium replacement protocol. He had 40 mEq of KCl in IV last night after he had ventricular tachycardia. , so he is scheduled for 20 mEq of KCl this morning. We will check his levels periodically. Continue both antibiotics, Zosyn and vancomycin. Continue DuoNebs. We will continue full dose of Lovenox 100 mg subcutaneously every 12 hours, and we will follow subspecialist recommendation regarding switching him to anticoagulant like Eliquis. His run of ventricular tachycardia will be addressed with Cardiology Service. We will continue the rest of the regimen and will work towards setting him out to LTAC as soon as he is more stable. Job ID: [id number]
[2019-03-18] MEDS: Potassium Chloride 20 MEQ TAB PO SCH (10:23)
[2019-03-18] MEDS: Amlodipine 5 MG TAB PO SCH (10:23)
[2019-03-18] MEDS: Enoxaparin Sodium 100 MG/ML SYRINGE SC SCH ×2 (10:23→21:27)
[2019-03-18] MEDS: Lisinopril 5 MG TAB PER TUBE SCH (10:24)
[2019-03-18] MEDS: Metoprolol Tartrate 100 MG TAB PER TUBE SCH ×2 (10:24→21:27)
[2019-03-18] MEDS: Amiodarone 200 MG TAB PO SCH ×2 (10:24→21:27)
[2019-03-18] MEDS: Famotidine 20 MG TAB PO SCH ×2 (10:24→21:27)
[2019-03-18] MEDS: Multivits W-Minerals Liquid 15mL UDCUP PER TUBE SCH (11:05)
[2019-03-18] MEDS: Brimonidine Tartrate 0.2% Ophth Soln 5 ml Bottle EA EYE SCH ×2 (11:05→22:55)
[2019-03-18] MEDS: Bupropion 150 MG SR TAB PO SCH (11:05)
[2019-03-18] MEDS ORDERED: Furosemide 40 MG/4 ML VIAL SLOW IVP SCH (13:45)
--- NOTE | 2019-03-18 14:09 | RAD ---
Portable chest: HISTORY: Tachypnea COMPARISON: 03/11/2019 FINDINGS:There are new confluent infiltrates in both upper lung hutchison today. Mild cardiomegaly again noted. Tracheostomy device again seen. Bilateral effusions. Left basilar atelectasis or infiltrate. IMPRESSION:New confluent infiltrates in both upper lungs. Left basilar atelectasis and/or infiltrate with small effusions.
[2019-03-18] MEDS: Dextrose 5% in Water 1,000 ML IV SCH (14:18)
--- NOTE | 2019-03-18 14:21 | PRG ---
DATE OF SERVICE: 03/18/2019 SERVICE: Pulmonary Medicine. INTERVAL HISTORY: The patient is doing poorly from a respiratory standpoint. He is tachypneic. His oxygen requirements have gone up a little bit. He has a toxic appearance about him, and he developed significant diaphoresis. He cannot provide any additional elements of the history because of his stroke. Otherwise, there has been no interval change to his condition. PHYSICAL EXAMINATION: VITAL SIGNS: Afebrile, currently. His T-max overnight was 100.4. Pulse 71, blood pressure 160/85, respirations 36, saturation 93%, currently with 28% FiO2. GENERAL: The patient is awake. He is alert. He has [id number] respiratory distress. HEENT: Normocephalic and atraumatic. Sclerae white. Conjunctivae pink. Oral mucosa is moist without lesions. LUNGS: Rhonchi are extensive. There are some dependent crackles and wheezing present. He has extensive secretions coming from his tracheostomy tube. HEART: Normal rate. Regular. ABDOMEN: Soft. Distended. Bowel sounds are present. No rebound or guarding is appreciated. MUSCULOSKELETAL: No cyanosis or clubbing. Diffuse 2+ edema is present. LABORATORY DATA: WBC 27.3, hemoglobin 12.3, and platelets 429,000. Band count is dropping. INR 1.0. Potassium 3.8. Basic metabolic profile is otherwise unremarkable. Sodium is dropping to 145. Blood cultures x2 and respiratory cultures are unremarkable, though the last time it was cultured was on the 7th. ASSESSMENT: 1. Acute hypoxic respiratory failure. 2. Hypernatremia, resolving. 3. Atrial fibrillation with rapid ventricular response. 4. Cerebrovascular accident, status post tissue plasminogen activator with now permanent debility. DISCUSSION AND PLAN: I am going to interrupt his tube feeds for the time being. The secretions coming from the tracheostomy have a lowry appearance to them. There is a possibility, he had a little bit of acid reflux build into his lungs. I am going to get a sputum culture, blood culture x2, urinalysis, urine culture, and put him on broad-spectrum antibiotics. He is significantly volume overloaded. I will begin to diurese him through time. Potassium will be replaced. This patient is critically ill. I will watch his respiratory status very closely. If he takes a turn for the worse, we will certainly be transitioning him out of the IMCU back to the ICU and put him on positive pressure ventilation. Job ID: [id number]
[2019-03-18] MEDS: Fish Oil 1,000 MG CAP PO SCH (21:26)
[2019-03-18] MEDS: Aspirin Chewable 81 MG TAB PER TUBE SCH (21:27)
[2019-03-18] MEDS: Rosuvastatin 20 MG TAB PO SCH (21:27)
[2019-03-18] MEDS: Acetaminophen 650 MG/20.3 ML UDCUP PER TUBE PRN (22:55)
[2019-03-19] MEDS: Piperacillin/Tazobactam 3.375 GM in Sodium Chloride 0.9% 100 ML IVPB SCH ×3 (00:15→13:52)
[2019-03-19] MEDS: Vancomycin HCl 1.25 GM in Sodium Chloride 0.9% 250 ML 250 ML IVPB SCH ×2 (02:29→13:53)
[2019-03-19 04:03] LABS: Mean Corpuscular HGB CONC 34.3 g/dL (32.0-36.0); Mean Corpuscular Hemoglobin 33.2 pg (27.0-31.0); Mean Corpuscular Volume 96.8 fL (78.0-98.0); Mean Platelet Volume 9.3 fL (7.4-10.4); Platelet Count 426 thou/uL (130-400); RBC Distribution Width 13.7 % (11.5-14.5); Red Blood Cell (RBC) Count 3.32 mill/uL (4.70-6.10); White Blood Cell (WBC) Count 21.7 thou/uL (4.8-10.8)
[2019-03-19 04:17] LABS: Phosphorus 3.7 mg/dL (2.3-4.7)
[2019-03-19 04:18] LABS: Anion Gap 14 mmol/L (10-20); BUN (Urea Nitrogen) 29 mg/dL (8.4-25.7); Calc. Creatinine Clearance 69 mL/min (70-130); Calcium 7.8 mg/dL (7.8-10.44); Carbon Dioxide 22 mmol/L (23-31); Chloride 116 mmol/L (98-107); Estimated GFR-MDRD 51; Glucose 102 mg/dL (83-110); Magnesium 2.2 mg/dL (1.6-2.6); Potassium 3.4 mmol/L (3.5-5.1); Sodium 149 mmol/L (136-145)
[2019-03-19 05:32] LABS: Band 8 % (5-11); Eosinophils 2 % (0-10); Lymphocytes 9 % (21-51); MDiff Complete? YES; Monocytes 8 % (0-10); Neutrophil 72 % (42-75); Platelet Morphology Comment Appears Increased; Reactive Lymphocytes 1 % (0-10); Toxic Granulation SLIGHT
[2019-03-19] MEDS: Carbidopa/Levodopa 25-100 mg Tablet PO SCH ×3 (06:02→20:50)
[2019-03-19] MEDS ORDERED: Furosemide 40 MG/4 ML VIAL SLOW IVP SCH (09:00)
--- NOTE | 2019-03-19 09:22 | PRG ---
DATE OF SERVICE: 03/19/2019 SUBJECTIVE: The patient is seen and examined at the bedside. He is not very responsive to me, although he keeps his eyes open and looks around. His is present in the room during my visit. OBJECTIVE: VITAL SIGNS: Blood pressure is 169/72, pulse is 67, respiratory rate is 28, O2 saturation is 99. He has tracheostomy tube in place. Temperature is 99.4, maximal temperature is 100.3 last night. HEENT: His pupils, the left pupil is measuring approximately 4 mm and the right one is [address] to light. He does not follow my commands, although he keeps his eyes open and looks around. LUNGS: Bilateral rales present and crackles. HEART: S1 and S2 normal. Somewhat distant. No S3. No S4. ABDOMEN: Soft, nondistended. Bowel sounds present. EXTREMITIES: 1+ peripheral edema on both lower extremities. NEUROLOGICAL: He does not follow my commands. LABORATORY DATA: Labs showed white count of 21.7, hemoglobin 11.0, hematocrit 32.1, and platelet count is 426,000. Sodium of 149, potassium 3.4, chloride 116, CO2 is 22, BUN 29, creatinine 1.37. Chest x-ray was done yesterday showed new bilateral infiltrates in both upper lungs. IMPRESSION: 1. Acute respiratory failure with hypoxemia with bilateral new infiltrates in both upper lungs. The patient is on antibiotics, vancomycin and Zosyn. We will continue those two. 2. Sepsis. 3. Cerebrovascular accident in middle cerebral artery distribution on the right side. 4. Encephalopathy. 5. Status post tPA. 6. Hypokalemia, improved. 7. Hypernatremia and hyperchloremia with some evidence of fluid overload. 8. Acute kidney injury. 9. Hypertension. 10. Short run of asymptomatic ventricular tachycardia on amiodarone. PLAN: The patient is going to continue his D5 water at 50 mL/h, IV fluid drip. He is on Lasix per Dr. Luna. His tube feeding is down to 10 mL/hours since we believe that most likely he aspirated. He will continue on the current respiratory treatment with DuoNebs and we will discuss the case with Dr. Luna regarding possible followup CT of the head since his mental condition is not improving much. Job ID: [id number]
[2019-03-19] MEDS: Bupropion 150 MG SR TAB PO SCH (10:22)
[2019-03-19] MEDS: Lisinopril 5 MG TAB PER TUBE SCH (10:23)
[2019-03-19] MEDS: Metoprolol Tartrate 100 MG TAB PER TUBE SCH ×2 (10:24→20:49)
[2019-03-19] MEDS: Amlodipine 5 MG TAB PO SCH (10:24)
[2019-03-19] MEDS: Enoxaparin Sodium 100 MG/ML SYRINGE SC SCH ×2 (10:24→20:48)
[2019-03-19] MEDS: Famotidine 20 MG TAB PO SCH ×2 (10:24→20:49)
[2019-03-19] MEDS: Amiodarone 200 MG TAB PO SCH ×2 (10:24→20:49)
[2019-03-19] MEDS: Potassium Chloride 20 MEQ TAB PO SCH (10:24)
[2019-03-19] MEDS: Brimonidine Tartrate 0.2% Ophth Soln 5 ml Bottle EA EYE SCH ×2 (10:25→20:53)
--- NOTE | 2019-03-19 10:36 | EKG ---
Test Reason : STAT Blood Pressure : / mmHG Vent. Rate : 068 BPM Atrial Rate : 068 BPM P-R Int : 162 ms QRS Dur : 084 ms QT Int : 468 ms P-R-T Axes : 050 031 076 degrees QTc Int : 497 ms Normal sinus rhythm Prolonged QT Abnormal ECG When compared with ECG of 10-MAR-2019 02:18, Sinus rhythm has replaced Atrial fibrillation Vent. rate has decreased BY [address] no longer depressed in Inferior leads ST no longer depressed in Lateral leads Nonspecific T wave abnormality has replaced inverted T waves in Lateral leads Confirmed by DR. Bhavesh MARTIN ([id number]) on 03/19/2019 10:35:42 AM Referred By: ANTHONY Confirmed By:DR. Bhavesh MARTIN
[2019-03-19] MEDS: Multivits W-Minerals Liquid 15mL UDCUP PER TUBE SCH (11:25)
[2019-03-19] MEDS: Scopolamine 1.5 mg/72 hour Patch TD SCH (13:51)
[2019-03-19] MEDS: Dextrose 5% in Water 1,000 ML IV SCH (13:52)
--- NOTE | 2019-03-19 15:48 | PRG ---
DATE OF SERVICE: 03/19/2019 SERVICE: Pulmonary Medicine. INTERVAL HISTORY: The patient is doing much better from respiratory standpoint. He does not look toxic today. He is breathing much more slowly. He denies any current fevers or chills. He is much more interactive with his family. Overall, he seems to have moved in the right direction. PHYSICAL EXAMINATION: VITAL SIGNS: Afebrile with a T-max of 100.3 overnight; pulse 65; blood pressure 170/75; respirations 27; saturation 96%, currently on T-piece with 28% FiO2. GENERAL: The patient is awake and alert, in no apparent distress. LUNGS: Decent air entry. There is no prolonged expiratory phase or wheezing present. Extensive rhonchi and crackles are noted. HEART: Normal rate and regular. ABDOMEN: Soft, nontender, and nondistended. Bowel sounds are positive. MUSCULOSKELETAL: No cyanosis or clubbing. There is 2+ pitting in the bilateral lower extremities, though it is improved. NEUROLOGIC: He is moving all 4 extremities, albeit weak. LABORATORY DATA: WBC 21.7, hemoglobin 11.1, and platelets 426,000 and rebounding. INR 1.0. Sodium 149, potassium 3.4, chloride 116, bicarb 22, and creatinine is 1.37. Magnesium and phosphorous are excellent. His vancomycin was last checked on the and was 18. Blood cultures x2, respiratory culture, gram stain and culture from the tracheal aspirate are negative to date. IMAGING STUDIES: Chest x-ray demonstrates significant pulmonary vascular congestions and confluent infiltrates throughout bilateral lung hutchison. It is worse in the bibasilar regions. Bilateral pleural effusions are noted. These are all consistent with volume overload. ASSESSMENT: 1. Acute hypoxic respiratory failure, improving. 2. Hypernatremia, recurring. 3. Atrial fibrillation with rapid ventricular response. 4. Cerebrovascular accident, status post tPA, now with some permanent debility. DISCUSSION AND PLAN: I am going to continue the free water. We will actually increase the rate ever so slightly. I will back off on my diuretics to once daily. I am going to replace the potassium. Magnesium and phosphorous fall within the normal limits. We are going to continue supportive care. We will try to mobilize this patient as much as tolerated. Hopefully, he will be able to participate with physical therapy. I believe he is on line for transition out of the hospital to an LTAC facility, where they can continue trach weaning and rehabilitation. If he is still here for the next day or two and his respiratory failure continues to improve, we can consider downsizing his tracheostomy. Job ID: [id number]
[2019-03-19] MEDS: Fish Oil 1,000 MG CAP PO SCH (20:49)
[2019-03-19] MEDS: Acetaminophen 650 MG/20.3 ML UDCUP PER TUBE PRN (20:49)
[2019-03-19] MEDS: Aspirin Chewable 81 MG TAB PER TUBE SCH (20:49)
[2019-03-19] MEDS: Rosuvastatin 20 MG TAB PO SCH (20:49)
[2019-03-20] MEDS: Acetaminophen 650 MG/20.3 ML UDCUP PER TUBE PRN (04:46)
[2019-03-20 05:00] LABS: Anion Gap 11 mmol/L (10-20); BUN (Urea Nitrogen) 27 mg/dL (8.4-25.7); Calc. Creatinine Clearance 68 mL/min (70-130); Calcium 8.2 mg/dL (7.8-10.44); Carbon Dioxide 26 mmol/L (23-31); Chloride 115 mmol/L (98-107); Estimated GFR-MDRD 50; Glucose 110 mg/dL (83-110); Potassium 3.4 mmol/L (3.5-5.1); Sodium 149 mmol/L (136-145)
[2019-03-20] MEDS: Carbidopa/Levodopa 25-100 mg Tablet PO SCH (05:12)
[2019-03-20 05:41] LABS: Band 5 % (5-11); Eosinophils 1 % (0-10); Hemoglobin 12.1 g/dL (14.0-18.0); Lymphocytes 9 % (21-51); MDiff Complete? YES; Mean Corpuscular HGB CONC 32.5 g/dL (32.0-36.0); Mean Corpuscular Hemoglobin 31.8 pg (27.0-31.0); Mean Corpuscular Volume 97.6 fL (78.0-98.0); Mean Platelet Volume 9.1 fL (7.4-10.4); Monocytes 5 % (0-10); Neutrophil 80 % (42-75); Platelet Count 487 thou/uL (130-400); RBC Distribution Width 13.6 % (11.5-14.5); Red Blood Cell (RBC) Count 3.81 mill/uL (4.70-6.10); White Blood Cell (WBC) Count 21.9 thou/uL (4.8-10.8)
--- NOTE | 2019-03-20 07:57 | PRG ---
DATE OF SERVICE: 03/16/2019 SUBJECTIVE: Mr. Mitchell continues to slowly improve. OBJECTIVE: VITAL SIGNS: LABORATORY DATA: White count 26.6, sidtxehveu19.4, platelets 364,000 , sodium 144, potassium 3.1, chloride 112 , bicarb 23, BUN 31, creatinine 1.12. IMPRESSION: 1. Respiratory failure after cerebrovascular accident, now with a trach and a percutaneous endoscopic gastrostomy. becomes available. 2. Atrial fibrillation, . Job ID: [id number]
[2019-03-20] MEDS ORDERED: Carvedilol 25 MG TAB PO SCH (08:00)
--- NOTE | 2019-03-20 08:49 | PRG ---
DATE OF SERVICE: 03/20/2019 SUBJECTIVE: Mr. Mitchell is resting comfortably. No complaints. OBJECTIVE: VITAL SIGNS: Blood pressure 160/70 and pulse 70, it is sinus. LUNGS: Clear. CARDIAC: Normal S1, normal S2. ABDOMEN: Soft and nontender. EXTREMITIES: Mild edema. LABORATORY DATA: His potassium is 3.4, creatinine is 1.4. ASSESSMENT: 1. Paroxysmal atrial fibrillation, maintaining sinus rhythm. 2. Hypokalemia. 3. Renal insufficiency, slightly worse. PLAN: 1. Change from metoprolol to carvedilol. 2. Reduce furosemide. 3. Replete potassium. Job ID: [id number]
[2019-03-20] MEDS ORDERED: Furosemide 40 MG/4 ML VIAL SLOW IVP SCH (09:00)
[2019-03-20] MEDS: Lisinopril 5 MG TAB PER TUBE SCH (09:31)
[2019-03-20] MEDS: Bupropion 150 MG SR TAB PO SCH (09:31)
[2019-03-20] MEDS: Enoxaparin Sodium 100 MG/ML SYRINGE SC SCH (09:31)
[2019-03-20] MEDS: Potassium Chloride 20 MEQ TAB PO SCH (09:31)
[2019-03-20] MEDS: Brimonidine Tartrate 0.2% Ophth Soln 5 ml Bottle EA EYE SCH (09:32)
[2019-03-20] MEDS: Multivits W-Minerals Liquid 15mL UDCUP PER TUBE SCH (09:32)
[2019-03-20] MEDS: Famotidine 20 MG TAB PO SCH (09:32)
[2019-03-20] MEDS: Amlodipine 5 MG TAB PO SCH (09:32)
[2019-03-20] MEDS: Amiodarone 200 MG TAB PO SCH (09:32)
[2019-03-20 11:46] VITALS: BP 166/76
[2019-03-20] MEDS ORDERED: Potassium Chloride 20 MEQ TAB PO SCH (12:00)
[2019-03-20 15:23] VITALS: TEMP 99.2
--- NOTE | 2019-03-20 16:44 | PRG ---
DATE OF SERVICE: 03/20/2019 SUBJECTIVE: Claude Mitchell continues to improve. His mental status, his effort to talk, and his cooperation with physical therapy get a little bit better. His family says his left side is moving better than it was last week. OBJECTIVE: VITAL SIGNS: Stable. He is afebrile. Respiratory rates in the 20s, oximetry is 94% on a trach collar, blood pressure 130/67. LUNGS: Clear. HEART: Regular rhythm. ABDOMEN: Soft and nontender. A new #6 Shiley fenestrated cuffless tracheostomy tube was brought to bedside. His old #8 cuffed tracheostomy was removed intact and a new Shiley was easily inserted and secured in place. Speaking valve will be obtained for the patient. We will continue with supportive care. Job ID: [id number]
--- NOTE | 2019-03-20 21:36 | DIS ---
DATE OF ADMISSION: 03/04/2019 DATE OF DISCHARGE: 03/20/2019 DIAGNOSES AT THE TIME OF ADMISSION: 1. Cerebrovascular accident status post tPA. 2. Acute respiratory failure, intubated for airway protection. 3. Parkinson disease. 4. Hypertension with hypertensive urgency. 5. Dyslipidemia. 6. Anxiety and depression. 7. Chronic kidney disease, stage 3. DIAGNOSES AT THE TIME OF DISCHARGE: 1. Acute cerebrovascular accident in the middle cerebral artery distribution on the right side. 2. Acute respiratory failure with hypoxemia with bilateral infiltrates in both upper lungs, suspected of aspiration. 3. Sepsis. 4. Encephalopathy. 5. Status post tPA. 6. Hypokalemia. 7. Hypernatremia and hyperchloremia. 8. Acute kidney injury. 9. Hypertension. 10. Nonsustained asymptomatic and symptomatic ventricular tachycardia. 11. Parkinson disease. 12. Hypertension with hypertensive urgency. 13. Dyslipidemia. 14. Anxiety and depression. 15. Chronic kidney disease, stage 3. CONSULTANTS: 1. Dr. Langford, Neurology Service. 2. Dr. Castillo, Pulmonary Service. 3. Dr. Angel, Pulmonary Service. 4. Dr. Martinez, Cardiology. 5. Dr. Toeny, General Surgery. 6. Dr. Savage, Cardiology Service. 7. Dr. Boyd, Nephrology Service. HOSPITAL COURSE: The patient is a 73-year-old male, who presented to the emergency room with acute onset of cerebrovascular accident. He had CT angiography done, which showed severe stenosis of distal right M1 segment without complete occlusion. CT of the brain did not show any acute process, just old left frontal cortical infarct. The patient received tPA after the blood pressure was controlled in the emergency room with Card[facility] and he was taken to [facility] for cerebral angiography and per Dr. Velasquez's findings, there was no any blockage. Subsequently, the patient was admitted to ICU. He was intubated. At the time of ER visit, his white count was 6.7, hemoglobin 15.5, platelet count 175,000. ABGs showed pH of 7.41, pCO2 of 38.2, PO2 of 372. Electrolytes were within normal limits. BUN was 12, creatinine 1.46. He was seen by Dr. Langford and Dr. Castillo for Neurology and Pulmonary consultation. He remained on the ventilator and had subsequent CT of the head done without contrast, which showed right parieto-occipital cytotoxic edema compatible with known acute/subacute stroke. There was no intracranial hemorrhage. Also, there was noted complete opacification of the left maxillary sinus and partial opacification of the ethmoid air cells suspicious for sinusitis. The patient was started on enteral feeding and since he was not really waking up much and he remained intubated until his mental condition improved. Followup MRI of the brain was done and showed multifocal acute infarction within the right cerebral hemisphere. There was no associated hemorrhage. Since the patient was not regaining his consciousness to the level that, he would be able to maintain his airways without any major problems. He underwent tracheostomy tube placement and percutaneous endoscopy gastrostomy tube placement by Dr. Toney. Subsequently, the patient went into atrial fibrillation and Cardiology was called. He was treated with intravenous diltiazem and metoprolol, then amiodarone was added. Also because of his acute kidney injury which was most likely hemodynamically mediated, [facility] [facility], Dr. Boyd was consulted. Ultrasound of the kidney was done, which did not show any evidence of acute obstructive uropathy since the time when he went into atrial fibrillation, he was placed on full dose of Lovenox and maintained until the very last day when he was transferred to LTAC which is in [place] when he was switched to Eliquis through the tube. He was started on feeding through the tube. He tolerated the feeding and almost at the end of this day, he had more respiratory distress and chest x-ray showed new infiltrates in both upper lobes. It was felt that most likely this was aspiration from his formula. The patient was finished with antibiotic treatment. Because of diuresis, he went into hypernatremia and hyperchloremia, D5 water was started and his tube feeding was gradually increased with continuous elevation of head of the bed. His electrolytes were replaced. Finally, the patient was discharged to long-term facility. At the time of discharge, he was getting formula through his tube at 60 mL/h. MEDICATIONS: At the time of discharge: 1. Amiodarone 20 mg twice a day. 2. Amlodipine 5 mg once a day. 3. Aspirin 81 mg at bedtime. 4. Bupropion 150 mg daily. 5. Carbidopa levodopa 25/100 one tablet q.8 hours. 6. Carvedilol 25 mg twice a day. 7. [place]-3 fatty acids 1 g at bedtime. 8. Multivitamin one a day. 9. Rosuvastatin 20 mg at bedtime. 10. Potassium chloride 20 mEq every morning. 11. Lisinopril 10 mg once a day. 12. DuoNeb every 4 hours. 13. Furosemide 40 mg IV push daily. 14. Famotidine 20 mg twice a day. 15. Eliquis 5 mg twice a day. 16. Tylenol p.r.n. The patient was seen and examined before he was transferred. TIME SPENT: Time spent on this discharge is more than 30 minutes. Job ID: [id number]
== END 2019-03-20 16:55 | disposition short-term general hospital (02) | DRG 4 ==
LOC: ERS 08:18 → CCL 09:53 → CCU 11:00 → IMCU/EMU 03-18 06:37
PROVIDERS: ADMIT Neurological Surgery; ATTEND Internal Medicine
PROC: 3E03317 Introduction of Other Thrombolytic into Peripheral Vein, Percutaneous Approach (ICD-10-PCS; 2019-03-04)
PROC: 5A1955Z Respiratory Ventilation, Greater than 96 Consecutive Hours (ICD-10-PCS; 2019-03-08)
PROC: 0B958ZZ Drainage of Right Middle Lobe Bronchus, Via Natural or Artificial Opening Endoscopic (ICD-10-PCS; 2019-03-08)
PROC: 0BH18EZ Insertion of Endotracheal Airway into Trachea, Via Natural or Artificial Opening Endoscopic (ICD-10-PCS; 2019-03-08)
PROC: B31R1ZZ Fluoroscopy of Intracranial Arteries using Low Osmolar Contrast (ICD-10-PCS; principal; 2019-03-10)
PROC: 0B113F4 Bypass Trachea to Cutaneous with Tracheostomy Device, Percutaneous Approach (ICD-10-PCS; 2019-03-10)
PROC: 0DH63UZ Insertion of Feeding Device into Stomach, Percutaneous Approach (ICD-10-PCS; 2019-03-10)
DX: I63.311 Cerebral infarction due to thrombosis of right middle cerebral artery (principal); J96.01 Acute respiratory failure with hypoxia; J18.9 Pneumonia, unspecified organism; A41.9 Sepsis, unspecified organism; G81.90 Hemiplegia, unspecified affecting unspecified side; G93.40 Encephalopathy, unspecified; E46 Unspecified protein-calorie malnutrition; N17.9 Acute kidney failure, unspecified; E87.0 Hyperosmolality and hypernatremia; G20 Parkinson's disease; E78.5 Hyperlipidemia, unspecified; H40.9 Unspecified glaucoma; E66.9 Obesity, unspecified; I16.0 Hypertensive urgency; F41.9 Anxiety disorder, unspecified; E87.6 Hypokalemia; F32.9 Major depressive disorder, single episode, unspecified; R13.10 Dysphagia, unspecified; I12.9 Hypertensive chronic kidney disease with stage 1 through stage 4 chronic kidney disease, or unspecified chronic kidney disease; I48.0 Paroxysmal atrial fibrillation; N18.3 Chronic kidney disease, stage 3 (moderate); E87.8 Other disorders of electrolyte and fluid balance, not elsewhere classified; W18.30XA Fall on same level, unspecified, initial encounter; Z88.0 Allergy status to penicillin; Z90.49 Acquired absence of other specified parts of digestive tract; Z88.8 Allergy status to other drugs, medicaments and biological substances; Z95.1 Presence of aortocoronary bypass graft; Z88.7 Allergy status to serum and vaccine; Z98.42 Cataract extraction status, left eye; Z98.41 Cataract extraction status, right eye; Z79.01 Long term (current) use of anticoagulants; Z68.34 Body mass index [BMI] 34.0-34.9, adult
CPT/HCPCS: 31500; 36224; 36415; 36416; 51702; 70450; 70496; 70498; 70551; 71045; 76770; 80048; 80053; 80061; 80202; 81001; 82570; 82805; 83735; 84100; 84300; 84443; 84484; 85007; 85025; 85027; 85610; 85730; 86850; 86900; 86901; 87040; 87070; 87205; 89220; 93005; 93010; 93306; 94002; 94003; 94640; 96365; 96368; 96375; 96376; C1887; J0131; J0360; J0670; J1644; J1650; J1940; J2001; J2060; J2250; J2270; J2543; J2704; J2765; J2997; J3010; J3370; J3480; J3490; J7050; J7620; Q9966; Q9967; S0028